=== PATIENT | female | born 1955 | race Caucasian/White ===

== ENCOUNTER 2021-03-02 12:15 | Emergency (ER) | payer MEDICARE, MEDICAID, SELFPAY ==
--- NOTE | ~2021-03-02 | XR_ITS ---
EXAMINATION: XR shoulder RT min 2V DATE: 03/02/2021 12:57 INDICATION: Right shoulder pain. TECHNIQUE: 4 views of right shoulder were obtained. COMPARISON: None. FINDINGS: Bone alignment is normal. No fracture. There is mild osteoarthritis of glenohumeral joint a nd severe osteoarthritis of acromioclavicular joint. There is calcific tendinitis of the rotator cuff . IMPRESSION: 1. Polyarticular osteoarthritis. 2. Calcific tendinitis of the rotator cuff. Reviewed, dictated and finalized at location A. IVING MANAGER
[2021-03-02 12:27] VITALS: BP 148/66; PULSE 87; RESP 18; TEMP 36.1; O2SAT 99
--- NOTE | 2021-03-02 12:44 | ED.UPPEXIN ---
HPI - Extremity Injury (Upper) General Chief Complaint: Extremity Problem,Nontraumatic Stated Complaint: Shoulder Pain Time Seen by Provider: 03/02/21 12:45 Source: patient and RN notes reviewed Mode of arrival: ambulatory Limitations: no limitations History of Present Illness HPI narrative: 65-year-old female presents to the [facility] with 2 weeks of right posterior shoulder pain. Denies any trauma. Has full range of motion. No numbness or tingling in extremity. Denies chest pain or shortness of breath. Denies any abdominal pain. Related Data Allergies Allergy/AdvReac Type Severity Reaction Status Date / Time acetaminophen Allergy Severe Nausea Verified 08/25/17 21:44 oxycodone Allergy Severe Nausea Verified 08/25/17 21:44 amoxicillin Allergy Mild Verified 02/04/14 15:53 POTASSIUM CLAVULANATE Allergy Mild Uncoded 02/04/14 15:53 Review of Systems Review of Systems: All systems reviewed & are unremarkable except as noted in HPI and below Constitutional: Constitutional: Reports no additional constitutional complaints, Denies chills and Denies fever(s) Eyes: Eyes: Reports no additional eye complaints ENT: Reports system reviewed and no additional complaints, except as documented Cardiovascular: Cardiovascular: Reports no additional cardiovascular complaints and Denies chest pain Respiratory: Respiratory: Reports no additional respiratory complaints, Denies cough and Denies dyspnea Gastrointestinal: Gastrointestinal: Reports no additional gastrointestinal complaints, Denies abdominal pain, Denies nausea and Denies vomiting Musculoskeletal: Musculoskeletal: Reports as per HPI, Reports arthralgias (Right posterior shoulder) and Denies joint swelling Integumentary/Breasts: Skin/Breast: Reports system reviewed and no additional complaints, except as docu, Denies erythema and Denies rash Neurologic: Reports system reviewed and no additional complaints, except as documented Psychiatric: Psychiatric: Reports no additional psychiatric complaints Allergic/Immunologic: Allergic/Immunologic: Reports no additional allergic/immunologic complaints [facility] Past Medical History Medical History (Updated 03/02/21 @ 19:52 by Mora Thornton) Patient denies medical problems Surgical History Surgical History (Updated 03/02/21 @ 19:52 by Mora Thornton) No significant past surgical history Family History Family History Father Family history of diabetes mellitus in first degree relative Mother Hypertension Social History Social History Smoking status: Never smoker Alcohol intake: current Comments At the time of my signature, I reviewed and agree with the nursing past medical, surgical, social, and family history. There is no relevant family history pertinent to the patient complaint. Exam Const: General: healthy appearing, no acute distress and alert Nutritional Appearance: well nourished Orientation/consciousness: patient oriented x3 Limitations: no limitations HENMT: Head: normal to inspection Ears: external ears normal, TM's normal bilaterally and EAC's normal Eyes: Pupils: Equal, round and reactive pupils present Neck: Neck: normal visual inspection, no lymphadenopathy and no meningeal signs Chest: Chest palpation & inspection: normal inspection of the chest Resp: Effort & Inspection: normal respiratory effort and no use of accessory muscles Auscultation: clear to auscultation bilaterally, no crackles, no rales, no rhonchi and no wheezes Cardio: Rate: regular rate Rhythm: regular rhythm GI: GI Palp: Yes Soft to palpation and No Tenderness to palpation present (GI) Back/Spine/Pelvis: Back: no CVA tenderness Skin: General skin exam: normal color Rashes: no rashes Wounds: no wounds Neuro: General: patient oriented x3, moves all extremities, no meningeal signs and no focal motor deficits Speech: normal sp
== END 2021-03-02 13:30 | disposition home or self-care (01) ==
PROVIDERS: Emergency Provider Nurse Practitioner; PCP Physician Assistant
DX: M13.811 Other specified arthritis, right shoulder (principal); M75.31 Calcific tendinitis of right shoulder
CPT/HCPCS: 73030; 99213; G0463

== ENCOUNTER 2021-04-05 01:11 | Day surgery (SDC) | payer MEDICARE, MEDICAID, SELFPAY ==
[2021-03-27 14:19] VITALS: BMI 32.1
[2021-04-05 07:24] VITALS: BP 159/93; PULSE 84; RESP 18; TEMP 36.3; O2SAT 99
--- NOTE | 2021-04-05 07:33 | WPDANESEPPF ---
Anes - Initial Pre Proc Eval Procedure: Operation Date: 04/05/21 09:30 Proposed Procedures p Colonoscopy - Ramin Ferrera MD Date/Time: 04/05/21 07:33 Surgeon: Ramin Ferrera MD Pre Op Diagnosis: change in bowel habits Patient Data Age: 65 Gender: F Height: 1.65 m Weight: 87.7 kg Last Vital Signs Temp 36.3 C L 04/05/21 07:24 Pulse 84 04/05/21 07:24 Resp 18 04/05/21 07:24 BP 159/93 H 04/05/21 07:24 Pulse Ox 99 04/05/21 07:24 Allergies Allergy/AdvReac Type Severity Reaction Status Date / Time amoxicillin AdvReac Mild Nausea and Verified 04/05/21 07:23 Vomiting clavulanic acid AdvReac Mild Nausea and Verified 04/05/21 07:23 [From Augmentin] Vomiting Home Medications Medication Instructions Recorded Confirmed Type bupropion HCl 100 mg PO DAILY 03/27/21 03/27/21 History cyanocobalamin (vitamin B-12) 1,000 mcg SUBCUT WEEKLY 03/27/21 03/27/21 History dulaglutide [Trulicity] 3 mg SUBCUT WEEKLY 03/27/21 03/27/21 History fenofibrate nanocrystallized 145 mg PO DAILY 03/27/21 03/27/21 History gabapentin 600 mg PO TID 03/27/21 03/27/21 History ibuprofen 800 mg PO BID 03/27/21 03/27/21 History insulin degludec [Tresiba 68 unit SUBCUT HS 03/27/21 03/27/21 History FlexTouch U-200] levothyroxine [Euthyrox] 100 mcg PO DAILY 03/27/21 03/27/21 History lisinopril 20 mg PO DAILY 03/27/21 03/27/21 History metformin 1,000 mg PO DAILY 03/27/21 03/27/21 History omeprazole 40 mg PO DAILY 03/27/21 03/27/21 History trazodone 150 mg PO HS 03/27/21 03/27/21 History Patient hx anesthesia problems: none Family hx anesthesia problems: none Results Review: All pre-operative results and documents have been reviewed as part of the pre-operative evaluation. 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 No significant past surgical history Family History Family History Father Family history of diabetes mellitus in first degree relative Mother Hypertension Social History Social History Smoking status: Never smoker Alcohol intake: never Substance use: never Substance use type: does not use Living arrangements: with family Spiritual care concerns: No Anes - Eval Final PreProcedure Day of Procedure 04/05/21 07:33 Patient weight: morbidly obese Heart: regular rate and rhythm Lungs: clear to auscultation Airway: Mallampati scale class II Neurological: alert and oriented Last oral intake: >/= 8 hours ASA classification: III Emergent: no Anesthetic plan: proceed Anesthesia type and monitoring: general GIVS and standard monitoring Results Review: All pre-operative results and documents have been reviewed as part of the pre-operative evaluation. Informed Consent: The patient's anesthetic plan and its attendant risks and benefits were discussed with the patient/family/POA. Questions were solicited and answers provided to the satisfaction of the patient/family/POA.
[2021-04-05] MEDS: LACTATED RINGERS 1,000 ML 150 ML IV CONT (07:50)
--- NOTE | 2021-04-05 08:11 | WPDGICN ---
Assessment and Plan Assessment and plan (1) Change in bowel habit: Code(s): R19.4 - Change in bowel habit Status: Acute Assessment and Plan: Patient has had a change in bowel habits with sudden urgency. Often uncontrolled stools. Plan for patient to try a high-fiber diet fiber supplements may be beneficial. A colonoscopy has been requested will be performed to exclude organic disease. GI Consult Note Consult date/time: 04/05/21 08:11 HPI: Mikala Sahu is a 65 year old female Presents for a colonoscopy. Patient reports recent poor control of stools. She sometimes will wake up in the morning with urgency and bowel movement that is uncontrolled. Patient denies any bleeding. She has no abdominal pain. Symptoms occur intermittently. Patient does have a prior history of colonoscopy that was unremarkable some time ago. Patient notices recent change in symptoms over the last 4-6 months. She presents today for colonoscopy. 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 No significant past surgical history Family History Family History Father Family history of diabetes mellitus in first degree relative Mother Hypertension Social History Social History Smoking status: Never smoker Alcohol intake: never Substance use: never Substance use type: does not use Living arrangements: with family Spiritual care concerns: No Meds Home Medications and Allergies Home Medications Medication Instructions Recorded Confirmed Type bupropion HCl 100 mg PO DAILY 03/27/21 03/27/21 History cyanocobalamin (vitamin B-12) 1,000 mcg SUBCUT WEEKLY 03/27/21 03/27/21 History dulaglutide [Trulicity] 3 mg SUBCUT WEEKLY 03/27/21 03/27/21 History fenofibrate nanocrystallized 145 mg PO DAILY 03/27/21 03/27/21 History gabapentin 600 mg PO TID 03/27/21 03/27/21 History ibuprofen 800 mg PO BID 03/27/21 03/27/21 History insulin degludec [Tresiba 68 unit SUBCUT HS 03/27/21 03/27/21 History FlexTouch U-200] levothyroxine [Euthyrox] 100 mcg PO DAILY 03/27/21 03/27/21 History lisinopril 20 mg PO DAILY 03/27/21 03/27/21 History metformin 1,000 mg PO DAILY 03/27/21 03/27/21 History omeprazole 40 mg PO DAILY 03/27/21 03/27/21 History trazodone 150 mg PO HS 03/27/21 03/27/21 History Allergies Allergy/AdvReac Type Severity Reaction Status Date / Time amoxicillin AdvReac Mild Nausea and Verified 04/05/21 07:23 Vomiting clavulanic acid AdvReac Mild Nausea and Verified 04/05/21 07:23 [From Augmentin] Vomiting Vital Signs Vital Signs - 24 hr 04/05/21 07:24 Temperature 97.3 F L Pulse Rate 84 Respiratory Rate 18 Blood Pressure 159/93 H Pulse Oximetry 99 Exam Narrative: Physical exam reveals patient be alert. Vital signs stable. HEENT exam is unremarkable. Patient is anicteric. Lungs are clear to auscultation and percussion. Heart is without murmur or extra sounds. Abdominal exam bowel sounds are present soft nontender with no organomegaly. Digital external rectal exam is normal.
--- NOTE | 2021-04-05 08:13 | SUR.PREOP ---
BS 121 PER RUBIN
[2021-04-05 08:47] VITALS: BP 108/66; PULSE 73; RESP 19; O2SAT 99
[2021-04-05 08:57] VITALS: BP 134/74; PULSE 75; RESP 22; O2SAT 100
[2021-04-05 09:07] VITALS: BP 133/78; PULSE 77; RESP 21; O2SAT 100
== END 2021-04-05 09:24 | disposition home or self-care (01) ==
PROVIDERS: PCP Physician Assistant; Visit Provider Internal Medicine Gastroenterology
PROC: 0DJD8ZZ Inspection of Lower Intestinal Tract, Via Natural or Artificial Opening Endoscopic (ICD-10-PCS; CPT 45378; principal; 2021-04-05 09:30)
DX: R19.4 Change in bowel habit (principal); D12.3 Benign neoplasm of transverse colon; D12.2 Benign neoplasm of ascending colon; K64.8 Other hemorrhoids; K57.30 Diverticulosis of large intestine without perforation or abscess without bleeding; E11.9 Type 2 diabetes mellitus without complications; E03.9 Hypothyroidism, unspecified; F32.9 Major depressive disorder, single episode, unspecified; E66.9 Obesity, unspecified; Z68.31 Body mass index [BMI] 31.0-31.9, adult; Z79.84 Long term (current) use of oral hypoglycemic drugs; Z79.899 Other long term (current) drug therapy; Z79.4 Long term (current) use of insulin
CPT/HCPCS: 45385; 88305; J2704; J7120

== ENCOUNTER → 2021-06-15 11:02 | Outpatient (CLI) | payer MEDICARE, MEDICAID, SELFPAY ==
--- NOTE | ~2021-06-15 | MM_ITS ---
EXAMINATION: MM screening [facility] BI w alex HISTORY: Screening TECHNIQUE: Craniocaudal and mediolateral oblique 3-D tomosynthesis images were obtained and synthetic 2-D images were generated. CAD analysis was submitted and interpreted. COMPARISON: 09/05/2012 BREAST PARENCHYMAL COMPOSITION: There are scattered areas of fibroglandular density. FINDINGS: There is no evidence of suspicious mass, calcification, or architectural distortion to sugg est malignancy in either breast. There has been no suspicious interval change. IMPRESSION: 1. No mammographic evidence of malignancy. 2. Recommend routine screening mammography in one year. BI-RADS Category 1: Negative Reviewed, dictated and finalized at location A.
--- NOTE | ~2021-06-15 | DEXA_ITS ---
Bone Density Report Name: ERASTO MARIA Age: 65 Sex: Female Ethnicity: White Date of : 1955 Indication: postmenopausal; screening for osteoporosis; Referring Provider: ARVIND, SUNI HDZ Study: Bone densitometry was performed. Exam Date: June 15, 2021 Accession number: [id number] Bone Density: Region BMD T-score Z-score Classification AP Spine (L3, L4) 1.148 0.4 2.3 Normal Femoral Neck (Left) 0.748 -0.9 0.6 Normal Total Hip (Left) 0.975 0.3 1.5 Normal Femoral Neck (Right) 0.680 -1.5 0.0 Osteopenia Total Hip (Right) 0.850 -0.8 0.5 Normal Total Hip Mean 0.913 -0.3 1.0 Normal World Health Organization criteria for BMD impression classify patients as: Normal (T-score at or above -1.0), Osteopenia (T-score between -1.0 and -2.5), or Osteoporosis (T-score at or below -2.5). 10-year Fracture Risk(1): Major Osteoporotic Fracture 8.4% Hip Fracture 0.9% Reported Risk Factors: [place] (), Neck BMD=0.680, BMI=32.1 (1) FRAX(R) Version 3.08. Fracture probability calculated for an untreated patient. Fracture probability may be lower if the patient has received treatment. Previous Exams: Region Exam Age BMD T-score BMD Change BMD Change Date g/cm2 vs Baseline vs Previous AP Spine(L3, L4) 06/15/2021 65 1.148 0.4 -0.004 -0.060 09/05/2012 57 1.208 1.0 0.056* 0.056* 11/13/2007 52 1.152 0.5 Total Hip(Left) 06/15/2021 65 0.975 0.3 -0.182 -0.139 09/05/2012 57 1.115 1.4 -0.043* -0.043* 11/13/2007 52 1.158 1.8 Total Hip(Right) 06/15/2021 65 0.850 -0.8 -0.265 -0.250 09/05/2012 57 1.101 1.3 -0.014 -0.014 11/13/2007 52 1.115 1.4 *Denotes significance at 95% confidence level, LSC for AP Spine = 0.022 g/cm2, LSC for Total Hip = 0.027 g/cm2 Clinical Information Provided by Patient: Has used the following medications: Vitamin D Patient maximum height was 65 Menopause Age: 51 No regular weight bearing exercise Drinks caffeinated beverages Onset of menses at age 12 Number of children 2 Impression: The patient has low bone mass, based on the Right Femoral Neck T-score. The patient has an estimated ten-year risk of hip fracture of 0.9% and an estimated ten-year risk of major fracture of 8.4%, based on the WHO FRAX algorithm. No significant bone loss was observed. Discussion: BONE DE
== END ==
PROVIDERS: PCP Physician Assistant; Visit Provider Physician Assistant
DX: Z12.31 Encounter for screening mammogram for malignant neoplasm of breast (principal); Z78.0 Asymptomatic menopausal state; M85.851 Other specified disorders of bone density and structure, right thigh
CPT/HCPCS: 77063; 77067; 77080

== ENCOUNTER → 2022-06-17 11:13 | Outpatient (CLI) | payer MEDICARE, MEDICAID, SELFPAY ==
--- NOTE | ~2022-06-17 | MM_ITS ---
EXAMINATION: MM screening [facility] BI w alex HISTORY: Screening mammogram TECHNIQUE: Craniocaudal and mediolateral oblique 3-D tomosynthesis images were obtained and synthetic 2-D images were generated. CAD analysis was submitted and interpreted. COMPARISON: 06/15/2021, 09/05/2012 BREAST PARENCHYMAL COMPOSITION: There are scattered areas of fibroglandular density. FINDINGS: RIGHT BREAST: No suspicious mass, calcification, or architectural distortion are identified to sugges t malignancy. There has been no suspicious interval change. LEFT BREAST: There is a possible mass in the middle third of the upper inner breast best appreciated 8.5 cm from the nipple on craniocaudal tomosynthesis image 37/52. IMPRESSION: 1. Possible left breast mass. 2. Additional mammographic views and possible breast ultrasound are recommended. BI-RADS Category 0: Incomplete: Needs additional imaging evaluation. Reviewed, dictated and finalized at location A. IMPRESSION: 1. Possible left breast mass. 2. Additional mammographic views and possible breast ultrasound are recommended . BI-RADS Category 0: Incomplete: Needs additional imaging evaluation.
== END ==
PROVIDERS: PCP Physician Assistant; Visit Provider Physician Assistant
DX: Z12.31 Encounter for screening mammogram for malignant neoplasm of breast (principal); R92.8 Other abnormal and inconclusive findings on diagnostic imaging of breast
CPT/HCPCS: 77063; 77067

== ENCOUNTER → 2022-08-08 08:33 | Outpatient (CLI) | payer MEDICARE, MEDICAID, SELFPAY ==
--- NOTE | ~2022-08-08 | MM_ITS ---
EXAMINATION: MM diagnostic nahid LT w alex HISTORY: Follow-up possible left breast mass TECHNIQUE: Additional 3-D tomosynthesis images of the left breast were performed and synthetic 2-D im ages were generated. CAD analysis was submitted and interpreted. COMPARISON: Comparison to multiple prior studies sequentially, with oldest reviewed study dated 08/2012. BREAST PARENCHYMAL COMPOSITION: Breast composed of scattered areas of fibroglandular density FINDINGS: There are no suspicious masses, calcifications or architectural distortion in the left [address] to suggest malignancy. IMPRESSION: 1. No mammographic evidence for malignancy in the left breast. 2. . Routine yearly screening mammogram and regular clinical breast examination are recommended. BI-RADS Category 1: Negative Reviewed, dictated and finalized at location A.
== END ==
PROVIDERS: PCP Physician Assistant; Visit Provider Physician Assistant
DX: R92.8 Other abnormal and inconclusive findings on diagnostic imaging of breast (principal)
CPT/HCPCS: 77061; 77065; G0279

== ENCOUNTER 2023-08-10 14:32 | Emergency (ER) | payer MEDICARE, MEDICAID, SELFPAY ==
--- NOTE | ~2023-08-10 | XR_ITS ---
Left Humerus Technique: AP and lateral views were obtained. Clinical History: Pain Findings: No fracture or dislocation is seen. Osseous alignment is anatomic. Visualized joint spaces are grossly preserved. Soft tissues are unremarkable. Impression: Unremarkable examination. No fracture or dislocation. Reviewed, dictated and finalized at location . Impression: Unremarkable examination. No fracture or dislocation.
[2023-08-10 14:44] VITALS: BP 141/73; PULSE 85; RESP 14; TEMP 37.1; O2SAT 98
--- NOTE | 2023-08-10 15:23 | ED.EXTPRO ---
HPI - Extremity Problem General Chief complaint: Extremity Problem,Nontraumatic Stated complaint: Bruising Lt Upper Arm Source: patient Mode of arrival: ambulatory Limitations: no limitations History of Present Illness HPI Narrative: Pt presents for evaluation of pain, swelling and bruising to the left upper arm. She states six days ago she was lifting a case of water and felt a quick jolt in her left upper arm. Today she noted swelling, pain and bruising in the affected area. She states at rest her pain is 2/10 in severity. With movements, including reaching overhead and extending the arm, she develops a sharp pain that she rates 7/10 in severity. The pain is quick and then resolves. She has not taken any medication for her symptoms. No loss of ROM. She is right hand dominant. Related Data Home Medications Medication Instructions Recorded Confirmed bupropion HCl 100 mg tablet 100 mg PO DAILY 03/27/21 08/10/23 cyanocobalamin (vitamin B-12) 1,000 mcg subcut WEEKLY 03/27/21 08/10/23 1,000 mcg/mL injection solution dulaglutide 3 mg/0.5 mL 3 mg subcut WEEKLY 03/27/21 08/10/23 subcutaneous pen injector (Trulicity) fenofibrate nanocrystallized 145 145 mg PO DAILY 03/27/21 08/10/23 mg tablet gabapentin 600 mg tablet 600 mg PO TID 03/27/21 08/10/23 ibuprofen 800 mg tablet 800 mg PO BID 03/27/21 08/10/23 insulin degludec 200 unit/mL (3 68 unit subcut HS 03/27/21 08/10/23 mL) subcutaneous pen (Tresiba FlexTouch U-200 insulin) levothyroxine 100 mcg tablet 100 mcg PO DAILY 03/27/21 08/10/23 (Euthyrox) lisinopril 20 mg tablet 20 mg PO DAILY 03/27/21 08/10/23 metformin 1,000 mg tablet 1,000 mg PO DAILY 03/27/21 08/10/23 omeprazole 40 mg capsule,delayed 40 mg PO DAILY 03/27/21 08/10/23 release trazodone 150 mg tablet 150 mg PO HS 03/27/21 08/10/23 rosuvastatin 20 mg tablet 20 mg PO DAILY 08/10/23 08/10/23 Allergies Allergy/AdvReac Type Severity Reaction Status Date / Time acetaminophen Allergy Other Verified 08/10/23 14:42 [From Darvocet-N] propoxyphene Allergy Other Verified 08/10/23 14:42 [From Darvocet-N] amoxicillin AdvReac Mild Nausea and Verified 08/10/23 14:42 Vomiting clavulanic acid AdvReac Mild Nausea and Verified 08/10/23 14:42 [From Augmentin] Vomiting Review of Systems Review of Systems: CONSTITUTIONAL: Denies fever, chills, or sweats. EYES: Denies visual changes, redness, or discharge. ENT: Denies rhinorrhea, congestion, sore throat, or otalgia. CARDIOVASCULAR: Denies chest pain, palpitations, or edema. RESPIRATORY: Denies cough or dyspnea. GASTROINTESTINAL: Denies abdominal pain, nausea, vomiting, or diarrhea. GENITOURINARY: Denies dysuria or hematuria. SKIN: Reports bruising to the left upper arm MUSCULOSKELETAL: Reports pain and swelling to left upper arm NEUROLOGIC: Denies headache, numbness, dizziness, or weakness. PSYCHIATRIC: Denies anxiety or depression. 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 HEAD: Normocephalic, atraumatic. EYES: PERRLA and EOMI. ENT: Nares clear, no rhinorrhea
== END 2023-08-10 16:15 | disposition home or self-care (01) ==
PROVIDERS: Emergency Provider Nurse Practitioner; PCP Physician Assistant
DX: S46.202A Unspecified injury of muscle, fascia and tendon of other parts of biceps, left arm, initial encounter (principal); X50.9XXA Other and unspecified overexertion or strenuous movements or postures, initial encounter; E11.9 Type 2 diabetes mellitus without complications; Z79.4 Long term (current) use of insulin; E03.9 Hypothyroidism, unspecified; E66.01 Morbid (severe) obesity due to excess calories; Z68.33 Body mass index [BMI] 33.0-33.9, adult; Z89.511 Acquired absence of right leg below knee; F32.A Depression, unspecified
CPT/HCPCS: 73060; 99213; A4565; G0463

== ENCOUNTER 2023-09-24 12:42 | Outpatient (CLI) | payer MEDICARE, MEDICAID, SELFPAY ==
--- NOTE | ~2023-09-24 | MM_ITS ---
EXAMINATION: MM screening nahid BI w alex HISTORY: Screening TECHNIQUE: Craniocaudal and mediolateral oblique 3-D tomosynthesis images were obtained and synthetic 2-D images were generated. CAD analysis was submitted and interpreted. COMPARISON: Comparison to multiple prior studies sequentially, with oldest reviewed study dated 01/02. BREAST PARENCHYMAL COMPOSITION: Not dense: There are scattered areas of fibroglandular density. FINDINGS: There is no evidence of suspicious mass, calcification, or architectural distortion to sugg est malignancy in either breast. There has been no suspicious interval change. IMPRESSION: 1. No mammographic evidence of malignancy. 2. Recommend routine screening mammography in one year. BI-RADS Category 1: Negative Reviewed, dictated and finalized at location B.
== END 2023-09-24 12:43 ==
PROVIDERS: PCP Internal Medicine Endocrinology, Diabetes & Metabolism; Visit Provider Physician Assistant
DX: Z12.31 Encounter for screening mammogram for malignant neoplasm of breast (principal)
CPT/HCPCS: 77063; 77067

== ENCOUNTER 2024-01-13 10:39 | Outpatient (CLI) | payer MEDICARE, MEDICAID, SELFPAY ==
--- NOTE | ~2024-01-13 | US_ITS ---
EXAMINATION: US renal BI DATE: 01/13/2024 10:59 INDICATION: Stage IIIB chronic kidney disease TECHNIQUE: Multiple ultrasound grayscale images of the kidneys were obtained. COMPARISON: None. FINDINGS: The right kidney measures 11.4 x 5.4 x 6.8 cm. The left kidney measures 9.9 x 5.3 x 5.3 cm. The kidne ys demonstrate normal echogenicity. There is a focal bulge at the periphery of the mid left kidney wh ich is isoechoic to remainder of the surrounding kidney most likely an anatomic variant dromedary hum p although could not exclude solid neoplasm. There is no hydronephrosis in either kidney. No stones identified. The bladder is normal. IMPRESSION: 1. Focal bulge along the periphery of the mid left kidney most likely a normal dromedary hump but wo uld consider further evaluation with pre- and postcontrast MRI or CT to exclude solid neoplasm. No hy dronephrosis. Reviewed, dictated and finalized at location B. ORY SUPERVISOR IMPRESSION: 1. Focal bulge along the periphery of the mid left kidney most likely a normal dromedary hump but would consider further evaluation with pre- and postcontras t MRI or CT to exclude solid neoplasm. No hydronephrosis.
== END 2024-01-13 10:40 | disposition home or self-care (01) ==
LOC: MICIMG 10:40
PROVIDERS: PCP Physician Assistant; Visit Provider Nurse Practitioner Family
DX: N18.32 Chronic kidney disease, stage 3b (principal)
CPT/HCPCS: 76775

== ENCOUNTER 2024-03-11 14:47 | Outpatient (CLI) | payer MEDICARE, MEDICAID, SELFPAY ==
--- NOTE | ~2024-03-11 | MR_ITS ---
EXAMINATION: MR renal wo/w con DATE: 03/11/2024 15:39 INDICATION: Kidney mass. TECHNIQUE: Magnetic resonance imaging (MRI) of the abdomen was performed without and with 18 mL Multi Elias intravenous contrast. COMPARISON: Kidney ultrasound 01/13/2024 FINDINGS: There is diffuse hepatic steatosis. The gallbladder is absent. The spleen, pancreas, and adrenal glan ds are normal. There is focal cortical thinning of right kidney. There are cysts in right kidney ani uring up to 6 mm. There is mild atrophy of left kidney. There is a dromedary hump of the left kidney correlating with the ultrasound finding. There are no dilated loops of bowel. There are no pathologic ally enlarged lymph nodes. There is no free intraperitoneal fluid. There is severe lumbar spondylosis . IMPRESSION: 1. Normal variant morphology of the left kidney correlating with the ultrasound finding. Reviewed, dictated and finalized at location A. OR ENGINEERING TECH
== END 2024-03-11 14:48 | disposition home or self-care (01) ==
LOC: MICIMG 14:49
PROVIDERS: PCP Physician Assistant; Visit Provider Nurse Practitioner Family
DX: N28.9 Disorder of kidney and ureter, unspecified (principal)
CPT/HCPCS: 74183; A9577

== ENCOUNTER 2024-07-07 12:34 | Outpatient (CLI) | payer MEDICARE, MEDICAID, SELFPAY ==
--- NOTE | ~2024-07-07 | CT_ITS ---
Non-contrast CT scan of the Abdomen Clinical indication: Adrenal adenoma Technique: 2.5 mm axial scans were obtained through the abdomen without intravenous or oral contrast . Dose reduction technique was used on this scan by utilizing automated exposure control and iterativ e reconstruction technique. The dose-length product (DLP) was 687.26 mGy-cm. Findings: Images through the lung bases reveal no abnormalities. The liver, spleen, pancreas, kidneys, and adrenals appear normal. Cholecystectomy clips are present. There is no aortic aneurysm. Visualized bowel loops are unremarkable. No ascites. Impression: No significant abnormality of the adrenal glands. Reviewed, dictated and finalized at location M. Impression: No significant abnormality of the adrenal glands.
== END 2024-07-07 12:35 | disposition home or self-care (01) ==
LOC: MICIMG 12:35
PROVIDERS: PCP Physician Assistant; Visit Provider Internal Medicine Endocrinology, Diabetes & Metabolism
DX: E27.9 Disorder of adrenal gland, unspecified (principal); E11.40 Type 2 diabetes mellitus with diabetic neuropathy, unspecified
CPT/HCPCS: 74150

== ENCOUNTER 2024-09-27 12:10 | Outpatient (CLI) | payer MEDICARE, SELFPAY ==
--- NOTE | ~2024-09-27 | MM_ITS ---
EXAMINATION: MM screening nahid BI w alex HISTORY: Screening TECHNIQUE: Craniocaudal and mediolateral oblique 3-D tomosynthesis images were obtained and synthetic 2-D images were generated. CAD analysis was submitted and interpreted. COMPARISON: Comparison to multiple prior studies sequentially, with oldest reviewed study dated 01/02. BREAST PARENCHYMAL COMPOSITION: Not dense: There are scattered areas of fibroglandular density. FINDINGS: There is no evidence of suspicious mass, calcification, or architectural distortion to sugg est malignancy in either breast. There has been no suspicious interval change. IMPRESSION: 1. No mammographic evidence of malignancy. 2. Recommend routine screening mammography in one year. BI-RADS Category 1: Negative Reviewed, dictated and finalized at location B.
== END 2024-09-27 12:11 | disposition home or self-care (01) ==
LOC: MICIMG 12:10
PROVIDERS: PCP Physician Assistant; Visit Provider Physician Assistant
DX: Z12.31 Encounter for screening mammogram for malignant neoplasm of breast (principal)
CPT/HCPCS: 77063; 77067

== ENCOUNTER 2024-09-29 00:11 | Day surgery (SDC) | payer MEDICARE, SELFPAY ==
[2024-09-13 14:45] VITALS: BMI 29.9
--- OUTSIDE RECORDS SUMMARY | 2024-09-29 00:13 | XMS_ITS ---
Author Organization [facility] Address [address] [place] [address] Care Team Providers Care Electrical Continuity Inspector Name Role Phone Yvonne James Primary Care Provider [phone] REASON FOR VISIT 2 month follow up Encounters Encounter Location Date Provider Diagnosis [facility] - Yvonne James [address] [place] [address] 04/19/2024 Yvonne James Plan Of Treatment No Information Progress Notes * CANDACE AmairaniaDOB:1955 ( 69 yo F)Acc No.[id number]:04/19/2024 Progress Notes Patient: Mikala PARK Provider: Tory James MD :1955 A ge:68 Y S ex:Female Date:04/19/2024 [facility] Subjective: * Chief Complaints: * 1 . 2 month follow up. * Medical History: Objective: * Vitals: Assessment: Plan: * Treatment: * Billing Information: * Visit Code: * Procedure Codes: * Electronic signature of Cosmo James MD on 09/29/2024 at 12:12 AM CDT Sign off status: Pending * Provider: Tory James MD Date: 04/19/2024 Generated for Lazarus chase/Saturnino/Burtitting on: 09/29/2024 12:12 AM CDT
--- OUTSIDE RECORDS SUMMARY | 2024-09-29 00:13 | XMS_ITS ---
Author Organization [facility] Address [address] [place] [phone] Care Team Providers Care Postdoctoral Scholar Name Role Phone Yvonne James Primary Care Provider [phone] REASON FOR VISIT programming pump Encounters Encounter Location Date Provider Diagnosis AMMO Dr. James [address] [place] [phone] 08/24/2024 Yvonne James Plan Of Treatment Next Appt Details Provider Name:Yvonne James, 01:20:00 PM, [address] [place] [address], [phone], Progress Notes * Amairani MARIAaDOB:1955 ( 69 yo F)Acc No.[id number]:08/24/2024 Progress Notes Patient: Mikala Olson Provider: Tory James MD :1955 A ge:69 Y S ex:Female Date:08/24/2024 Address[place] [place] [address] Subjective: * Chief Complaints: * P rogramming pump Billing Information: * Procedure Codes: * Electronic signature of Cosmo James MD on 09/29/2024 at 12:12 AM CDT Sign off status: Pending * Provider: Tory James MD Date: 08/24/2024 Generated for Lazarus chase/Saturnino/eTransmitting on: 09/29/2024 12:12 AM CDT
--- OUTSIDE RECORDS SUMMARY | 2024-09-29 00:13 | XMS_ITS | Clinical Summary ---
Author Organization [facility] Address [address] [place] [address] Care Team Providers Care Director Mba Name Role Phone Adriane Lakeisha CASAS Primary Care Provider [phone] Allergies Active Allergy Reactions Criticality Noted Date Comments Amoxicillin-Pot Clavulanate Hives 09/03/19 19 Oxycodone-Acetaminophen Vomiting 10/14/2018 Medications levothyroxine 100 MCG tablet Take 100 mcg by mouth every morning. Active omeprazole 40 MG capsule Take 40 mg by mouth daily. Active ibuprofen 800 MG tablet Take 800 mg by mouth every 6 (six) hours as needed for Pain. Active atorvastatin 40 MG tablet Take 40 mg by mouth nightly at bedtime. Active omega-3 acid 1 GM capsule Take 10 mg by mouth 2 (two) times daily. Active fenofibrate 145 MG tablet Take 145 mg by mouth daily. Active lisinopril 40 MG tablet Take 40 mg by mouth daily. Active gabapentin 600 MG tablet Take 600 mg by mouth 3 (three) times daily. Active metFORMIN ER, OSM, 1000 MG TABLET SR 24 HR 24 hr tablet Take 1,000 mg by mouth 2 (two) times daily with meals. Active buPROPion 100 MG tablet Take 100 mg by mouth 2 (two) times daily. Active furosemide 20 MG tablet Take 20 mg by mouth daily. Active hydrocodone-khloe taminophen 10-325 MG tablet Take 1 tablet by mouth every 6 (six) hours as needed for Pain. Active zaleplon 5 MG capsule Take 5 mg by mouth nightly at bedtime. Active Social History Tobacco Use Types Packs/Day Years Used Date Smoking Tobacco: Former Cigarettes Q uit: 09/02/1993 Smokeless Tobacco: Never Alcohol Use Standard Drinks/Week Comments No 0 (1 standard drink = 0.6 oz pur e alcohol) AUDIT-C Answer Date Recorded Frequency of Alcohol Consumption Never 09/02/2018 Average Number of Drinks Not on file 019 Frequency of Binge Drinking Not on file 05/2018 Comments No Sex and Gender Information Value Date Recorded Sex Assigned at Not on file Legal Sex Female 4:32 PM CDT Gender Identity Not on file Sexual Orientation Not on file Last Filed Vital Signs Vital Sign Reading Time Taken Comments Blood Pressure 114/62 10/14/2018 9:00 AM CDT Pulse 78 10/14/2018 9:00 AM CDT Temperature 36.4 C (97.6 F) 09/09/2018 7:27 AM CDT Respiratory Rate 16 10/14/2018 9:00 AM CDT Oxygen Saturation 98% 10/14/2018 9:00 AM CDT Inhaled Oxygen Concentration - - Weight 88 kg (194 lb) 10/12/2018 9:22 AM CDT Height 165.1 cm (5' 5) 10/12/2018 9:22 AM CDT Body Mass Index 32.28 10/12/2018 9:22 AM CDT Plan of Treatment Health Maintenance Due Date Last Done Comments Colorectal Cancer Screening Colonoscopy (10 Years) 1955 Hepatitis C 1974 DTaP, Tdap and Td Vaccines ( 1 - Tdap) 07/13/1975 Mammogram Screening 1996 Zoster Vaccines (1 of 2) 2006 Annual Medicare Wellness Visit 2021 Dexa Scan (General) 2021 Pneumococcal Vaccine: 50+ Years (3 of 3 - PCV20 or PCV21) 01/29/2022 01/29/2017, 12/08/2015 COVID-19 Vaccine ( - 2023-2 5 season) 2023 RSV Immunization or 60+ Years (1 - 1-dose 75+ series) 07/13/2031 Meningococcal B Vaccine Aged Out No l onger eligible based on patient's age to complete this topic Meningococcal Vaccine Aged Out No wendy celeste eligible based on patient's age to complete this topic RSV Immunizations Under 20 Months Aged Out No longer eligible b ased on patient's age to complete this topic Medical Devices Implanted Type Area Microchip Specialist Device Identifier Shelf Expiration Date Model / Serial / Lot Iol Bend [employer]ision Zcboo - [id number] Implanted:Qty: 1 on 09/09/2018 by Bjorn Lynn MD at [facility] Lens [employer] 09/19/2021 ZCB00 / / Iol Eran Precision Zcboo - [id number] Implanted:Qty: 1 on 10/14/2018 by Bjorn Lynn MD at [facility] Lens Right: Eye [employer] 07/25/2020 ZCB00 / [id number] / Insurance MEDICAID DEPT OF HUMAN [address] [place] [address] Care Teams Director Mba Relationship Specialty Start Date End Date Lakeisha Forrest PA PCP - General PHYSICIAN SUPERVISOR HARD CANDY 09/09/18
--- OUTSIDE RECORDS SUMMARY | 2024-09-29 00:13 | XMS_ITS | Clinical Summary ---
Author Organization [facility] Address [address] [place] [address] Care Team Providers Care Gas Line Installer Supervisor Name Role Phone Gene Hughes MD Primary Care Provider [phone] Source Comments [facility],non-owned Affiliates and Associated Physician Practices is amultiple site organization consisting of ambulatory clinics and hospital sitesin [place], [place], [place] and [place]. This disclosure is being madepursuant to the Care Everywhere program and may not contain all information available regarding this patient. Last updated 17.[facility] [employer] [employer] [facility] Allergies Active Allergy Reactions Criticality Noted Date Comments Amoxicillin-Pot Clavulanate Skin Reactions,Itching Medium 12/02/2015 Medications * Be aware that medications may not be up to date on this document. Alwaysverify current medications with the patient. insulin lispro (HUMALOG) 100 UNIT/ML vial 7 Active furosemide (LASIX) 20 MG tablet 7 Active HYDROcodone-ac etaminophen (NORCO) 7.5-325 MG tablet 33 tablet 0 7 Active nystatin (MYCOSTATIN) 160934 UNIT/GM ointment Apply 1 tube to affected area BID. 1 tube 0 7 Active gabapentin (NEURONTIN) 300 MG capsule Take 600 mg by mouth TID. 180 capsule 1 7 Active insulin aspart (NOVOLOG) vial Inject 8 Units subcutaneously 3 times daily before meals. 10 mL 0 7 Active insulin glargine (LANTUS) vial Inject 35 Units subcutaneously BID. 10 mL 0 7 Active levothyroxine (SYNTHROID) 100 MCG tablet Take 100 mcg by mouth DAILY. 30 tablet 11 6 Active Probiotic Product (ACIDOPHILUS/G OAT MILK) CAPS Take by mouth DAILY. Active HYDROcodone-ac etaminophen (NORCO) 7.5-325 MG tablet Take 1 tablet by mouth q4h PRN (Pain). Active omeprazole (PRILOSEC) 40 MG capsule Take 40 mg by mouth. Active lisinopril (PRINIVIL; ZESTRIL) 2.5 MG tablet Take 2.5 mg by mouth DAILY. Active buPROPion SR 12hr (WELLBUTRIN-SR ) 100 MG tablet Take 100 mg by mouth DAILY. Active metFORMIN (GLUCOPHAGE) 1000 MG tablet Take 1,000 mg by mouth 2 times daily with morning and evening meal. Active atorvastatin (LIPITOR) 20 MG tablet Take 20 mg by mouth DAILY. Active citalopram (CELEXA) 20 MG tablet Take 20 mg by mouth DAILY. 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 with unspecified severity 02/06/2016 Major depressive disorder, single episode 2015 Resolved Problems Problem Noted Date Diagnosed Date Resolved Date Osteomyelitis 02/06/2016 09/01/2017 Immunizations Immunization Administration Dates Next Due FLU VACCINE TRI IIV3 SPLIT PF IM (FLUVIRIN) 07/2015 PNEUMOCOCCAL PPSV23 12/08/2015 Pneumococcal Pcv13 Conj 01/29/2017 Family History Medical History Relation Name Comments COPD - Chronic Obstructive Pulmonary Disease Father Diabetes Father Elevated Lipids Father Diabetes Paternal Grandmother COPD - Chronic Obstructive Pulmonary Disease Sister Relation Name Status Comments Father Paternal Grandmother Sister Social History Tobacco Use Types Packs/Day Years Used Date Smoking Tobacco: Former Cigarettes Q uit: 07/06/1998 Smokeless Tobacco: Never Alcohol Use Standard Drinks/Week Comments No 0 (1 standard drink = 0.6 oz pur e alcohol) Comments Unknown Sex and Gender Information Value Date Recorded Sex Assigned at Not on file Legal Sex Female 5:23 AM E COMMERCE PROJECT MANAGER Gender Identity Not on file Sexual Orientation Not on file Last Filed Vital Signs Vital Sign Reading Time Taken Comments Blood Pressure 145/78 04/02/2017 12:09 PM E COMMERCE PROJECT MANAGER Pulse 75 04/02/2017 12:09 PM E COMMERCE PROJECT MANAGER Temperature 37.3 C (99.2 F) 04/02/2017 12:09 PM E COMMERCE PROJECT MANAGER Respiratory Rate 20 02/13/2017 10:06 AM E COMMERCE PROJECT MANAGER Oxygen Saturation 97% 02/13/2017 10:06 AM E COMMERCE PROJECT MANAGER Inhaled Oxygen Concentration - - Weight 92.1 kg (203 lb) 04/02/2017 12:09 PM E COMMERCE PROJECT MANAGER Height 167.6 cm (5' 6) 04/02/2017 12:09 PM E COMMERCE PROJECT MANAGER Body Mass Index 32.77 04/02/2017 12:09 PM E COMMERCE PROJECT MANAGER Plan of Treatment Health Maintenance Due Date Last Done Comments BONE DENSITY TESTING 1955 COLOGUARD (AGES 45-75) - COLON CA SCREENING 1955 COLON MONITORING 1955 COLONOSCOPY - COLON CA SCREENING 1956 CT COLONOGRAPHY - COLON CA SCREENING 1955 Colorectal Cancer Screening 1955 FIT - COLON CA SCREENING 1955 FLEX SIG - COLON CA SCREENING 1955 MAMMOGRAM 1955 HEPATITIS C SCREENING 07/08/1974 DTAP/TDAP/TD VACCINES (1 - Tdap) 07/13/1975 ZOSTER VACCINE (1 of 2) 2006 Respiratory Syncytial Virus (RSV) Vaccine Pt: or over 60 yrs (1 - Risk 60-74 years 1-dose series) 2016 DIABETES-FOOT EXAM WITH MONOFILAMENT 06/02/2017 DIABETES-HGB A1C 06/02/2017 01/07/2017, 12/04/2015 DIABETES-SERUM CREATININE 01/13/20182016, 01/12/2017, 01/08/2017, Additional history exists PNEUMOCOCCAL VACCINE 50+ (3 of 3 - PCV20 or PCV21) 01/29/2022 01/29/2017, 12/08/2015 COVID-19 VACCINE ( season) 2023 DEPRESSION SCREENING 03/03/2024 DIABETES - URINE PROTEIN SCREENING 03/03/2024 12/07/2015 INFLUENZA VACCINE (#1) 2024 12/06/2015 HEPATITIS B VACCINE Aged Out No longe r eligible based on patient's age to complete this topic HIB VACCINE Aged Out No longer eligi ble based on patient's age to complete this topic HPV VACCINE Aged Out No longer eligi ble based on patient's age to complete this topic MENINGOCOCCAL (Group B) VACCINE SHARED DECISION-MAKING Aged Out No longer eligible based on patient's age to complete this topic MENINGOCOCCAL GROUPS A/C/Y/W VACCINE Aged Out No longer eligible based on patient's age to complete this topic Procedures Procedure Name Priority Date/Time Associated Diagnosis Comments COMPREHENSIVE METABOLIC PANEL Timed 01/13/2017 6:21 AM E COMMERCE PROJECT MANAGER HEMOGLOBIN A1C Routine 01/07/2017 3:06 PM E COMMERCE PROJECT MANAGER MICROALB/CREAT RATIO URINE RANDOM PANEL Routine 12/07/2015 10:30 AM CDT from Last 3 Months or Most Recently Relevant to Health Maintenance Results * (ABNORMAL) COMPREHENSIVE METABOLIC PANEL (01/13/2017 6:21 AM E COMMERCE PROJECT MANAGER) BUN 11 7 - 26 mg/dL [facility] Creatinine 1.0 0.6 - 1.2 mg/dL [facility] Sodium 143 136 - 145 mmol/L [facility] Potassium 4.1 3.5 - 4.5 mmol/L [facility] Chloride 112(H) 98 - 107 mmol/L [facility] CO2 23 22 - 29 mmol/L [facility] Glucose 68(L) 70 - 115 mg/dL [facility] Calcium 8.8 8.4 - 10.2 mg/dL [facility] Protein Total 5.9(L) 6.0 - 8.3 g/dL [facility] Albumin 2.4(L) 3.4 - 5.0 g/dL [facility] Bilirubin Total 0.2 0.2 - 1.2 mg/dL [facility] Alkaline Phosphatase 104 40 - 150 Units/L [facility] ALT 21 0 - 55 Units/L [facility] AST 26 5 - 34 Units/L [facility] Anion Gap 12 8 - 18 [facility] BUN/Creatinine Ratio 11 7 - 23 [facility] Osmolality Calculated 294 270 - 300 mOsm/kg [facility] Albumin/Globulin Ratio 0.7(L) 1.1 - 2.3 [facility] eGFR 57(L) >60 mL/min/1.7 3 m2 [facility] Blood specimen (specimen) BLOOD SPECIMEN / Unknown 01/13/2017 6:21 AM E COMMERCE PROJECT MANAGER 01/13/2017 6:27 AM E COMMERCE PROJECT MANAGER us Ele Hu MD LAB - CHEMISTRY ORD ERABLES Final Result [facility] [address] [place] [address] * (ABNORMAL) HEMOGLOBIN A1C (01/07/2017 3:06 PM E COMMERCE PROJECT MANAGER) Hemoglobin A1c 13.9(H) 4.4 - 6.3 % [facility] Estimated Average Glucose 352 mg/dL [facility] Comment: HbA1c Interpretation: Treatment target values recommended by ADA and other clinical organizations should be used to evaluate metabolic control in patients. Treatment Target Values: Normal : < 5.7% Pre-diabetes: 5.7-6.4% Diabetes: Equal to or greater than 6.5% Reference: [place] [employer] Standards of Care in Diabetes -2014 In patients 70 years and older consider HbA1c target range of 7.0-7.5% Reference: Diabetes Mellitus in Older People: Position Statement on behalf of the International Association of Gerontology and Geriatrics (IAGG), the Diabetes Working Alliance Party for Older People (EDWPOP), and the International Task Force of Experts in Diabetes. Parish Alonso et al. J [place] [employer]. 2012 Test results diagnostic of diabetes should be repeated for confirmation. The Tosoh G8 assay for the measurement of HbA1c is a National Glycohemoglobin Standardization Program (NGSP)certified method. Results for patients with HbE disease should be interpreted with caution as this hemoglobinopathy has been shown to interfere with the Tosoh G8 assay. Blood specimen (specimen) BLOOD SPECIMEN / Unknown 01/07/2017 3:06 PM E COMMERCE PROJECT MANAGER 01/07/2017 3:18 PM E COMMERCE PROJECT MANAGER Ady Waite MD LAB - CHEMISTRY ORDERABLE S Final Result Performing Organization Address [facility] de Phone Number [address] [phone] * MICROALB/CREAT RATIO URINE RANDOM PANEL (12/07/2015 10:30 AM CDT) Albumin Random Urine <5.0 Not Established mcg/mL [facility] Creatinine Urine 40 Not Established mg/dL [facility] Urine Albumin/Creati nine Ratio <13 <30 mg/g [facility] Albumin/Creati nine Ratio Urine See Comment <30 mg/g [facility] Comment:Unable to calculate the Urine Albumin/Creatinine Ratio due to one or more analyte concentration(s) being outside the measuring limits of the instrument. Urine specimen (specimen) URINE / Unknown 12/07/2015 10:30 AM CDT 12/07/2015 10:33 AM CDT Bin Garcia LAB - URINE CHEMISTRY ORDERA BLES Final Result Performing Organization Address [facility] [address] de Phone Number [address] [phone] from Last 3 Months or Most Recently Relevant to Health Maintenance Insurance MEDICAID - OUT OF STATE [facility] MANAGED MEDICARE ADV Care Teams Gas Line Installer Supervisor Relationship Specialty Start Date End Date Gene Hughes MD [address] [place] [address] PCP - General 12/01/15
--- OUTSIDE RECORDS SUMMARY | 2024-09-29 00:13 | XMS_ITS ---
Author Organization [facility] Address [address] [place] [phone] Care Team Providers Care Stage Technician Name Role Phone Yvonne James Primary Care Provider [phone] REASON FOR VISIT needs new pump reprogrammed Medications Medication SIG (Take, Route, Frequency, Duration) Notes Start Date End Date Status buPROPion HCl 100 MG Tablet 1 tab(s) orally 2 times a day Active Levothyroxine Sodium 112 MCG Tablet TAKE 1 TABLET BY MOUTH ONCE DAILY ONE HOUR BEFORE EATING; Duration: 30 Active Fenofibrate 145 MG Tablet TAKE 1 TABLET BY MOUTH ONCE DAILY AT BEDTIME; Duration: 90 Active Ozempic (1 MG/DOSE) 4 MG/3ML Solution Pen-injector INJECT 1MG ONCE A WEEK; Duration: 84 Active Farxiga 5 MG Tablet 1 tab(s) orally once a day; Duration: 90 days 11/13/2023 Active Omeprazole 40 MG Capsule Delayed Release 1 cap(s) orally once a day Active Gabapentin 300 MG Capsule 1 capsule Orally three times daily; Duration: 90 days 02/12/2024 Active Ibuprofen 800 MG Tablet 1 tab(s) orally 3 times a day Active HumaLOG 100 UNIT/ML Solution as directed subcutaneously 11/13/2023 Active GVOKE HYPOPEN TWO PACK 1 MG/0.2 ML SOLUTION INJECT 1 MG SUBCUTANEOUSLY ONCE NEEDED FOR SUGARS UNDER 50 MG/DL; Duration: 1 DAYS *Please review for potential replacement for e-prescription and drug interaction check* *Reorder from [employer]ell[employer] Light for eRx and Interaction Alerts* 01/05/2024 Active Rosuvastatin Calcium 20 MG Tablet 1 tab(s) orally once a day Active Lisinopril 20 MG Tablet ; Duration: 90 Days Active Dexcom G7 Sensor - Miscellaneous change sensor every 10 days; Duration: 90 days 03/05/2024 Active Ozempic (0.25 or 0.5 MG/DOSE) 2 MG/3ML Solution Pen-injector INJECT 0.5MG SUBCUTANEOUSLY ONCE WEEKLY; Duration: 84 Days Active Encounters Encounter Location Date Provider Diagnosis AMMO Dr. James [address] [place] [phone] 08/17/2024 Yvonne James Plan Of Treatment Next Appt Details Provider Name:Yvonnebrianna James, 01:20:00 PM, [address] [place] [address], [phone], History and Physical Notes * HPI (History of Present Illness) Category Sub-Category Detail Notes Category Not es History of Present Illness 69 yo female comes in for omnipod / reset on her new omnipod 5 pump/transfer from [employer]. She has hypercortisolism. At last visit we discussed recorlev and had patient sign consent to start therapy. At last visit in July we had patient Modify basal settings as follows: 2.5 u/hr at bedtime 2.4 u/hr during daytime continue 1:5 carb ratio Progress Notes * Amairani SAHUElhamB:1955 ( 69 yo F)Acc No.[id number]:08/17/2024 Progress Notes Patient: Mikala Olson Provider: Tory James MD :1955 A ge:69 Y S ex:Female Date:08/17/2024 Address:[address] [place] [address] Subjective: * Chief Complaints: * N eeds new pump reprogrammed * HPI: H istory of Present Illness: 69 yo female comes in for omnipod / reset on her new omnipod 5 pump/transfer from [employer]. S he has hypercortisolism. At last visit we discussed recorlev and had patient sign consent to start therapy. At last visit in July we had patient Modify basal settings as follows: 2.5 u/hr at bedtime 2.4 u/hr during daytime continue 1:5 carb ratio. * Medications: T akingDexcom G7 Sensor - Miscellaneous change sensor every 10 days Rosuvastatin Calcium 20 MG Tablet 1 tab(s) orally once a day Lisinopril 20 MG Tablet Ozempic (0.25 or 0.5 MG/DOSE) 2 MG/3ML Solution Pen-injector INJECT 0.5MG SUBCUTANEOUSLY ONCE WEEKLY HumaLOG 100 UNIT/ML Solution as directed subcutaneously GVOKE HYPOPEN TWO PACK 1 MG/0.2 ML SOLUTION INJECT 1 MG SUBCUTANEOUSLY ONCE NEEDED FOR SUGARS UNDER 50 MG/DL , Notes to Pharmacist: *Please review for potential replacement for e-prescription and drug interaction check* *Reorder from [employer] for eRx and Interaction Alerts*Gabapentin 300 MG Capsule 1 capsule Orally three times daily Ibuprofen 800 MG Tablet 1 tab(s) orally 3 times a day Omeprazole 40 MG Capsule Delayed Release 1 cap(s) orally once a day buPROPion HCl 100 MG Tablet 1 tab(s) orally 2 times a day Ozempic (1 MG/DOSE) 4 MG/3ML Solution Pen-injector INJECT 1MG ONCE A WEEK Farxiga 5 MG Tablet 1 tab(s) orally once a day Levothyroxine Sodium 112 MCG Tablet TAKE 1 TABLET BY MOUTH ONCE DAILY ONE HOUR BEFORE EATING Fenofibrate 145 MG Tablet TAKE 1 TABLET BY MOUTH ONCE DAILY AT BEDTIME Taking Dexcom G7 Sensor - Miscellaneous change sensor every 10 days Taking Rosuvastatin Calcium 20 MG Tablet 1 tab(s) orally once a day Taking Lisinopril 20 MG Tablet Taking Ozempic (0.25 or 0.5 MG/DOSE) 2 MG/3ML Solution Pen-injector INJECT 0.5MG SUBCUTANEOUSLY ONCE WEEKLY Taking HumaLOG 100 UNIT/ML Solution as directed subcutaneously Taking GVOKE HYPOPEN TWO PACK 1 MG/0.2 ML SOLUTION INJECT 1 MG SUBCUTANEOUSLY ONCE NEEDED FOR SUGARS UNDER 50 MG/DL , Notes to Pharmacist: *Please review for potential replacement for e-prescription and drug interaction check* *Reorder from [employer] for eRx and Interaction Alerts*Taking Gabapentin 300 MG Capsule 1 capsule Orally three times daily Taking Ibuprofen 800 MG Tablet 1 tab(s) orally 3 times a day Taking Omeprazole 40 MG Capsule Delayed Release 1 cap(s) orally once a day Taking buPROPion HCl 100 MG Tablet 1 tab(s) orally 2 times a day Taking Ozempic (1 MG/DOSE) 4 MG/3ML Solution Pen-injector INJECT 1MG ONCE A WEEK Taking Farxiga 5 MG Tablet 1 tab(s) orally once a day Taking Levothyroxine Sodium 112 MCG Tablet TAKE 1 TABLET BY MOUTH ONCE DAILY ONE HOUR BEFORE EATING Taking Fenofibrate 145 MG Tablet TAKE 1 TABLET BY MOUTH ONCE DAILY AT BEDTIME Billing Information: * Procedure Codes: * Electronic signature of Cosmo James MD on 09/29/2024 at 12:12 AM CDT Sign off status: Pending * Provider: Tory James MD Date: 08/17/2024 Generated for Lazarus chase/Saturnino/Jorge A on: 09/29/2024 12:12 AM CDT
--- OUTSIDE RECORDS SUMMARY | 2024-09-29 00:13 | XMS_ITS | Patient Health Record ---
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 Name Role Phone Yvonne James Primary Care Provider Meri Puentes Unavailable [phone] Migration, Provider Unavailable Unavailable Allergies Allergen (clinical drug ingredient) Drug/Non Drug Allergy documented on EMR Reaction Allergy Type Onset Date Status amoxicillin / clavulanate Augmentin hives Drug Allergy Active DORVASET (uncoded) Unknown Allergy A ctive Results Component Value Reference Range Notes COMPREHENSIVE METABOLIC PANE L Reviewed date:10/13/2023 12:54:07 PM Interpretation: Performing Lab:[facility], [address], [place], [address] Coty Wang MD Notes/Report: FASTING:YES FASTING: YES PROTEIN, TOTAL AND PROTEIN E LECTROPHORESIS W/ REFL KOTA Reviewed date:10/22/2023 03:36:20 PM Interpretation: Performing Lab:[facility], [address], [place], [address] Coty Wang MD Notes/Report: FASTING:YES FASTING: YES PROTEIN, TOTAL 6.2 6.1-8.1 g/dL ALBUMIN 3.8 3.8-4.8 g/dL ALPHA 1 GLOBULIN 0.2 0.2-0.3 g/dL ALPHA 2 GLOBULIN 0.7 0.5-0.9 g/dL BETA 1 GLOBULIN 0.4 0.4-0.6 g/dL BETA 2 GLOBULIN 0.3 0.2-0.5 g/dL GAMMA GLOBULIN 0.7 0.8-1.7 g/dL INTERPRETATION Hypogammaglobulinemia may be seen in early or evolving lymphoproliferative disorders, acquired or congenital immune deficiencies, immunosuppressive therapy and light chain disease. Consider urine protein electrophoresis, urine immunofixation and/or free light chains if clinically indicated. T3, FREE Reviewed date:10/13/2023 12:54:07 PM Interpretation: Performing Lab:[facility], [address] [place], [address] Coty Wang MD Notes/Report: FASTING:YES FASTING: YES HEMOGLOBIN A1c Reviewed date:10/22/2023 03:37:36 PM Interpretation: Performing [facility], [address], [place], [address] Coty Wang Notes/Report: FASTING:YES FASTING: YES CBC (INCLUDES DIFF/PLT) Reviewed date:10/13/2023 08:40:13 PM Interpretation: Performing Lab:[facility], [address], [place], [address] Coty Wang MD Notes/Report: FASTING:YES FASTING: YES MICROALBUMIN, RANDOM URINE ( W/CREATININE) Reviewed date:10/13/2023 12:54:07 PM Interpretation: Performing Lab:[facility], [address] [place], [address] Coty Wang MD Notes/Report: FASTING:YES FASTING: YES IRON AND TOTAL IRON BINDING CAPACITY Reviewed date:10/13/2023 12:54:07 PM Interpretation: Performing Lab:[facility], [address] [place], [address] Coty Wang MD Notes/Report: FASTING:YES FASTING: YES LIPID PANEL Reviewed date:10/27/2023 08:57:49 AM Interpretation: Performing Lab:[facility], [address] [place], [address] Coty Wang MD Notes/Report: FASTING:YES FASTING: YES PROTEIN, TOTAL AND PROTEIN E LECTROPHORESIS, RANDOM URINE Reviewed date:10/13/2023 12:54:07 PM Interpretation: Performing Lab:[facility], [address] [place], [address] Coty Wang MD Notes/Report: FASTING:YES FASTING: YES CREATININE, RANDOM URINE 102 20-275 mg/dL PROTEIN/CREATININE RATIO 157 24-184 mg/g crea t PROTEIN/CREATININE RATIO 0.157 0.024-0 .184 mg/mg creat PROTEIN, TOTAL, RANDOM UR 16 5-24 mg/dL ALBUMIN 100 [id number] 0 [id number]-4-[id number] 0 BETA GLOBULINS 0 GAMMA GLOBULINS 0 INTERPRETATION Agarose electrophoresis of urine reveals albumin. No abnormal protein is observed. The supplier of the testing reagents for this assay has changed. Detection of small monoclonal proteins may vary by test system. Urine immunofixation is suggested if clinically indicated and not already ordered. T4, FREE Reviewed date:10/13/2023 12:54:07 PM Interpretation: Performing Lab:[facility], [address], [place], [address] Coty Wang MD Notes/Report: FASTING:YES FASTING: YES TSH Reviewed date:10/13/2023 12:54:07 PM Interpretation: Performing Lab:[facility], [address], [place], [address] Coty Wang MD Notes/Report: FASTING:YES FASTING: YES COMPREHENSIVE METABOLIC PANE L Reviewed date:02/12/2024 08:07:25 AM Interpretation: Performing Lab:[facility], [address], [place], [address] Coty Wang MD Notes/Report: FASTING:YES FASTING: YES T3, FREE Reviewed date:02/12/2024 08:07:25 AM Interpretation: Performing Lab:[facility], [address], [place], [address] Coty Wang MD Notes/Report: FASTING:YES FASTING: YES HEMOGLOBIN A1c Reviewed date:02/12/2024 08:07:25 AM Interpretation: Performing Lab:[facility], [address] , [place], [address] Coty Wang Notes/Report: FASTING:YES FASTING: YES CBC (INCLUDES DIFF/PLT) Reviewed date:02/12/2024 08:07:26 AM Interpretation: Performing Lab:[facility], [address], [place], [place], [address] Coty Wang MD Notes/Report: FASTING:YES FASTING: YES MICROALBUMIN, RANDOM URINE ( W/CREATININE) Reviewed date:02/12/2024 08:07:26 AM Interpretation: Performing Lab:[facility], [address], [place], [address] Coty Wang MD Notes/Report: FASTING:YES FASTING: YES LIPID PANEL Reviewed date:02/12/2024 08:07:26 AM Interpretation: Performing Lab:[facility], [address], [place], [address] Coty Wang MD Notes/Report: FASTING:YES FASTING: YES T4, FREE Reviewed date:02/12/2024 08:07:26 AM Interpretation: Performing Lab:[facility], [address], [place], [place], [address] Coty Wang MD Notes/Report: FASTING:YES FASTING: YES TSH Reviewed date:02/12/2024 08:07:26 AM Interpretation: Performing Lab:[facility], [address], [place], [address] Coty Wang MD Notes/Report: FASTING:YES FASTING: YES DEXAMETHASONE (Not yet revie wed by provider) Interpretation: Performing Lab:[facility], [facility],, [address] [place], [address] Cassi Belcher MD,PhD,JULITA Notes/Report: FASTING:YES FASTING: YES CORTISOL, TOTAL (Not yet rev iewed by provider) Interpretation: Performing Lab:[facility], [address], [place], [address] Coty Wang MD Notes/Report: FASTING:YES FASTING: YES Reason For Referral Reason Nephrology Consult Diagnosis 1 Chronic kidney disea se, unspecified (N18.9) Diagnosis 2 Abnormal results of kidney function studies (R94.4) Referral Organization [facility] - Yvonne James Referring Provider First Name Yvonne Referring Provider Last Name Jacob Referring Provider Speciality Internal M edicine Referral Priority Routine Medications Medication SIG (Take, Route, Frequency, Duration) Notes Start Date End Date Status Ibuprofen 800 MG 1 tab(s) orally 3 times a day Unknown Tresiba FlexTouch 200 UNIT/ML INJECT 80 UNITS SUBCUTANEOUSLY ONCE DAILY AT BEDTIME for 68 Days Unknown Gabapentin 600 MG 1 tab(s) orally 3 times a day Unknown HumaLOG 100 UNIT/ML as directed subcutaneously 11/13/2023 Unknown buPROPion HCl 100 MG 1 tab(s) orally 2 times a day Unknown Omeprazole 40 MG 1 cap(s) orally once a day Unknown Vascepa 1 GM 2 cap(s) orally 2 times a day for 90 days 11/13/2023 Unknown Lisinopril 20 MG for 90 Days U nknown Rosuvastatin Calcium 20 MG 1 tab(s) orally once a day Unknown Ozempic (1 MG/DOSE) 4 MG/3ML inject 1 mg subcutaneously once a week for 90 days 01/05/2024 Unknown Fenofibrate 145 MG 1 tab(s) orally once a day for 90 days 09/17/2023 Unknown dexAMETHasone 1 MG 1 tab(s) orally at 10 pm night before 8 am cortisol for 1 days 01/05/2024 Unknown Ozempic (1 MG/DOSE) 4 MG/3ML as directed subcutaneously once a week for 90 days 09/16/2023 Unknown Gabapentin 300 MG 1 capsule Orally three times daily for 90 days 02/12/2024 Unknown Dexcom G7 Sensor - change sensor every 10 days for 90 days 03/05/2024 Active GVOKE HYPOPEN TWO PACK 1 MG/0.2 ML INJECT 1 MG SUBCUTANEOUSLY ONCE NEEDED FOR SUGARS UNDER 50 MG/DL for 1 DAYS *Please review for potential replacement for e-prescription and drug interaction check* 01/05/2024 Unknown Levothyroxine Sodium 112 MCG 1 tab(s) orally once a day for 30 days 09/17/2023 Unknown NovoLOG *Please review and pick correct strength-formulat ion from [employer] options. If intended option is not shown, discontinue and re-order from Quick Search* Unknown Ozempic (0.25 or 0.5 MG/DOSE) 2 MG/3ML INJECT 0.5MG SUBCUTANEOUSLY ONCE WEEKLY for 84 Days Unknown Farxiga 5 MG 1 tab(s) orally once a day for 90 days 11/13/2023 Unknown Problems Problem Type SNOMED Code ICD Code Onset Dates Problem Status W/U Status Risk Notes Problem Hyperglycemia due to type 2 diabetes mellitus (285104524868437) Type 2 diabetes mellitus with hyperglycemia (E11.65) Active confirmed Problem Essential hypertension (31738074) Essential (primary) hypertension (I10) Active confirmed Problem Hypothyroidism (84727441) Hypothyroidism, unspecified (E03.9) Active confirmed Problem Pure hyperglyceridemia (704484562) Pure hyperglyceridemia (E78.1) Active confirmed Problem Obesity (340556945) Obesity, unspecified (E66.9) Active confirmed Problem Diabetic peripheral neuropathy associated with type 2 diabetes mellitus (9804211325886) Type 2 diabetes mellitus with diabetic neuropathy, unspecified (E11.40) Active confirmed Problem Mononeuropathy of lower limb (084630839) 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) Active confirmed Problem Chronic kidney disease (715799610) Chronic kidney disease, unspecified (N18.9) Active confirmed Problem Long-term current use of insulin (139266359) correction (current) use of insulin (Z79.4) Active confirmed Problem Amputated below knee (703007723) Acquired absence of right leg below knee (Z89.511) Active confirmed Vital Signs Heart Rate 86 /min 02/16/2024 SPO2: 97% Blood pressure diastolic 68 mm Hg 02/16/2024 SPO 2: 97% Height 65 in 02/16/2024 SPO2: 97% Blood pressure systolic 134 mm Hg 02/16/2024 SPO2 : 97% Weight 193.4 lbs 02/16/2024 SPO2: 97% BMI 32.18 kg/m2 02/16/2024 SPO2: 97% Encounters Encounter Location Date Provider Diagnosis [facility] [address] [place] [address] 11/20/2023 Meri Puentes Type 2 diabetes abdias itus with diabetic neuropathy, unspecified E11.40 ; Type 2 diabetes mellitus with hyperglycemia E11.65 ; Essential (primary) hypertension I10 ; Acquired absence of right leg below knee Z89.511 ; Pure hyperglyceridemia E78.1 and Chronic kidney disease, unspecified N18.9 [facility] [place] [address] [place] [address] 11/13/2023 Meri Puentes Pure hyperglyceridem ia E78.1 ; Abnormal results of kidney function studies R94.4 ; Anemia, unspecified D64.9 ; Type 2 diabetes mellitus with hyperglycemia E11.65 ; Hypo-osmolality and hyponatremia E87.1 ; Hyperglycemia, unspecified R73.9 ; Chronic kidney disease, unspecified N18.9 ; Hypothyroidism, unspecified E03.9 and Pain in left hand M79.642 [facility] [address] [address] [place] [address] 11/27/2023 Meri Puentes Type 2 diabetes abdias itus with diabetic neuropathy, unspecified E11.40 ; Pure hyperglyceridemia E78.1 ; Chronic kidney disease, unspecified N18.9 and correction (current) use of insulin Z79.4 [facility] [address] [place] [address] 12/04/2023 Meri Puentes Type 2 diabetes abdias itus with diabetic neuropathy, unspecified E11.40 ; Pure hyperglyceridemia E78.1 ; ferry terminal agent (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) use of insulin Z79.4 and Obesity, unspecified E66.9 [facility] Yvonne James [address] [place] [address] 01/05/2024 Yvonne James Type 2 diabetes abdias itus with diabetic neuropathy, unspecified E11.40 ; Hypothyroidism, unspecified E03.9 ; Chronic kidney disease, unspecified N18.9 and Obesity, unspecified E66.9 [facility] Yvonne James [address] [place] [address] 04/19/2024 Yvonne James [facility] Yvonne James [address] [place] [address] 02/16/2024 Yvonne James Type 2 diabetes abdias itus with diabetic neuropathy, unspecified E11.40 ; Chronic kidney disease, unspecified N18.9 ; Obesity, unspecified E66.9 and Dietary counseling and surveillance Z71.3 [facility] [address] [place] [address] 01/17/2024 Provider Migration Type 2 diabetes mellitus with diabetic neuropathy, unspecified E11.40 and Obesity, unspecified E66.9 [facility] [address] [place] [address] 10/09/2023 Yvonne [facility] - Yvonne James [address] [place] [address] 10/13/2023 Yvonne [facility] - vYonne James [address] [place] [address] 10/20/2023 Yvonne James [facility] [address] [place] [address] 10/27/2023 Yvonne [facility] - Yvonne James [address] [place] [address] 10/27/2023 Yvonne [facility] - Yvonne James [address] [place] [address] 12/24/2023 Yvonne James [facility] [address] [place] [address] 12/25/2023 Yvonne James Type 2 diabetes abdias itus with diabetic neuropathy, unspecified E11.40 [facility] [address] [place] [address] 12/26/2023 Yvonne [facility] - Yvonne James [address] [place] [address] 01/12/2024 Yvonne [facility] - Yvonne James [address] [place] [address] 02/09/2024 Yvonne James Unspecified mononeuropathy of left lower limb G57.92 [facility] - Yvonne James [address] [place] [address] 02/16/2024 Yvonne James [facility] [address] [place] [address] 03/05/2024 Yvonne James Type 2 diabetes abdias itus with diabetic neuropathy, unspecified E11.40 [facility] [employer] - Yvonne Jacob [address] [place] [address] 03/30/2024 Yvonne James Assessments Encounter Date Diagnosis (ICD Code) Assessment Notes Treatment Notes Treatment Clinical Notes Section Notes 12/04/2023 Type 2 diabetes mellitus with diabetic neuropathy, unspecified (ICD-10 - E11.40) 11/20/2023 Type 2 diabetes mellitus with hyperglycemia (ICD-10 - E11.65) -Pt educated that she will be stopping her manual insulin injections (both humalog and treseiba) d/t her insulin pump placed today. I will see her in 7-9 days for f/u. She is to call us or [employer] help # if she has any questions. -She was educated on what to do in the event of hypoglycemia - she has GVoke pens that was prescribed by MD James in [place]. 11/20/2023 Type 2 diabetes mellitus with diabetic neuropathy, unspecified (ICD-10 - E11.40) 11/13/2023 Pure hyperglyceridemia (ICD-10 - E78.1) -Discontinue fenofibrate d/t renal impairment. -Tryglycerides elevated. Pt aware that this is related to how her diet reflects. -Inititate vascepa 1g BID. 11/13/2023 Abnormal results of kidney function studies (ICD-10 - R94.4) 11/27/2023 Pure hyperglyceridemia (ICD-10 - E78.1) 11/27/2023 Type 2 diabetes mellitus with diabetic neuropathy, unspecified (ICD-10 - E11.40) 1. Type 2 Diabetes Mellitus and Insulin Pump - Reports of improved blood sugar control, with occasional spikes not exceeding 250 mg/dL. - Average blood sugar recorded at 167 mg/dL, ranging from 111-362 mg/dL. - Currently receiving 54.3 units of insulin daily, with 2.3 boluses per day. Plan: Adjusted insulin pump settings as detailed: increase to 1.9 units/hr from 12 p.m. to 12 a.m.; adjustments to an increase to 2.2 units/hr also made from 12 a.m. to 5 p.m., and return to 1.9 units/hr from 6 p.m. to midnight. Instruct patient to bolus for high blood sugar levels, regardless of meal intake. Schedule a follow-up in one week with Dr. James for reassessment and further adjustments if necessary. 2. Weight Gain - Patient has experienced an increase in weight, from 186 to 192 lbs within one week. Plan: Monitor weight fluctuations and discuss the possibility of insulin-related weight gain. Reevaluate at the subsequent visit. 3. Nephrology Follow-up - Blood work and an ultrasound are scheduled, with a follow-up appointment set for December 31. Plan: Continue with scheduled monitoring and follow-up with nephrology as planned. 4. Fenofibrate - Patient has expressed concerns regarding thinning hair. Plan: Maintain current fenofibrate regimen as recommended by the newspaper manager. Monitor for hair thinning and address potential side effects at the upcoming visit. 5. Insulin Pump Site Management - No reported issues with the pump site; patient has acquired an overpatch from [employer] Plan: Persist with the current site management strategy and keep an eye out for any complications. 6. Follow-up Appointments Plan: Arrange a follow-up appointment with Katlyn for next with myself or with Dr. James in two weeks, based on the patient's preference. Encourage the patient to reach out if any concerns emerge prior to the next scheduled appointment. 12/04/2023 Pure hyperglyceridemia (ICD-10 - E78.1) 01/05/2024 Type 2 diabetes mellitus with diabetic neuropathy, unspecified (ICD-10 - E11.40) 02/16/2024 Type 2 diabetes mellitus with diabetic neuropathy, unspecified (ICD-10 - E11.40) 01/17/2024 Type 2 diabetes mellitus with diabetic neuropathy, unspecified (ICD-10 - E11.40) 12/25/2023 Type 2 diabetes mellitus with diabetic neuropathy, unspecified (ICD-10 - E11.40) 02/09/2024 Unspecified mononeuropathy of left lower limb (ICD-10 - G57.92) 03/05/2024 Type 2 diabetes mellitus with diabetic neuropathy, unspecified (ICD-10 - E11.40) 11/20/2023 Essential (primary) hypertension (ICD-10 - I10) 11/13/2023 Anemia, unspecified (ICD-10 - D64.9) -Consider referral to hematology given no causation for anemia. Pt aware. Will discuss if repeat CBC remains with anemia. 11/27/2023 Chronic kidney disease, unspecified (ICD-10 - N18.9) 12/04/2023 correction (current) use of insulin (ICD-10 - Z79.4) 01/05/2024 Hypothyroidism, unspecified (ICD-10 - E03.9) 02/16/2024 Chronic kidney disease, unspecified (ICD-10 - N18.9) 11/20/2023 Acquired absence of right leg below knee (ICD-10 - Z89.511) 11/13/2023 Type 2 diabetes mellitus with hyperglycemia (ICD-10 - E11.65) -Start farxiga for renal protection. Pt states she has a bottle of something like this at her house that she was worried about hair loss. I advised her to call me and let me know if it is the same medication and the benefits of this to help control her hyperglycemia and poorly controlled diabetes. 11/27/2023 correction (current) use of insulin (ICD-10 - Z79.4) 12/04/2023 Obesity, unspecified (ICD-10 - E66.9) 01/05/2024 Chronic kidney disease, unspecified (ICD-10 - N18.9) 02/16/2024 Obesity, unspecified (ICD-10 - E66.9) 11/20/2023 Pure hyperglyceridemia (ICD-10 - E78.1) 11/13/2023 Hypo-osmolality and hyponatremia (ICD-10 - E87.1) 01/05/2024 Obesity, unspecified (ICD-10 - E66.9) 02/16/2024 Dietary counseling and surveillance (ICD-10 - Z71.3) 01/17/2024 Obesity, unspecified (ICD-10 - E66.9) 11/20/2023 Chronic kidney disease, unspecified (ICD-10 - N18.9) -Pt to f/u with [facility] [employer] today at 3pm after our appt. She will let us know what treatment develops with specialist. I asked her to ask [employer] input on her fenofibrate d/t renal impairment. She reports she is unable to tolerate Vesepa d/t diarrhea. 11/13/2023 Hyperglycemia, unspecified (ICD-10 - R73.9) -Will re-check labs in 6 weeks p insulin pump start. Pt aware. 11/13/2023 Chronic kidney disease, unspecified (ICD-10 - N18.9) 11/13/2023 Hypothyroidism, unspecified (ICD-10 - E03.9) 11/13/2023 Pain in left hand (ICD-10 - M79.642) 11/13/2023 Other 1. Kidney Function and Nephrology Referral - Assessment: Patient has significantly reduced eGFR, previously recorded at 11 and 18, with a recent improvement to 44. Despite this, kidney function remains a concern. - Plan: Ensure successful referral to nephrology for further evaluation and management. Office staff will resend necessary referral documentation and recent labs to [facility]. Follow-up on referral status to ensure patient appointment is scheduled. 2. Diabetes Management and Insulin Pump Training - Assessment: Patient's diabetes management is suboptimal with an A1c of 10.4. Current regimen includes Tresiba and Lispro, with plans to transition to insulin pump therapy for better glucose control. - Plan: Schedule insulin pump training session for next with Dr. James present. Patient instructed to bring insulin Lispro for filling the pods during training. Continue current insulin regimen until pump initiation. 3. Hypertriglyceridemia and Medication Adjustment - Assessment: Patient has high triglycerides, currently managed with fenofibrate. Given the renal concerns, fenofibrate may not be ideal. - Plan: Discontinue fenofibrate and initiate icosapent ethyl (Vascepa) to manage hypertriglyceridemia with less renal impact. Await pharmacist confirmation for this change. 4. Anemia Investigation - Assessment: Patient has anemia with a hemoglobin level of 11.1, not attributed to iron deficiency. The cause is unclear but may be related to chronic disease or kidney function. - Plan: Monitor patient's anemia status and consider further investigation if symptoms of fatigue worsen or do not improve with current interventions. Recheck labs in six weeks post-initiation of insulin pump therapy. 5. Potential Medication Addition for Kidney Protection - Assessment: Discussion about the potential addition of Farxiga for kidney protection, though patient has concerns about side effects. - Plan: Discuss the benefits and risks of Farxiga further with the patient and consider initiating at a follow-up visit if deemed appropriate. 6. Orthopedic Concerns - Assessment: Patient reports pain and locking in the left finger, suggestive of trigger finger. - Plan: Advise patient to consult with an orthopedist if symptoms persist or worsen, to evaluate the need for possible interventions such as joint injections. 7. Follow-up - Plan: Patient scheduled to return next week for insulin pump training. Ensure all preparations, including insulin availability and pump setup, are addressed prior to the visit. Re-evaluate diabetes management, kidney function, and other health concerns at subsequent visits, adjusting treatment plans as necessary. 11/27/2023 Other Patient case di scussed with Meri Puentes NP and I agree with plan and recommendations. 12/04/2023 Other 1. Type 1 Diabetes Mellitus - Blood glucose levels show improvement but remain high in the late evening and overnight. - No episodes of hypoglycemia reported according to [employer] - A1c level in October was 10.4%, with a goal to reduce it closer to 7%. Plan: Adjust glucose goal to 130 with correction for levels above 130. Modified insulin pump settings as noted in her HPI. 2. Diabetic Neuropathy - No reported worsening of neuropathy symptoms. Plan: Continue to monitor symptoms and manage blood glucose levels to prevent further complications. 3. Nephrology - History of kidney function issues with a nephrology appointment scheduled for December 31. Plan: Complete blood work in the first week of December. Continue to monitor kidney function and manage blood glucose levels to prevent further complications. 4. Nutrition and Carb Counting - Improvement needed in carb counting for better insulin dosing accuracy. Plan: Recommend downloading and using a carb manufacturing operations manager [employer] for assistance with dosing. Continue patient education on accurate carb counting and mealtime bolusing. 5. DST -Considering her comorbidities, she may benefit from a DST if her nocturnal hyperglycemia continues despite pump changes. 01/05/2024 Other Assessment and Plan: 1. Type 2 Diabetes Mellitus/insulin requiring due to CKD- Patient using Omnipod 6 and Dexcom G7 sensor, but devices are not communicating, leading to manual mode usage.- Plan: Order Omnipod 5 and G7 Intro Kit for the patient to ensure proper communication between devices. Instruct the patient to bring their insulin, Dexcom sensor, and the box with the serial number to the next appointment for proper setup. 2. Suboptimal glycemic control- Patient taking approximately 80 units of insulin per day.- Plan: Monitor blood glucose levels and adjust insulin regimen as needed once the automated system is set up. 3. Adrenal function evaluation- Dexamethasone test not yet ordered.- Plan: Order dexamethasone test to assess cortisol levels. Instruct the patient to take a 1 mg dexamethasone tablet at 10 p.m. the night before their 8 a.m. cortisol test. 4. Ozempic dosage adjustment- Patient's Ozempic dose increased to 1 mg, but only has 0.5 mg doses available.- Plan: Prescribe additional 1 mg Ozempic doses. Instruct the patient to take two 0.5 mg doses to make 1 mg until the new prescription is available. 5. Follow-up appointment- Plan: Schedule a follow-up appointment for the patient on the , or sooner if the Dexcom or Omnipod pods become available at [facility]. Provide a copy of the patient's recent labs for their kidney doctor. 6. Patient education- Plan: Educate the patient on the proper use of their new Omnipod 5 and G7 sensor system during the next appointment to ensure optimal glycemic control. Spent 25 minutes preparing to see the patient (ex review of tests/chart), obtaining and / or reviewing separately obtained history, performing a medically appropriate examination and/or evaluation, counseling and educating the patient/family/caregiv er, ordering medications, tests, or procedures, referring and communicating with other health personal caregiver, documenting clinical information in the electronic or other health record, independently interpreting results and communicating results to the patient/family/caregiv er and care coordinating patient plan. Patient alert and oriented x 4 and aware of discussion noted above and in agreeance to plan in management of uncontrolled type 2 dM with high insulin requirements, screening for hypercortisolism and fatigue/hypothyroidism . 02/16/2024 Other Assessment and Plan: 1. Type 1 Diabetes Mellitus- The patient is currently using an insulin pump and Dexcom G7 sensor for glucose monitoring and insulin delivery. The patient's glucose levels are not well-controlled, with only 33% in range when reviewing CGM/glooko review. The goal is to achieve at least 70% in range.- Plan: Switch to automated mode on the insulin pump to improve glucose control. Increase basal insulin from 12 AM to 12 PM to 2.2 units and during the day to 2.3 units. Increase correction factor to 35 to drop more per unit. Monitor glucose levels closely and adjust insulin doses as needed. The patient should continue to bolus for meals using the custom food list feature on the pump. 2. Hypoglycemia- The patient reported one episode of nocturnal hypoglycemia (69 mg/dL) at 2 AM.- Plan: Ensure the smart pump is set to not allow glucose levels to drop below 60 mg/dL. The patient should keep a glucagon pen, juice, and caramels on hand for emergency treatment of low blood sugar. She has Gvoke pen at home. 3. Cortisol evaluation- The patient has not yet completed the dexamethasone suppression test due to scheduling issues and side effects from the medication.- Plan: Encourage the patient to complete the dexamethasone suppression test to evaluate cortisol levels, as high cortisol levels may be contributing to the patient's insulin resistance. The patient should follow the instructions provided with the lab order and report any issues or concerns. 4. Insulin pump and sensor management- The patient has experienced some difficulties with the insulin pump and sensor communication and battery life.- Plan: Ensure proper setup and pairing of the insulin pump and Dexcom G7 sensor. Instruct the patient to charge the pump for at least 15-20 minutes daily to maintain battery life. The patient should change the sensor every 10 days and the pod every 3 days, with the sensor being changed first if both are due on the same day. Follow-up:- Schedule a follow-up appointment in a few months to assess the patient's glucose control, insulin adjustments, and the results of the dexamethasone suppression test. The patient should contact the clinic if any issues or concerns arise in the meantime. Spent 15 minutes preventative counseling patient on dietary recommendations and changes in setting of hyperglycemia and concern for hypercortisolism- need to restrict refined sugars and processed foods and incorporate up to 150 minutes of moderate level activity weekly. Need to get DST to screen for cushings syndrome. Spent 25 minutes preparing to see the patient (ex review of tests/chart), obtaining and / or reviewing separately obtained history, performing a medically appropriate examination and/or evaluation, counseling and educating the patient/family/caregiv er, ordering medications, tests, or procedures, referring and communicating with other health personal caregiver, documenting clinical information in the electronic or other health record, independently interpreting results and communicating results to the patient/family/caregiv er and care coordinating patient plan. Patient alert and oriented x 4 and aware of discussion noted above and in agreeance to plan in management of insulin treated type 2 dM with CKD, on automated mode with omnipod 5 pump and dexcom G7 sensor. Plan Of Treatment Pending Test Test Name Order Date - RENAL 09/16/2023 DEXAMETHASONE 04/14/2024 CORTISOL, TOTAL 04/14/2024 Insurance Providers Payer Name Payer Address Payer Phone Subscriber Number Group Number Insured Name Patient Relationship to Insured Coverage Start Date Coverage End Date [facility] [address] [place] [phone] [id number] Mikala Sahu Self - patient is the insured Medical (General) History Medical History History ICD Code Type 2 diabetes mellitus with diabetic n europathy, unspecified E11.40 Hypothyroidism, unspecified E03.9 Acquired absence of right leg below knee Z89.511 Essential (primary) hypertension I10 Hospitalization History Reason Date(Month/Year) [facility] 1975
--- OUTSIDE RECORDS SUMMARY | 2024-09-29 00:13 | XMS_ITS | Data Portability ---
Author Organization [place] - [facility] [employer], Main Office Address [address] [place] [address] Care Team Providers Care Ict Managers Name Role Phone SUNI SAMUELS Primary Care Provider SUNI SAMUELS Referring Provider [phone] Assessment Encounter Date Assessment Date Assessment LastModified by Organization Details LastModified Time 12/26/2022 12/26/2022 This note is dictated and transcribed by [employer]. [employer] Former variances may occur. Despite proofreading, typographical errors may occur. Not available 12/26/2022 14:40:58 06/30/2023 06/30/2023 This note is dictated and transcribed by [employer]. [place] Former variances may occur. Despite proofreading, typographical errors may occur. Occasional wrong-word or '[id number]' substitutions may have occurred due to the inherent limitations of voice recording. Read the chart carefully and recognize, using context, where substitutions have occurred. Not available 06/30/2023 15:21:42 05/28/2024 05/28/2024 68-year-old patient presents today with right shoulder pain that started a few weeks ago. She states in the past she was seen for her right shoulder in 2021. She got a cortisone injection and did not have pain again until recently, 10/10. She denies any new injury to the shoulder. She states she has pain with all movements and lifting. For pain she takes ibuprofen and massage. review of systems per patient questionnaire Imaging: X-rays reviewed show no acute bony abnormality, no fracture. 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 Physical exam: Tenderness to palpitation over posterior shoulder as well as AC joint. Range of motion 150/40/ lower lumbar. Negative Arlette's, 5/5 rotator cuff strength. Sensation intact throughout. She would like to do another cortisone injection today since the last 1 worked so well for her. That was given without issue. We discussed that she should work on shoulder exercises as well, we provided her with a handout today. We can see her back as needed for pain. She is in agreement with this plan. [email or web address] Not available 05/28/2024 11:21:10 Plan of Treatment Reminders Order Date Submit Date Provider Last Modified By Organization Details Last Modified Time Details Appointments None recorded. Lab None recorded. Referral None recorded. Procedures injection/a spiration joint/bursa (PROC) 2024 025 [email or web address] In-Office Order, Internal Use Only DO Not Attach Compendium DO Not Attach Compendium, Do Not Delete/merge, [id number] 10:37:59 Surgeries None recorded. Imaging XR, shoulder, 2 or more view 2024 025 [email or web address] [place], [address], [place], [address], 09:37:08 Medication Orders bupivacaine HCl 0.5 % (5 mg/mL) injection solution [address] [facility] [email or web address], [address], 09:35:56 Kenalog 10 mg/mL suspension for injection [address] [facility], [address] [email or web address], [address], 5 09:35:56 ammonium lactate 12 % lotion 2022 023 [email or web address] [facility], [address] [place], [address], 5 11:52:04 Tresiba FlexTouch U-200 insulin 200 unit/mL (3 mL) subcutaneou s pen [address] [facility] [address], [address] [place], [address], 5 11:57:05 Novolog FlexPen U-100 Insulin aspart 100 unit/mL (3 mL) subcutaneou s [address] [facility] [address] [place], [address], 5 11:56:38 Ozempic 0.25 mg or 0.5 mg (2 mg/1.5 mL) subcutaneou s pen injector [address] [facility] [address] [place], [address], 5 11:56:27 Gvoke HypoPen 2-Pack 1 mg/0.2 mL subcutaneou s auto-inject or [address] [place], [address], 5 11:56:42 levothyroxi ne 112 mcg tablet 2022 023 KELSI [facility] [address], [address] [place], [address], 3 14:48:03 Patient TargetsNo targets recorded. Patient InstructionsNo instructions recorded. Reason for Referral None Reported. Results Created Date Observation Date Name Description Value Unit Range Abnormal Flag Note LastModifiedBy Organization Detail LastModifiedTime 09/24/19 24 09/24/2023 MAMMO , diagn ostic , bilat eral No observ ation record ed. [email or web address] [address], [place], [address], 11/18/2023 10:30:37 05/29/19 25 XR, shoul alexis, 2 or more view No observ ation record ed. [email or web address] [facility] [place] [address], [place], [address], 05/31/2024 09:37:07 07/08/19 25 07/07/2024 imagi ng/di agnos tic resul t No observ ation record ed. [facility] [address], [place], [address], 07/07/2024 15:03:58 07/08/19 25 07/07/2024 imagi ng/di agnos tic resul t No observ ation record ed. [facility] [address], [place], [address], 07/07/2024 15:04:49 Result Notes None recorded. Problems Name Problem SNOMED Code Status Onset Date Resolution Date Notes Provider Name and Address Organization Details Recorded Time Dry skin 21863923 Active Not Available [facility] 3 01:07:56 Type 2 diabetes mellitus 76115867 Active Not Available [facility] 3 01:07:57 Hypothyroi dism 63863189 Active 2017 Not Available [facility] 3 01:07:57 Diabetes mellitus 49791138 Active 2017 Not Available [facility] 3 01:07:58 Hypertensi ve disorder 53551860 Active 2018 Not Available [facility] 3 01:07:57 Hyperlipid emia 21365327 Active 2018 Not Available [facility] 3 01:07:58 Amputated below knee 734334111 Active 2019 Not Available [facility] 3 01:07:56 Mild major depression 31491862 Active 2019 Not Available [facility] 3 01:07:59 Subungual hematoma 627070368 Active 2019 Not Available [facility] 3 01:07:56 Dry skin dermatitis 160588862 Active 2020 Not Available [facility] 3 01:07:56 Amputated right lower limb below knee 535706423 Active 2021 Not Available [facility] 3 01:07:58 Pain of right shoulder joint 9762714768376 9100 Active 2021 Not Available [facility] 3 01:07:56 Uncontroll ed type 2 diabetes mellitus 578938557 Active 2021 Not Available [facility] 3 01:07:57 Dyslipidem ia 993554727 Active 2021 Not Available [facility] 3 01:07:57 Well controlled type 2 diabetes mellitus 517386296 Active 2021 Not Available [facility] 3 01:07:57 Subclinica l hypothyroi dism 58080612 Active 2021 Not Available [facility] 3 01:07:58 Vitamin B12 deficiency (non anemic) 31942914 Active 2021 Not Available [facility] 3 01:07:58 Fecal incontinen ce with fecal urgency 2501199981992 02 Active 2021 Not Available [facility] 3 01:07:56 Eruption 318436929 Active 2021 Not Available [facility] 3 01:07:56 COVID-19 182158386 Active 2021 Not Available [facility] 3 01:07:59 Contact dermatitis 64507804 Active 2021 Not Available [facility] 3 01:07:57 Mixed hyperlipid emia 469049502 Active 2022 Yvonne James MD [address], [place], [address] , [employer] [facility] [employer] [facility] 3 17:20:04 Mammograph y abnormal 928305774 Active 2022 YESSENIA Bell [address], [place], [address] , [employer] [facility] [employer] [facility] 3 16:03:07 Diabetic peripheral neuropathy 277860493 Active 2022 Dustin Anderson DPM [address], [address], [place], [address] , [facility] 3 11:14:49 Foot callus 755938889 Active 2022 Dustin Anderson DPM [address], [address], [place], [address] , [facility] 3 11:14:55 History of amputation of right leg through tibia and fibula 0750725606891 01 Active 2022 Dustin Anderson DPM [address], [address], [place], [address] , [facility] 3 11:15:27 Dystrophia unguium 35203480 Active 2022 Dustin Anderson DPM [address], [address], [place], [address] , [facility] 14:41:52 Notes:COVID-19 pos 10/18/21 Problem Notes None recorded. Procedures Surgical History Date Name Laterality Status Provider Name and Address Organization Details Recorded Time 05/29/19 25 Ortho - Cortisone Injection completed Angelita Sanchez NP [address], [place], [address], [facility] 05/28/2024 11:21:27 06/30/19 24 Nail Debridement completed Dustin Anderson DPM [address], [place], [address], [facility] 06/30/2023 15:19:19 09/27/19 23 Callus Debridement, One completed Dustin Anderson DPM [address], [place], [address], [facility] 09/26/2022 11:13:40 09/24/19 23 Medicare Wellness CPT Code, subsequent completed Rosette Dove RN [facility] 09/23/2022 14:45:41 06/18/19 23 Date of Last Mammogram completed KATRIN Brewer CA - [facility] 09/20/2022 12:33:33 06/16/19 22 Most Recent Bone Density completed Not Available [facility] 05/01/2022 00:54:15 04/05/19 22 Date of Last Colonoscopy completed Not Available [facility] 05/01/2022 00:54:15 04/05/19 22 colonoscopy completed Not Available [facility] 05/01/2022 00:54:26 Unlisted px femur/knee completed Not Available [facility] 05/01/2022 00:54:26 Cholecystectomy completed Not Available [facility] 05/01/2022 00:54:26 amputation of toe completed Not Available [facility] 05/01/2022 00:54:26 Tonsillectomy completed Not Available [facility] 05/01/2022 00:54:26 Tubal Ligation completed Not Available [facility] 05/01/2022 00:54:26 Imaging Results None recorded. Procedure Notes None recorded. Medical Equipment None Reported. Allergies Allergen ID Allergen Name Allergen Category Reaction Reaction Severity Criticality Documentation Date Start Date Code Code System Note Provider Name and Address Organization Details Recorded Time 2402 acetamino phen / oxycodone medicatio n Not available Not available Not available 05/01/2022 62574 3 RxNorm Not Available [facility] 3 01:27:06 2403 Augmentin medicatio n Not available Not available Not available 05/01/2022 69220 2 RxNorm Not Available [facility] 3 01:27:06 Medications Name Sig Start Date Stop Date Status Note LastModified by Organization Details LastModified Time relion pen needles 31g x 8mm 31g x 8 mm misc 05/27 completed Not Available Not Available Not Available amoxicill in 500 mg capsule 08/20 completed Not Available Not Available Not Available fluconazo le 100 mg tablet Take 1 tablet every day by oral route. active Not Available Not Available No t Available atorvasta tin 40 mg tablet Take 1 tablet every day by oral route. 09/14 completed Not Available Not Available Not Available silver sulfadiaz ine 1 % topical cream 07/25 completed Not Available Not Available Not Available metformin 500 mg tablet Take 1 tablet twice a day by oral route before meals for 30 days. active Not Available Not Available No t Available gabapenti n 600 mg tablet TAKE 1 TABLET BY MOUTH THREE TIMES DAILY 05/27 completed Not Available Not Available Not Available doxycycli ne hyclate 100 mg capsule 08/20 completed Not Available Not Available Not Available atorvasta tin 20 mg tablet Take 1 tablet every day by oral route. active Not Available Not Available No t Available clindamyc in HCl 300 mg capsule Take 1 capsule every 6 hours by oral route for 7 days. active Not Available Not Available No t Available ammonium lactate 12 % lotion APPLY LOTION TO FOOT ONCE DAILY NEEDED. 05/27 completed Not Available Not Available Not Available triamcino lone acetonide 0.5 % topical cream APPLY A THIN LAYER TO THE Abdomen BY TOPICAL ROUTE 2 TIMES PER DAY 05/27 completed Not Available Not Available Not Available azithromy tori 250 mg tablet 10/10 completed Not Available Not Available Not Available ibuprofen 800 mg tablet TAKE 1 TABLET BY MOUTH TWICE DAILY WITH FOOD NEEDED 05/27 completed Not Available Not Available Not Available Glucagon Emergency Kit 1 mg solution for injection Take 1 mg as needed by injectio n route as needed for 1 day. active take if sugar under 50 mg/dL and not able to take glucose by mouth Not Available Not Available Not Available nystatin 100,000 unit/gram topical ointment 07/25 completed Not Available Not Available Not Available fluconazo le 150 mg tablet 08/20 completed Not Available Not Available Not Available clarithro mycin 500 mg tablet 08/20 completed Not Available Not Available Not Available hydrocodo ne 5 mg-acetam inophen 325 mg tablet TK 1 T PRN TID FOR 7 DAYS active Not Available Not Available No t Available sucralfat e 1 gram tablet 07/25 completed Not Available Not Available Not Available cefepime 2 gram solution for injection 06/06 completed Not Available Not Available Not Available lisinopri l 20 mg tablet TAKE 1 TABLET BY MOUTH ONCE DAILY IN THE MORNING 05/27 completed Not Available Not Available Not Available bupivacai ne HCl 0.5 % (5 mg/mL) injection solution Take 4 mL by injectio n route. 2024 active Not Available Not Available Not Avai lable ciproflox acin 400 mg/200 mL in 5 % dextrose intraveno us piggyback as directed 06/05 completed Not Available Not Available Not Available Lantus U-100 Insulin 100 unit/mL subcutane ous solution 06/06 completed Not Available Not Available Not Available Accu-Chek Softclix Lancets 04/03 completed Not Available Not Available Not Available metronida zole 500 mg tablet 06/06 completed Not Available Not Available Not Available valacyclo vir 500 mg tablet TAKE 1 TABLET BY MOUTH TWICE DAILY NEEDED FOR 7 DAYS active Not Available Not Available No t Available ciproflox acin 500 mg tablet Take 1 tablet every 12 hours by oral route for 7 days. 08/20 completed Not Available Not Available Not Available sulfameth oxazole 800 mg-trimet hoprim 160 mg tablet 08/20 completed Not Available Not Available Not Available hydrocodo ne 10 mg-acetam inophen 325 mg tablet TK 1 T PO Q 6 H PRN active Not Available Not Available No t Available omeprazol e 40 mg capsule,d elayed release TAKE 1 CAPSULE BY MOUTH ONCE DAILY active Not Available Not Available No t Available liothyron ine 5 mcg tablet Take 1 tablet every day by oral route. 05/27 completed Not Available Not Available Not Available doxycycli ne monohydra te 100 mg tablet 08/20 completed Not Available Not Available Not Available vancomyci n 1,000 mg intraveno us injection 06/06 completed Not Available Not Available Not Available triamcino lone acetonide 0.1 % topical cream APPLY A THIN LAYER TO THE FOOT TOPICALL Y DAILY NEEDED. 05/27 completed Not Available Not Available Not Available bupropion HCl SR 100 mg tablet,12 hr sustained -release 06/06 completed Not Available Not Available Not Available levothyro xine 100 mcg tablet Take 1 tablet by mouth once daily 05/27 completed Not Available Not Available Not Available Lamisil AT 1 % topical cream 07/25 completed Not Available Not Available Not Available bupropion HCl 100 mg tablet TAKE 1 TABLET BY MOUTH TWICE DAILY 05/27 completed Not Available Not Available Not Available citalopra m 20 mg tablet 06/06 completed Not Available Not Available Not Available Kenalog 10 mg/mL suspensio n for injection Take 1 mL by injectio n route. 2024 active [facility]: [phone] 06-20 Not Available Not Available Not Available dexametha sone 1 mg tablet TAKE 1 TABLET BY MOUTH AT 10PM NIGHT BEFORE 8AM CORTISOL active Not Available Not Available No t Available doxycycli ne monohydra te 100 mg capsule Take 1 capsule twice a day by oral route with meals for 7 days. active Not Available Not Available No t Available hydrocodo ne 7.5 mg-acetam inophen 325 mg tablet TK 1 T PO TID FOR 7 DAYS active Not Available Not Available No t Available pantopraz ole 40 mg tablet,de layed release 06/06 completed Not Available Not Available Not Available cyanocoba godwin (vit B-12) 1,000 mcg/mL injection solution INJECT 1 ML SUBCUTAN EOUSLY ONCE A WEEK IN THE MORNING 09/14 completed Not Available Not Available Not Available trazodone 150 mg tablet TAKE 1 TABLET BY MOUTH ONCE DAILY AT BEDTIME 09/14 completed Not Available Not Available Not Available metformin 1,000 mg tablet TAKE 1 TABLET BY MOUTH TWICE DAILY 05/28 completed Not Available Not Available Not Available neomycin- polymyxin -dexameth 3.5 mg/mL-10, 000 unit/mL-0 .1% eye drops 08/20 completed Not Available Not Available Not Available nystatin 100,000 unit/gram topical cream APPLY TO THE VULVAR AREA TOPICALL Y TWICE DAILY NEEDED ONLY. active Not Available Not Available No t Available lisinopri l 10 mg tablet TAKE 1 TABLET BY MOUTH ONCE DAILY active Not Available Not Available No t Available gabapenti n 300 mg capsule TAKE 1 CAPSULE BY MOUTH THREE TIMES DAILY active Not Available Not Available No t Available omeprazol e 20 mg capsule,d elayed release 06/06 completed Not Available Not Available Not Available gentamici n 0.1 % topical cream APPLY A SMALL AMOUNT TO THE AFFECTED AREA BY TOPICAL ROUTE daily 07/25 completed Not Available Not Available Not Available insulin syringe U-100 with needle 0.3 mL 31 gauge x 07/16 completed Not Available Not Available Not Available lisinopri l 5 mg tablet TAKE 1 TABLET BY MOUTH ONCE DAILY IN THE MORNING 07/25 completed Not Available Not Available Not Available furosemid e 20 mg tablet Take 1 tablet every day by oral route. 06/06 completed Not Available Not Available Not Available Novolog U-100 Insulin aspart 100 unit/mL subcutane ous solution USE UP TO 75 UNITS DAILY PER PUMP. active Not Available Not Available No t Available insulin syringe U-100 with needle 1 mL 29 gauge x 1/2 09/15 completed Not Available Not Available Not Available vancomyci n 10 gram intraveno us solution 06/06 completed Not Available Not Available Not Available zaleplon 5 mg capsule TAKE 1 CAPSULE BY MOUTH ONCE DAILY AT BEDTIME active Not Available Not Available No t Available insulin lispro (U-100) 100 unit/mL subcutane ous solution INJECT UP TO 60 UNITS VIA INSULIN PUMP ONCE DAILY active Not Available Not Available No t Available cefuroxim e axetil 500 mg tablet 06/06 completed Not Available Not Available Not Available levofloxa tori 500 mg tablet 08/20 completed Not Available Not Available Not Available lisinopri l 40 mg tablet TAKE ONE TABLET BY MOUTH ONCE DAILY IN THE MORNING 06/06 completed Not Available Not Available Not Available cefdinir 300 mg capsule Take 1 capsule every day by oral route. 12/08 completed Not Available Not Available Not Available fluoxetin e 20 mg capsule 06/06 completed Not Available Not Available Not Available fluticaso ne propionat e 50 mcg/actua tion nasal spray,sherrill pension 07/25 completed Not Available Not Available Not Available lisinopri l 2.5 mg tablet Take 1 tablet every day by oral route. 06/06 completed Not Available Not Available Not Available gentamici n 0.1 % topical ointment active Not Available Not Available Not Available levothyro xine 112 mcg tablet TAKE 1 TABLET BY MOUTH ONCE DAILY ONE HOUR BEFORE EATING. active Not Available Not Available No t Available insulin lispro (U-100) 100 unit/mL subcutane ous pen INJECT 15 UNITS SUBCUTAN EOUSLY THREE TIMES DAILY BEFORE MEAL(S) 05/27 completed Not Available Not Available Not Available pen needle, diabetic 31 gauge x 5/16 USE 1 FIVE TIMES DAILY 05/27 completed Not Available Not Available Not Available escitalop vera 10 mg tablet Take 1 tablet every day by oral route. 06/06 completed Not Available Not Available Not Available Novolog FlexPen U-100 Insulin aspart 100 unit/mL (3 mL) subcutane ous Inject 20 units 3 times a day by subcutan eous route before meals for 30 days. 05/27 completed Not Available Not Available Not Available rosuvasta tin 10 mg tablet Take 1 tablet every day by oral route. 11/05 completed Not Available Not Available Not Available rosuvasta tin 20 mg tablet TAKE 1 TABLET BY MOUTH ONCE DAILY 05/27 completed Not Available Not Available Not Available fenofibra te micronize d 145 mg tablet Take 1 tablet every day by oral route at bedtime. 07/25 completed Not Available Not Available Not Available Pen Needle 31 gauge x 1/4 03/20 completed Not Available Not Available Not Available omega-3 acid ethyl esters 1 gram capsule TAKE 2 CAPSULES BY MOUTH TWICE DAILY BEFORE MEAL(S) 06/06 completed Not Available Not Available Not Available Lunesta 2 mg tablet Take 1 tablet as needed by oral route at bedtime. 09/02 completed Not Available Not Available Not Available valacyclo vir prn 04/10 completed Not Available Not Available Not Available Tylenol PM Takes PRN 05/27 completed Not Available Not Available Not Available Hair,Skin and Nails Takes daily 05/27 completed Not Available Not Available Not Available Levemir U-100 Insulin 100 unit/mL subcutane ous solution 06/06 completed Not Available Not Available Not Available Insulin Syringe 0.5 mL 29 gauge x 1/2 09/15 completed Not Available Not Available Not Available fenofibra te nanocryst allized 145 mg tablet TAKE 1 TABLET BY MOUTH ONCE DAILY 05/27 completed Not Available Not Available Not Available Lantus Solostar U-100 Insulin 100 unit/mL (3 mL) subcutane ous pen Inject 40 units twice a day by subcutan eous route. 06/06 completed Not Available Not Available Not Available Humalog KwikPen Insulin 10 units TID 05/26 completed Not Available Not Available Not Available omeprazol e 20 mg tablet,de layed release 06/06 completed Not Available Not Available Not Available diclofena c 1 % topical gel APPLY TWO GRAMS TO SINGLE ELBOW, WRIST, OR HAND FOUR TIMES DAILY; HAND INCLUDES PALM/FIN GERS/ZACHERY K OF HAND 04/03 completed Not Available Not Available Not Available Besivance 0.6 % eye drops,sherrill pension 07/25 completed Not Available Not Available Not Available levothyro xine 100 mcg capsule Take 1 capsule every day by oral route. 04/10 completed Not Available Not Available Not Available insulin syringe U-100 with needle 1 mL 31 gauge x 15/64 USE WITH B12 INJECTIO NS ONCE WEEKLY DIRECTED 05/27 completed Not Available Not Available Not Available Contour Next Test Strips USE TO TEST BLOOD SUGAR SIX TIMES DAILY BEFORE MEALS AND DIRECTED active Not Available Not Available No t Available icosapent ethyl 1 gram capsule TAKE 2 CAPSULES BY MOUTH TWICE DAILY BEFORE MEAL(S) 05/27 completed Not Available Not Available Not Available Lotemax 0.5 % eye gel drops 07/25 completed Not Available Not Available Not Available Prolensa 0.07 % eye drops 07/25 completed Not Available Not Available Not Available Farxiga 10 mg tablet Take 1 tablet every day by oral route. 06/06 completed Not Available Not Available Not Available Farxiga 5 mg tablet TAKE 1 TABLET BY MOUTH ONCE DAILY active Not Available Not Available No t Available Jardiance 25 mg tablet Take 1 tablet every day by oral route. 05/16 completed Not Available Not Available Not Available Trulicity 1.5 mg/0.5 mL subcutane ous pen injector Inject 1.5 mg every week by subcutan eous route in the morning for 28 days. 05/27 completed Not Available Not Available Not Available Trulicity 0.75 mg/0.5 mL subcutane ous pen injector Inject 0.75 mg every week by subcutan eous route in the morning for 30 days. active Not Available Not Available No t Available OneTouch Verio Meter 03/20 completed Not Available Not Available Not Available Centrum [place] Women Takes daily 04/03 completed Not Available Not Available Not Available Toujeo SoloStar U-300 Insulin 300 unit/mL (1.5 mL) subcutane ous pen Inject 20 units every day by subcutan eous route in the evening. 04/14 completed Not Available Not Available Not Available Toujeo SoloStar U-300 Insulin 20 units in evening 06/06 completed Not Available Not Available Not Available Tresiba FlexTouch U-200 insulin 200 unit/mL (3 mL) subcutane ous pen INJECT 80 UNITS SUBCUTAN EOUSLY ONCE DAILY AT BEDTIME 05/27 completed Not Available Not Available Not Available Shingrix (PF) 50 mcg/0.5 mL intramusc ular suspensio n, kit PHARMACI ST ADMIN[facility] ERED IMMUNIZA TION ADMINIST ERED AT TIME OF DISPENSI NG 09/15 completed Not Available Not Available Not Available Ozempic 0.25 mg or 0.5 mg (2 mg/1.5 mL) subcutane ous pen injector Inject 0.5 mg every week by subcutan eous route at dinner for 90 days. 05/27 completed Not Available Not Available Not Available Lotemax SM 0.38 % eye gel drops 07/25 completed Not Available Not Available Not Available Fluzone Quad (PF) 60 mcg (15 mcg x 4)/0.5 mL IM syringe PHARMACI ST ADMINIST ERED IMMUNIZA TION ADMINIST ERED AT TIME OF DISPENSI NG active Not Available Not Available No t Available Gvoke HypoPen 1-Pack 1 mg/0.2 mL subcutane ous auto-inje ctor INJECT 1MG SUBCUTAN EOUSLY ONCE NEEDED FOR SUGARS UNDER 50MG/DL 05/27 completed Not Available Not Available Not Available Fluzone Quad (PF) 60 mcg (15 mcg x 4)/0.5 mL IM syringe ADM 0.5ML IM UTD active Not Available Not Available No t Available Trulicity 3 mg/0.5 mL subcutane ous pen injector INJECT 3MG (1 PEN) SUBCUTAN EOUSLY ONCE A WEEK IN THE MORNING 09/14 completed Not Available Not Available Not Available Pfizer COVID-19 Vaccine (EUA) 09/15 completed Not Available Not Available Not Available Ozempic 1 mg/dose (4 mg/3 mL) subcutane ous pen injector INJECT 1MG SUBCUTAN EOUSLY ONCE WEEKLY DIRECTED 05/27 completed Not Available Not Available Not Available Paxlovid 300 mg (150 mg x 2)-100 mg tablets in a dose pack 300 mg nirmatre lvir (two 150 mg tablets) with 100 mg ritonavi r (one 100 mg tablet) with all three tablets taken together orally twice daily for 5 days. DO NOT take fenofibr ate or rosuvast atin for 7 days. active Not Available Not Available No t Available Omnipod 5 G6 Pods (Gen 5) subcutane ous cartridge USE DIRECTED . CHANGE EVERY 72 HOURS active Not Available Not Available No t Available Dexcom G7 Sensor device CHANGE SENSOR EVERY 10 DAYS active Not Available Not Available No t Available Ozempic 0.25 mg or 0.5 mg (2 mg/3 mL) subcutane ous pen injector INJECT 0.5 MG SUBCUTAN OUSLY ONCE WEEKLY. active Not Available Not Available No t Available Omnipod 5 G6-G7 Intro Kit(Gen 5) subcutane ous cartridge and controlle r USE DIRECTED active Not Available Not Available No t Available Omnipod 5 G6-G7 Pods (Gen 5) subcutane ous cartridge USE DIRECTED . CHANGE EVERY 3 DAYS active Not Available Not Available No t Available Omnipod 5 (G6/Dasia 2 Plus) subcutane ous cartridge active Not Available Not Available No t Available Vitals Date Recorded Body height Heart rate Respiratory rate Oxygen saturation Oxygen saturation in Arterial blood by Pulse oximetry Systolic And Diastolic Provider Name and Address Organization Details Last Updated DateTime 4 167.64 cm 98 /min 14 /min 99 % 99 % 117/70 mm[Hg] Anca HOWARD - [facility] 4 14:19:10 Date Recorded Body height Body mass index (BMI) Body weight Provider Name and Address Organization Details Last Updated DateTime 05/28/2024 162.56 cm 32.6 kg/m2 03560.55 g Luh Real ATC L [facility] 05/28/2024 10:20:28 Date Recorded Body height Body mass index (BMI) Body weight Heart rate Respiratory rate Oxygen saturation Oxygen saturation in Arterial blood by Pulse oximetry Systolic And Diastolic Provider Name and Address Organization Details Last Updated DateTime 4 167.64 cm 32.3 kg/m2 85318.4 7 g 91 /min 14 /min 98 % 98 % 136/65 mm[Hg] Merline Munir [facility] 4 14:39:01 Date Recorded Body height Body mass index (BMI) Body weight Body temperature Respiratory rate Heart rate Systolic And Diastolic Provider Name and Address Organization Details Last Updated DateTime 3 167.64 cm 32.3 kg/m2 10016.4 7 g 98 [degF] 14 /min 92 /min 141/71 mm[Hg] Smiley Perdomo RN [facility] 3 14:30:55 Date Recorded Body height Body mass index (BMI) Body weight Heart rate Respiratory rate Oxygen saturation Oxygen saturation in Arterial blood by Pulse oximetry Systolic And Diastolic Provider Name and Address Organization Details Last Updated DateTime 3 167.64 cm 32.3 kg/m2 31072.4 7 g 93 /min 14 /min 98 % 98 % 117/72 mm[Hg] Merline Amaral [facility] 3 14:08:34 Social History Question Answer Notes LastModified by Organizat ion Details LastModified Time Tobacco Smoking Status Never Smoker Not Available [facility] 05/01/2022 00:49:05 Do You Have An Advance Directive? No [id number].[id number] Information not available 05/01/2022 Are You Blind Or Do You Have Difficulty Seeing? No MIGRATION.136435 6227 Information not available 05/01/2022 What Is Your Level Of Caffeine Consumption? Moderate MIGRATION.328686 1890 Information not available 05/01/2022 How Much Tobacco Do You Chew? None MIGRATION.957303 0292 Information not available 05/01/2022 In The 14 Days Before Symptom Onset, Have You Had Close Contact With A Laboratory-confirm ed COVID-19 While That Case Was Ill? No MIGRATION.246010 1276 Information not available 05/01/2022 In The 14 Days Before Symptom Onset, Have You Had Close Contact With A Person Who Is Under Investigation For COVID-19 While That Person Was Ill? No MIGRATION.223578 2364 Information not available 05/01/2022 Are You Deaf Or Do You Have Serious Difficulty Hearing? No MIGRATION.197273 7124 Information not available 05/01/2022 What Type Of Diet Are You Following? REGULAR MIGRATION.285184 2896 Information not available 05/01/2022 Which Illicit Or Recreational Drugs Have You Used? None MIGRATION.093321 8555 Information not available 05/01/2022 Have There Been Any Changes To Your Family Or Social Situation? No MIGRATION.739211 5336 Information not available 05/01/2022 When Did You Quit Smoking? 16+yearssince lastcigarette MIGRATION.015946 5432 Information not available 05/01/2022 Do You Use Insect Repellent Routinely? No MIGRATION.987251 7266 Information not available 05/01/2022 Advance Directive- Providers Has Reviewed Directive And Consents To Follow Them (insert Provider Name With Any Objectives In Notes Field) No MIGRATION.886329 9839 Information not available 05/01/2022 Do You Have A Medical Power Of Power Electronics Research Engineer? No MIGRATION.151362 8098 Information not available 05/01/2022 What Was The Date Of Your Most Recent Tobacco Screening? 04/03/2021 MIGRATION.391173 8798 Information not available 05/01/2022 How Many Children Do You Have? 2 MIGRATION.610601 6403 Information not available 05/01/2022 What Is Your Current Pack Years? 30ormorepacky ears MIGRATION.967795 8315 Information not available 05/01/2022 Do You Have Any Pets? Yes MIGRATION.173641 0242 Information not available 05/01/2022 What Is Your Relationship Status? MIGRATION.671110 4782 Information not available 05/01/2022 Do You Use Your Seat Belt Or Car Seat Routinely? Yes MIGRATION.621308 5569 Information not available 05/01/2022 Do You Have Smoke And Carbon Monoxide Detectors In Your Home? Yes MIGRATION.611527 5770 Information not available 05/01/2022 Are You Passively Exposed To Smoke? No MIGRATION.579592 1960 Information not available 05/01/2022 Are There Any Smokers In Your House? No MIGRATION.754780 9662 Information not available 05/01/2022 How Much Tobacco Do You Smoke? 3+ PPD MIGRATION.692679 7461 Information not available 05/01/2022 Do You Use Sunscreen Routinely? No MIGRATION.226881 5290 Information not available 05/01/2022 Have You Recently Traveled Abroad? No MIGRATION.586683 4350 Information not available 05/01/2022 Do You Have Difficulty Walking Or Climbing Stairs? No MIGRATION.486772 6571 Information not available 05/01/2022 Do You Have Any Dietary Restrictions? No MIGRATION.150464 6235 Information not available 05/01/2022 Sex: Unknown Functional Status Question Answer Note LastModified by [employer] ion Details LastModified Time Do you use any illicit or recreational drugs? No MIGRATION.698854 3365 Information not available 05/01/2022 Do you or have you ever used any other forms of tobacco or nicotine? No MIGRATION.057288 6553 Information not available 05/01/2022 What is your level of alcohol consumption? None MIGRATION.365201 9693 Information not available 05/01/2022 Do you or have you ever used smokeless tobacco? Never used smokeless tobacco MIGRATION.063105 7015 Information not available 05/01/2022 Do you have transportation difficulties? No MIGRATION.350760 4751 Information not available 05/01/2022 Are you able to walk? [place] [address] Information not available 09/23/2022 Do you have difficulty doing errands alone? No MIGRATION.330051 8436 Information not available 05/01/2022 Are you able to care for yourself independently? Yes MIGRATION.003969 5267 Information not available 05/01/2022 Do you have difficulty dressing, bathing, grooming, or toileting? No MIGRATION.576993 5076 Information not available 05/01/2022 Do you or have you ever used e-cigarettes or vape? Never used electronic cigarettes MIGRATION.797379 2450 Information not available 05/01/2022 What is your exercise level? None MIGRATION.808702 5424 Information not available 05/01/2022 Mental Status Question Answer Note LastModified by [employer] ion Details LastModified Time Do you have difficulty concentrating, remembering or making decisions? No MIGRATION.[id number] 6 Information not available 05/01/2022 Family History Relationship Description Onset Age of this Age Resolved Age Notes LastModified by Organization Details LastModified Time Father Diabetes mellitus [id number] Not available 05/01/2022 00:54:30 Medical History Condition Response DIABETES, TYPE Y DEPRESSION (INCLUDING POST ) Y HYPERTENSION Y HIGH CHOLESTEROL / HYPERLIPIDEMIA Y HYPOTHYROIDISM Y Gynecological History Statement/Question Response Date of Last Mammogram 06/15/2021 Date of Last Colonoscopy 04/05/2021 Date of Last Mammogram 06/17/2022 Most Recent Bone Density 06/15/2021 Sexually Active? Y Obstetrics History GPAL:G 2 P 0 0 0 2 Type Value Living 2 Total 2 Immunizations Vaccine Type Date Status Note Provider Nam e and Address Organization Details Recorded Time RSV, recombinant, protein subunit RSVpreF, adjuvant reconstituted, 0.5 mL, PF 3 completed Rosette Dove RN null, [facility] 12/31/2022 16:04:40 Influenza, adjuvanted, quadrivalent, PF 3 completed Rosette Dove RN null, [facility] 12/31/2022 16:06:11 COVID-19, mRNA, LNP-S, PF, demian-sucrose, 30 mcg/0.3 mL 3 completed Elif Hearn MA null, [facility] 01/01/2023 09:25:41 Pneumococcal conjugate PCV 13 2 completed Not Available [facility] 05/01/2022 01:26:27 COVID-19, mRNA, LNP-S, PF, 30 mcg/0.3 mL dose 2 completed Not Available [facility] 05/01/2022 01:26:27 zoster, unspecified formulation 0 completed Not Available [facility] 05/01/2022 01:26:27 Influenza, split virus, quadrivalent, preservative 9 completed Not Available [facility] 05/01/2022 01:26:28 influenza, unspecified formulation 8 completed Not Available [facility] 05/01/2022 01:26:28 COVID-19, mRNA, LNP-S, PF, 30 mcg/0.3 mL dose 2 completed Not Available [facility] 05/01/2022 01:26:28 COVID-19 vaccine, vector-nr, rS-ChAdOx1, PF, 0.5 mL 1 completed Not Available [facility] 05/01/2022 01:26:28 Influenza, split virus, quadrivalent, preservative 1 completed Not Available [facility] 05/01/2022 01:26:28 SARS-COV-2 (COVID-19) vaccine, UNSPECIFIED 1 completed Not Available [facility] 05/01/2022 01:26:28 Influenza, split virus, quadrivalent, preservative 0 completed Not Available [facility] 05/01/2022 01:26:29 Past Encounters Encounter ID Performer Location Encounter Start Date Encounter Closed Date Diagnosis/Indication Diagnosis SNOMED-CT Code Diagnosis ICD10 Code Diagnosis Note [id number] [facility] [place] [address] [place] [address] 05/29/2020 00:00:00 05/31/2020 09:55:19 [id number] Yvonne James MD [facility] [place] [address] [place] [address] 06/06/2020 00:00:00 06/06/2020 11:26:36 [id number] Yvonne James MD [facility] [place] [address] [place] [address] 07/25/2020 00:00:00 07/25/2020 15:33:08 [id number] [facility] [place] [address] [place] [address] 09/14/2020 00:00:00 09/15/2020 09:37:13 [id number] YESSENIA Bell [facility] [place] [address] [place] [address] 09/15/2020 00:00:00 09/29/2020 18:12:00 [id number] Yvonne James MD [facility] [place] [address] [place] [address] 10/24/2020 00:00:00 10/24/2020 16:29:12 [id number] [facility] [place] [address] [place] [address] 12/18/2020 00:00:00 12/19/2020 12:57:59 [id number] Yvonne James MD [facility] [place] [address] [place] [address] 01/23/2021 00:00:00 01/23/2021 13:47:49 [id number] YESSENIA Bell [facility] [place] [address] [place] [address] 03/16/2021 00:00:00 04/02/2021 10:27:21 [id number] [facility] [place] [address] [place] [address] 03/22/2021 00:00:00 03/26/2021 09:30:10 [id number] Shree Lock MD [facility] [place] [address] [place] [address] 04/03/2021 00:00:00 04/03/2021 16:32:51 [id number] Shree Lock MD [facility] [place] [address] [place] [address] 06/05/2021 00:00:00 06/05/2021 16:46:03 [id number] [facility] [place] [address] [place] [address] 06/21/2021 00:00:00 06/23/2021 12:37:13 [id number] [facility] [place] [address] [place] [address] 08/17/2021 00:00:00 08/17/2021 14:47:16 [id number] Keith Rosado MD [facility] [place] [address] [place] [address] 09/14/2021 00:00:00 09/30/2021 09:22:25 [id number] [facility] [place] [address] [place] [address] 09/20/2021 00:00:00 09/21/2021 11:54:42 [id number] [facility] [place] [address] [place] [address] 12/20/2021 00:00:00 12/20/2021 14:10:27 [id number] YESSENIA Bell [facility] [place] [address] [place] [address] 03/22/2022 00:00:00 04/02/2022 18:05:28 [id number] Yvonne James MD [facility] [place] [address] [place] [address] 05/21/2022 16:26:32 05/21/2022 17:30:55 Uncontrolled type 2 diabetes mellitus [id number] E11.65 a1c of 8.5% up from 7%- She feels the trulicity hasn't held its strength as she has had more weight gain and worsening diabetic control. Will transition to ozempic as her next dose is on Friday- she is aware to start at 0.25 mg once weekly x 4 weeks then increase to 0.5 mg once weekly thereafter . She has no hx of pancreatit is or medullary thyroid cancer and is willing to trial on a GLP1 agonist therapy. She was advised to contact clinic if she experience s any nausea, vomiting or significan t thyroid pain / swelling or abdominal pain so we can discuss and discontinu e and potentiall y look to other therapy. Continue on metformin for insulin sensitizat ion. Continue on tresiba 68 units at bedtime with self titration instructio ns along with novolog correction of 2U:50>150 mg/dL on premeal sugars. Mixed hyperlipidemia 267 023957 E78.2 TG over 300 mg/dL- she is on statin and fenofibrat e and still out of range- will trial on vascepa and she is aware she can drop her dose down to one capsule prior to meals if not well tolerated. Hypothyroidism 77509701 E03.9 TSH and FT4 in range, continue LT4 100 mcg daily. She was reminded to take her LT4 on empty stomach with glass of water and wait one hour to eat or have her coffee in morning and up to 4 hours if ever taking any heartburn or reflux medication s to help optimize absorption . Discussed paleo like diet with restrictio n of GMOs to help with energy and to optimize absorption of vitamins and minerals and reduce inflammati on. Spent up to 25 minutes preparing to see the patient (eg, review of tests), obtaining and/or reviewing separately obtained history, performing a medically appropriat e examinatio n and evaluation , counseling and educating the patient, ordering medication s, tests, along with documentin g clinical informatio n in the electronic health record, independen kevony interpreti ng results and communicat ing results to the patient. RTC in 4 months. Patient was provided a handwritte n lab order which contains our fax number. If she chooses to go outside of the [facility] system to obtain labwork she was advised to provide our fax number and my informatio n to the lab she will be obtaining labwork from in order to have her labs properly forwarded over for me to review so there is no loss of follow up due to use of outside network. She was also advised to contact our clinic informing us that she has completed her labwork so we are aware we will need to reach out to the appropriat e laboratory to request her results be forwarded to us so I might have the ability to review and make further medical decision making in her case. She voiced understand ing. [id number] YESSENIA Bell [facility] [place] [address] [place] [address] 09/23/2022 14:24:39 09/23/2022 15:20:17 Adult health examination 554719940 Z00.00 Screening for disorder 186587787 Z13.9 Uncontroll ed type 2 diabetes mellitus 276176532 E11.65 Subclinica l hypothyroidism 14214768 E02 Mixed hyperlipidemia 267 938348 E78.2 Dyslipidemia 716248365 E 78.5 Diabetic p eripheral neuropathy 648248187 E11.40 Amputated right lower limb below knee 720746615 Z89.511 [id number] Dustin Anderson DPM [facility] Pod[facility] [place] [address] [place] [address] 09/26/2022 10:30:00 09/26/2022 11:27:37 Diabetic peripheral neuropathy 892159044 E11.40 Patient educated on neuropathy , diabetes, diabetic diet, and daily foot exams. Patient is to check feet daily for new wounds, blisters, redness to prevent infection and ulceration s to the feet. Patient will return to clinic in 3 months for diabetic foot workup. Foot callus 852668701 L8 4 Left 1st metatarsop halangeal jointDebri ded without incidentRe commend continuing diabetic inserts and shoe gear History of amputation of right leg through tibia and fibula 3470075505 29956 Z89.511 [id number] Yvonne James MD [facility] [place] [address] [place] [address] 10/21/2022 14:14:38 10/21/2022 15:02:41 Uncontrolled type 2 diabetes mellitus 036340485 E11.65 a1c of 9.2% up from 8.5% up from 7%- She was reminded to uptitrate her ozempic to 0.5 mg once weekly as she is on the lowest dose currently- she is tolerating well. Continue on metformin for insulin sensitizat ion. Continue on tresiba but increase to 74 units at bedtime with self titration instructio ns along with novolog correction of 2U:50>150 mg/dL on premeal sugars. Hypothyroidism 76750816 E03.9 TSH and FT4 in low normal range, will uptitrate LT4 to 112 mcg daily. She was reminded to take her LT4 on empty stomach with glass of water and wait one hour to eat or have her coffee in morning and up to 4 hours if ever taking any heartburn or reflux medication s to help optimize absorption . Discussed paleo like diet with restrictio n of GMOs to help with energy and to optimize absorption of vitamins and minerals and reduce inflammati on. Spent up to 25 minutes preparing to see the patient (eg, review of tests), obtaining and/or reviewing separately obtained history, performing a medically appropriat e examinatio n and evaluation , counseling and educating the patient, ordering medication s, tests, along with documentin g clinical informatio n in the electronic health record, independen tly interpreti ng results and communicat ing results to the patient. Patient can be followed by PCP - she/he is aware of my resignatio n and last day of December 13. If needed his/her PCP can refer patient to another endocrinol ogist in the area. All questions /concerns answered and refills necessary at visit today. [id number] Dustin Anderson DPM [facility] Pod[facility] [place] [address] [facility] [address] [place] [address] 12/26/2022 13:59:31 12/26/2022 15:57:16 Diabetic peripheral neuropathy 766266829 E11.40 Patient educated on neuropathy , diabetes, diabetic diet, and daily foot exams. Patient is to check feet daily for new wounds, blisters, redness to prevent infection and ulceration s to the feet. Patient will return to clinic in 3 months for diabetic foot workup. History of amputation of right leg through tibia and fibula 5422807405 30317 Z89.511 Dystrophia unguium 94288 009 L60.3 debrided left lower extremity as needed without incident Foot callus 116112701 L8 4 Left footDebrid ed without incidentRe commend continuing diabetic inserts and shoe gear [id number] Dustin Anderson DPM [facility] Pod[facility] [place] [address] [facility] [address] [place] [address] 03/27/2023 14:12:06 04/02/2023 09:11:11 Type 2 diabetes mellitus 56447170 E11.9 Continue diabetic control per PCP Follow-up in 3 months for foot care Amputated right lower limb below knee 453367571 Z89.511 Right lower leg [id number] Dustin Anderson DPM [facility] Pod[facility] [place] [address] [facility] [address] [place] [address] 06/30/2023 14:34:10 07/01/2023 10:56:09 Diabetes mellitus 46515403 E11.40 Z86.31 Continue diabetic control per PCP recommenda tions Diabetic p eripheral neuropathy 100170111 E11.40 Patient educated on neuropathy , diabetes, diabetic diet, and daily foot exams. Patient is to check feet daily for new wounds, blisters, redness to prevent infection and ulceration s to the feet. Patient will return to clinic in 3 months for diabetic foot workup. Amputated right lower limb below knee 097688656 Z89.511 Right lower leg Dystrophia unguium 22786 009 L60.3 debrided left lower extremity as needed without incident [id number] Huseyin Galeana MD [facility] [place] [address] [facility] [address] [place] [address] 05/28/2024 09:42:10 05/28/2024 10:39:37 Pain of right shoulder joint [id number] 2859590 M25.511 Health Concerns Section Related Observation LastModified by Organization Detai ls LastModified Time None Recorded Concern Status LastModified by Organization Details LastModified Time None Recorded Advance Directives Directive N: Payers Insurance Date Sequence Insurance Name Policy Number Policy Brown Covered Member ID Brown Member ID Guarantor Name 07/15/2024 1 [facility] (MEDICARE REPLACEMENT/AD VANTAGE - PPO) [id number] Mikala Sahu [id number] Mikala Sahu 07/15/2024 3 [place] WHEN MEDICARE OR MEDICARE REPLACEMENT PRIMARY) Mikala Sahu [id number] Mikala Sahu 07/15/2024 2 [place] Mikala Sahu [id number] Mikala Sahu OBGyn Episode No OBEpisode recorded.
--- OUTSIDE RECORDS SUMMARY | 2024-09-29 00:14 | XMS_ITS | Clinical Summary ---
Author Organization [facility] Corinne mccoy Address [address] [place] [id number] Phone Care Team Providers Care [employer] Traffic Checker Name Role Phone Lakeisah Forrest Primary Care Provider [phone] Allergies Active Allergy Reactions Criticality Noted Date Comments Amoxicillin-Pot Clavulanate Hives 11/19/19 24 Medications Semaglutide,0.2 5 or 0.5MG/DOS, (Ozempic, 0.25 or 0.5 MG/DOSE,) 2 MG/3ML solution pen-injector Inject 0.5 mg under the skin per week Active lisinopril (PRINIVIL) 10 MG tablet Take 10 mg by mouth 1 (one) time each day Active fenofibrate (TRICOR) 145 MG tablet Take 145 mg by mouth 1 (one) time each day Active levothyroxine sodium (TIROSINT) 112 MCG capsule Take 112 mcg by mouth 1 (one) time each day Active Dapagliflozin Propanediol (Farxiga) 5 MG tablet Take 1 tablet by mouth 1 (one) time each day Active rosuvastatin (CRESTOR) 20 MG tablet Take 20 mg by mouth 1 (one) time each day Active buPROPion (WELLBUTRIN) 100 MG tablet Take 100 mg by mouth in the morning and 100 mg in the evening. Active omeprazole (PriLOSEC) [address] capsule Take 40 mg by mouth 1 (one) time each day Active ibuprofen (ADVIL) 800 MG tablet Take 800 mg by mouth in the morning and 800 mg in the evening. Active gabapentin (NEURONTIN) 600 MG tablet Take 600 mg by mouth 1 (one) time each day Active insulin aspart (NovoLOG) 100 UNIT/ML patient supplied pump Inject under the skin continuously Active FIBER PO Take by mouth 2 (two) times a day Active Active Problems Problem Noted Date Diagnosed Date Stage 3b chronic kidney disease 04/27/2024 Essential (primary) hypertension 12/31/2023 Hyperglycemia due to type 2 diabetes mellitus Anemia in chronic kidney disease 11/19/2023 Resolved Problems Problem Noted Date Diagnosed Date Resolved Date Kidney lesion 01/15/2024 04/27/2024 Chronic kidney disease 11/19/202312/30 Hypothyroidism 11/19/2023 12/31/2023 Abnormal result of kidney function study 11/19/2023 04/27/2024 Hyposmolality and/or hyponatremia 11/19/2023 12/31/2023 Social History Tobacco Use Types Packs/Day Years Used Date Smoking Tobacco: Never Assessed Comments Unknown Sex and Gender Information Value Date Recorded Sex Assigned at Not on file Legal Sex Female 3:00 PM MDT Gender Identity Not on file Sexual Orientation Not on file Last Filed Vital Signs Vital Sign Reading Time Taken Comments Blood Pressure 143/81 04/29/2024 12:45 PM [employer] Pulse 82 04/29/2024 12:45 PM [employer] Temperature - - Respiratory Rate - - Oxygen Saturation - - Inhaled Oxygen Concentration - - Weight 84.8 kg (187 lb) 04/29/2024 12:45 PM [employer] Height 162.6 cm (5' 4) 04/29/2024 12:45 PM [employer] Body Mass Index 32.1 04/29/2024 12:45 PM [employer] Plan of Treatment Upcoming Encounters Date Type Department Care Team ([facility] Contact Info) Description 11/11/2024 1:40 PM CDT Office Visit [facility] [address] [facility] [address] [place] [address] Dolly Fortune, HORACE [address] [address] Health Maintenance Due Date Last Done Comments Diabetic Foot Exam 1966 Ophthalmology Exam 1966 Pneumococcal PPSV23/PCV13 65 + Years / High and Highest Risk (2 of 4 - PPSV23, PCV20, or PCV21) 08/20/2021 06/25/2021, 01/29/2017 Influenza Vaccine (#1) 2024 12/12/2017, 2015 Insurance [facility] Member Subscriber Plan / Payer (Ef fective 2023-Present) Name:Mikala Sahu Relation to Subscriber:Self Name:Mikala Sahu Subscriber ID:Not on file Payer ID:[id number] (NAIC) Group ID:Not on file Type:Not on file Address: [address] [facility] Member Subscriber Plan / Payer ( fective 2023-Present) Name:Mikala Sahu Relation to Subscriber:Self Name:Mikala Sahu Subscriber ID:Not on file Payer ID:[id number] (NAIC) Type:Not on file Address: [address] Care Teams Water[employer] Traffic Checker Relationship Specialty Start Date End Date Lakeisha Forrest PA [address] [place] [address] PCP - General Family Medicine 12/25/23
--- OUTSIDE RECORDS SUMMARY | 2024-09-29 00:14 | XMS_ITS | Data Portability ---
Author Organization [facility] Address [address] [place] [address] Care Team Providers Care Sap Hana Architect Name Role Phone LAKEISHA FORREST Primary Care Provider Unavailab le Assessment Encounter Date Assessment Date Assessment LastModified by Organization Details LastModified Time 07/03/2023 07/03/2023 Mammogram due colonoscopy is UTD dr. rooney, not too long ago. will await records transfer from [facility] with dr. aguilar, close to being due. she has appt scheduled. Not available 07/03/2023 14:26:28 12/30/2023 12/30/2023 Mammogram UTD september [address] rooney, not too long ago. will await records transfer from [facility] with dr. aguilar, MDDenzel Not available 12/30/2023 15:22:10 06/29/2024 06/29/2024 Mammogram UTD september [address]. rooney, not too long ago. will await records transfer from [facility] with dr. aguilar, MDDenzel Not available 06/29/2024 15:16:47 Plan of Treatment Reminders Order Date Submit Date Provider Last Modified By Organization Details Last Modified Time Details Appointments ANY 15 2024 02:00P M YESSENIA Bell Not available Not available Not available Lab lipid panel, serum 2023 024 [email or web address] [facility], [facility] [address], [address], [place], [address], 08/14/2023 15:45:08 HbA1c (hemoglob in A1c), blood 2023 024 [email or web address] [facility], [address], [address], [place], [address], 08/14/2023 15:45:08 CBC w/ auto diff 2023 024 [email or web address] [facility], [address], [address], [place], [address], 08/14/2023 15:45:08 hepatic function panel, serum 2023 024 [email or web address] [facility], [address], [address], [place], [address], 08/14/2023 15:45:08 BMP, serum or plasma 2023 024 [email or web address], [address], [address], [place], [address], 08/14/2023 15:45:09 TSH + free T4, serum 2023 024 [facility], [address], [address], [place], [address], 07/28/2023 09:41:11 Referral endocrino logy referral 2023 024 [place], [address] [address], [place], [address], 09/26/2023 19:34:01 Procedures colonosco py procedure (PROC) - previous dr. rooney patient. apr 2021, had polyps. repeat was due 2023. [address] [facility], [address], [address], [place], [address], 06/29/2024 15:24:17 Surgeries None recorded. Imaging MAMMO, screening , digital, bilateral 2023 024 [facility], [address], [address], [place], [address], 09/24/2023 15:42:35 Medication Orders bupropion HCl SR 150 mg tablet,12 hr sustained -release 2024 025 [facility] [address] [place], [address], 06/29/2024 15:24:19 Patient TargetsNo targets recorded. Patient Instructions Encounter Date Encounter Id Patient Instructions Last Modified By Organization Details Last Modified Time 12/30/2023 [id number] A healthy lifestyle: care instructions [facility] Not available 12/30/2023 15:14:06 06/29/2024 [id number] A healthy lifestyle: care instructions [email or web address] Not available 06/29/2024 15:24:12 Reason for Referral Endocrinology Referral for U ncontrolled type 2 diabetes mellitus Referring Physician: Lakeisha Forrest, Internal Medicine, Encounter Date: 07/03/2023 Results Created Date Observation Date Name Description Value Unit Range Abnormal Flag Note LastModifiedBy Organization Detail LastModifiedTime 08/12/1908/10/2023 XR, humer us No observ ation record ed. [email or web address] [facility] [address] [facility], [place], [address], 08/14/2023 22:57:01 09/24/19 24 09/24/2023 MAMMO , scree magalie, digit al, bilat eral No observ ation record ed. [email or web address] [facility] [address], [place], [address], 12/30/2023 15:05:26 01/13/20 24 01/13/2024 US, renal No observ ation record ed. [email or web address] [facility] [address], [place], [address], 01/19/2024 14:30:19 03/12/19 25 03/11/2024 MRI, abdom en, w/wo contr ast No observ ation record ed. [facility] [email or web address] [facility] [address], [place], [address], 03/14/2024 18:08:12 07/08/19 25 07/07/2024 CT, abdom en + pelvi s, w/o contr ast No observ ation record ed. [address] [facility] [address], [place], [address], 07/27/2024 11:51:34 09/28/19 25 09/27/2024 MAMMO , scree magalie, digit al, bilat eral No observ ation record ed. [facility] [place] [address] Imaging [address], [place], [address], 09/27/2024 15:28:59 Result Notes None recorded. Problems Name Problem SNOMED Code Status Onset Date Resolution Date Notes Provider Name and Address Organization Details Recorded Time Amputated below knee 161198093 Active 2023 YESSENIA Bell Attn: Armando anne,[address] [place], [address], [facility] 4 00:39:05 Gastroesoph ageal reflux disease without esophagitis 779468032 Active 2023 YESSENIA Bell Attn: Armando anne,[address] [place], [address], [facility] 4 00:39:06 Benign essential hypertensio n 1769726 Active 2023 YESSENIA Bell Attn: Armando anne,[address] [place], [address], [facility] 4 00:39:08 Mixed anxiety and depressive disorder 728737105 Active 2023 YESSENIA Bell Attn: Armando anne,[address] [place], [address], [place] [facility] 4 00:39:10 Hypothyroid ism 27815792 Active 2023 YESSENIA eBll Attn: Accountin g,[address] [facility], [place], [address], [place] [facility] 4 00:39:11 Mixed hyperlipide tacho 326681926 Active 2023 YESSENIA Bell Attn: Accountin g,[address] [facility], [place], [address], [place] [facility] 4 00:39:13 Uncontrolle d type 2 diabetes mellitus 323620765 Active 2023 YESSENIA Bell Attn: Accountin g,[address] [place], [address], [place] [facility] 4 00:39:15 Body mass index 30+ - obesity 165108339 Active 2023 Sigifredo Gamble [place] null, [place] [facility] 4 14:59:46 Renal disorder due to type 2 diabetes mellitus 404399835 Active 2023 YESSENIA Bell Attn: Accountin g,[address] [facility], [place], [address], [place] [facility] 4 15:09:00 Neuropathy due to diabetes mellitus 382137506 Active 2023 YESSENIA Bell Attn: Accountin g,[address] [facility], [place], [address], [place] [facility] 4 15:09:01 Obesity 458695943 Active 2023 YESSENIA Bell Attn: Accountin g,[address] [facility], [place], [address], [place] [facility] 4 15:09:08 Long-term drug therapy Active 2023 YESSENIA Bell Attn: Accountin g,[address] [place], [address], [facility] 4 15:09:09 Insulin pump present 021810523 Active 2023 YESSENIA Bell Attn: Armando anne,[address] [facility], [place], [address], [facility] 4 15:12:58 Obese class I 7707510432590 07 Active 2024 YESSENIA Bell Attn: Armando anne,[address] [facility], [place], [address], [facility] 5 23:27:59 History of polyp of colon 837467659 Active 2024 YESSENIA Bell Attn: Armando anne,[address] [place], [address], [facility] 5 23:28:02 Positive screening for depression on PHQ-9 (Patient Health Questionnai re 9) 6690151291635 00 Active 2024 YESSENIA Bell Attn: Armando anne,[address] [facility], [place], [address], [facility] 5 23:28:13 Problem Notes None recorded. Procedures Surgical History Date Name Laterality Status Provider Name and Address Organization Details Recorded Time Amputation completed Amairani Walter MA [facility] 07/03/2023 14:02:23 Tonsillectomy completed Amairani Walter MA [facility] 07/03/2023 14:02:29 Imaging Results None recorded. Procedure Notes None recorded. Medical Equipment None Reported. Allergies Allergen ID Allergen Name Allergen Category Reaction Reaction Severity Criticality Documentation Date Start Date Code Code System Note Provider Name and Address Organization Details Recorded Time 524614 Augmentin medicatio n rash mild Not available 07/03/2023 40860 2 RxNorm Amairani Walter MA null, [facility] 4 14:00:30 Medications Name Sig Start Date Stop Date Status Note LastModified by Organization Details LastModified Time bupropion HCl SR 150 mg tablet,12 hr sustained -release TAKE 1 TABLET BY MOUTH TWICE DAILY active Not Available Not Available No t Available gabapenti n 600 mg tablet Take 1 tablet 3 times a day by oral route for 30 days. 06/29 completed Not Available Not Available Not Available ammonium lactate 12 % lotion Apply by topical route for 30 days. 12/29 completed Not Available Not Available Not Available ibuprofen 800 mg tablet TAKE 1 TABLET BY MOUTH TWICE DAILY WITH FOOD NEEDED 2024 active Not Available Not Available Not Avai lable lisinopri l 20 mg tablet TAKE 1 TABLET BY MOUTH ONCE DAILY IN THE MORNING 12/29 completed Not Available Not Available Not Available omeprazol e 40 mg capsule,d elayed release Take 1 capsule by mouth once daily 2024 active Not Available Not Available Not Avai lable bupropion HCl 100 mg tablet Take 1 tablet by mouth twice daily 06/29 completed discuss Not Available Not Available Not Available dexametha sone 1 mg tablet TAKE 1 TABLET BY MOUTH AT 10PM NIGHT BEFORE 8AM CORTISOL 06/29 completed Not Available Not Available Not Available metformin 1,000 mg tablet TAKE 1 TABLET BY MOUTH TWICE DAILY 12/29 completed Not Available Not Available Not Available lisinopri l 10 mg tablet TAKE 1 TABLET BY MOUTH ONCE DAILY active Not Available Not Available No t Available gabapenti n 300 mg capsule TAKE 1 CAPSULE BY MOUTH THREE TIMES DAILY active Not Available Not Available No t Available Novolog U-100 Insulin aspart 100 unit/mL subcutane ous solution USE UP TO 75 UNITS DAILY PER PUMP. active Not Available Not Available No t Available levothyro xine 112 mcg tablet TAKE 1 TABLET BY MOUTH ONCE DAILY ONE HOUR BEFORE EATING active Not Available Not Available No t Available insulin lispro (U-100) 100 unit/mL subcutane ous pen INJECT 15 UNITS SUBCUTAN EOUSLY THREE TIMES DAILY BEFORE MEAL(S) 12/29 completed Not Available Not Available Not Available rosuvasta tin 20 mg tablet TAKE 1 TABLET BY MOUTH ONCE DAILY active Not Available Not Available No t Available fenofibra te nanocryst allized 145 mg tablet TAKE 1 TABLET BY MOUTH ONCE DAILY AT BEDTIME active Not Available Not Available No t Available Vascepa 1 gram capsule Take by oral route for 90 days. 12/29 completed Not Available Not Available Not Available Farxiga 5 mg tablet Take 1 tablet every day by oral route for 90 days. active Not Available Not Available No t Available Tresiba FlexTouch U-200 insulin 200 unit/mL (3 mL) subcutane ous pen INJECT 80 UNITS SUBCUTAN EOUSLY ONCE DAILY AT BEDTIME 12/29 completed Not Available Not Available Not Available Gvoke HypoPen 1-Pack 1 mg/0.2 mL subcutane ous auto-inje ctor INJECT 1MG SUBCUTAN EOUSLY ONCE NEEDED FOR SUGARS UNDER 50MG/DL active Not Available Not Available No t Available Ozempic 1 mg/dose (4 mg/3 mL) subcutane ous pen injector INJECT 1MG ONCE A WEEK active Not Available Not Available No t Available Dexcom G7 Sensor device CHANGE SENSOR EVERY 10 DAYS active Not Available Not Available No t Available Ozempic 0.25 mg or 0.5 mg (2 mg/3 mL) subcutane ous pen injector INJECT 0.5 MG SUBCUTAN OUSLY ONCE WEEKLY. 12/29 completed Not Available Not Available Not Available Omnipod 5 G6-G7 Intro Kit(Gen 5) subcutane ous cartridge and controlle r USE DIRECTED active Not Available Not Available No t Available Omnipod 5 G6-G7 Pods (Gen 5) subcutane ous cartridge USE DIRECTED . CHANGE EVERY 3 DAYS active Not Available Not Available No t Available Vitals Date Recorded Systolic And Diastolic Provider Name and Address Organization Details Last Updated DateTime 06/29/2024 138/74 mm[Hg] YESSENIA Bell Attn: Accounting,[address] [place], [address], [facility] 06/29/2024 15:24:02 Date Recorded Body height Body mass index (BMI) Body weight Oxygen saturation Oxygen saturation in Arterial blood by Pulse oximetry Heart rate Respiratory rate Systolic And Diastolic Provider Name and Address Organization Details Last Updated DateTime 162.56 cm 31.6 kg/m2 71192 g 97 % 97 % 87 /min 20 /min 128/62 mm[Hg] Sigifredo Gamble MA [facility] 14:57:35 Date Recorded Respiratory rate Systolic And Diastolic Provider Name and Address Organization Details Last Updated DateTime 07/03/2023 16 /min 120/70 mm[Hg] YESSENIA Bell Attn: Accounting, [place], [address], [facility] 07/03/2023 14:26:40 Date Recorded Body weight Body mass index (BMI) Body height Heart rate Oxygen saturation Oxygen saturation in Arterial blood by Pulse oximetry Systolic And Diastolic Provider Name and Address Organization Details Last Updated DateTime 4 72108.2 6 g 33.7 kg/m2 162.56 cm 74 /min 99 % 99 % 128/72 mm[Hg] Amairani Walter MA [facility] 14:05:46 Date Recorded Systolic And Diastolic Provider Name and Address Organization Details Last Updated DateTime 12/30/2023 130/80 mm[Hg] YESSENIA Bell Attn: Accounting,[address] [place], [address], [facility] 12/30/2023 15:21:08 Date Recorded Body height Body mass index (BMI) Body weight Respiratory rate Oxygen saturation Oxygen saturation in Arterial blood by Pulse oximetry Heart rate Systolic And Diastolic Provider Name and Address Organization Details Last Updated DateTime 4 162.56 cm 32.8 kg/m2 49148.1 4 g 16 /min 98 % 98 % 80 /min 126/82 mm[Hg] Sigifredo Gamble MA [facility] 4 15:01:40 Social History Question Answer Notes LastModified by Organizat ion Details LastModified Time Tobacco Smoking Status Former Smoker Amairani Walter MA null, [facility] 07/03/2023 14:01:34 Do You Have An Advance Directive? No Information n ot available 07/03/2023 Are You Blind Or Do You Have Difficulty Seeing? No Information n ot available 07/03/2023 What Is Your Level Of Caffeine Consumption? Moderate Information not available 07/03/2023 In The 14 Days Before Symptom Onset, Have You Had Close Contact With A Laboratory-confirm ed COVID-19 While That Case Was Ill? No Information n ot available 07/02/2023 In The 14 Days Before Symptom Onset, Have You Had Close Contact With A Person Who Is Under Investigation For COVID-19 While That Person Was Ill? No Information not available 07/02/2023 Have You Been To An Area Known To Be High Risk For COVID-19? No Information not available 07/02/2023 Are You Deaf Or Do You Have Serious Difficulty Hearing? No Information not available 07/03/2023 What Type Of Diet Are You Following? REGULAR Information n ot available 12/30/2023 Are There Any Guns Present In Your Home? No Information not available 07/03/2023 What Was The Date Of Your Most Recent Tobacco Screening? 06/29/2024 Information not available 06/29/2024 What Is Your Current Pack Years? 10packyears Information not available 07/03/2023 What Is Your Relationship Status? Information not available 07/03/2023 Do You Use Your Seat Belt Or Car Seat Routinely? Yes Information not available 12/30/2023 Do You Have Smoke And Carbon Monoxide Detectors In Your Home? Yes Information not available 07/02/2023 How Much Tobacco Do You Smoke? 3+ PPD Information not available 07/03/2023 Do You Use Sunscreen Routinely? Yes Information not available 07/03/2023 Has Tobacco Cessation Counseling Been Provided? Yes Information not available 07/02/2023 On What Date Was Tobacco Cessation Counseling Provided? 06/29/2024 Information not available 06/29/2024 How Many Years Have You Smoked Tobacco? 15 Information not available 07/03/2023 Sex: Female Functional Status Question Answer Note LastModified by Organizat ion Details LastModified Time Do you use any illicit or recreational drugs? No Information not available 07/03/2023 Do you or have you ever used any other forms of tobacco or nicotine? No Information not available 07/03/2023 What is your level of alcohol consumption? None Information not available 07/03/2023 Are you currently employed? No Information not available 07/03/2023 Are you able to care for yourself independently? Yes Information not available 07/02/2023 What is your exercise level? None Information not available 12/30/2023 Mental Status Question Answer Note LastModified by Organization D etails LastModified Time Do you feel stressed (tense, restless, nervous, or anxious, or unable to sleep at night)? [id number] Information not available 07/03/2023 Family History Relationship Description Onset Age of this Age Resolved Age Notes LastModified by Organization Details LastModified Time Mother Asthma [email or web address] Not available 04/2023 14:00:50 Father Diabetes mellitus mebyma Not available 2023 14:00:55 Medical History Condition Response Coronary Artery Disease N Other N High Blood Pressure N Atrial Fibrillation N Kidney or Bladder Problems N Thyroid Problems N GI Problems N Depression Y COPD N Blood Clots N Skin Problems N Anemia N Heart Attack (NH) N Anxiety Disorder N Diabetes Y Muscle, Joint, or Bone Problems N Seizures/Epilepsy N Acid Reflux (GERD) N Cancer N Stroke N Asthma N Allergies N High Cholesterol N Hepatitis N Liver Disease N Headaches N Osteoporosis N Heart Failure N Gynecological History Statement/Question Response Menses Monthly N Current Control Method Other Obstetrics History GPAL:G 0 P 0 0 0 0 Immunizations Vaccine Type Date Status Note Provider Nam e and Address Organization Details Recorded Time COVID-19, mRNA, LNP-S, PF, 30 mcg/0.3 mL dose 4 completed ALEM [place], [place] [facility] 06/29/2024 16:19:50 Influenza, high-dose, trivalent, PF 4 completed Sigifredo Gamble [place], [place] [facility] 12/01/2023 10:08:11 MMR 5 completed ALEM [place] [facility] 06/25/2024 15:52:52 Influenza, recombinant, quadrivalent, PF 1 completed Sigifredo Gam[place] [facility] 06/29/2024 16:19:50 zoster recombinant 0 completed ALEM [place] [facility] 06/29/2024 16:19:50 zoster recombinant 0 completed Sigifredo Gam[place] [facility] 06/29/2024 16:19:50 Influenza, high-dose, quadrivalent, PF 2 completed Sigifredo Gam[place] [facility] 06/29/2024 16:19:50 Influenza, high-dose, quadrivalent, PF 3 completed Sigifredo Gam[place] [facility] 06/29/2024 16:19:50 COVID-19, mRNA, LNP-S, PF, 30 mcg/0.3 mL dose 1 completed Sigifredo Gam[place] [facility] 06/29/2024 16:19:50 COVID-19, mRNA, LNP-S, PF, 30 mcg/0.3 mL dose 1 completed Sigifredo Gam[place] [facility] 06/29/2024 16:19:50 COVID-19, mRNA, LNP-S, PF, 30 mcg/0.3 mL dose 1 completed Sigifredo Gam[place] [facility] 06/29/2024 16:19:50 Pneumococcal conjugate PCV20, polysaccharide [id number] conjugate, adjuvant, PF 2 completed Sigifredo Gam[place] [facility] 06/29/2024 16:19:50 COVID-19, mRNA, LNP-S, PF, 30 mcg/0.3 mL dose, demian-sucrose 2 completed Sigifredo Gam[place] [facility] 06/29/2024 16:19:50 COVID-19, mRNA, LNP-S, bivalent, PF, 30 mcg/0.3 mL dose 2 completed Sigifredo Gam[place] [facility] 06/29/2024 16:19:50 RSV, recombinant, protein subunit RSVpreF, adjuvant reconstituted, 0.5 mL, PF 3 completed Sigifredo Gam[place] [facility] 06/29/2024 16:19:50 COVID-19, mRNA, LNP-S, PF, demian-sucrose, 30 mcg/0.3 mL 4 completed ALEM [place] [facility] 06/29/2024 16:19:50 COVID-19, mRNA, LNP-S, PF, demian-sucrose, 30 mcg/0.3 mL 3 completed ALEM [place] [facility] 06/29/2024 16:19:50 influenza, unspecified formulation 3 completed Sigifredo Gam[place] [facility] 06/29/2024 16:19:50 influenza, unspecified formulation 3 completed ALEM [place] [facility] 06/29/2024 16:19:50 Pneumococcal conjugate PCV 13 7 completed [place]LE[place] [facility] 06/29/2024 16:19:51 Influenza, split virus, trivalent, preservative 4 completed [place]LE[place] [facility] 06/29/2024 16:19:51 Influenza, split virus, trivalent, preservative 3 completed [place] [facility] 06/29/2024 16:19:51 Influenza, split virus, quadrivalent, PF 9 completed [place]LE[place] [facility] 06/29/2024 16:19:51 Influenza, split virus, quadrivalent, PF 0 completed [place] [facility] 06/29/2024 16:19:51 Tdap 5 completed ALEM [place] [facility] 06/29/2024 16:21:28 Past Encounters Encounter ID Performer Location Encounter Start Date Encounter Closed Date Diagnosis/Indication Diagnosis SNOMED-CT Code Diagnosis ICD10 Code Diagnosis Note [id number] Keith Rosado MD [facility] [address] [place] [address] 07/03/2023 13:43:06 07/03/2023 15:39:51 Uncontrolled type 2 diabetes mellitus 679016560 E11.65 pt is on metformin, ozempic and tresiba therapy. due for a1c lab and refer to Endocrine. Mixed hyperlipidemia 267 492646 E78.2 due for fasting lipids. stable on statin therapy. Hypothyroidism 21788933 E03.9 stable on thyroid supplement , due for thyroid labs. Mixed anxi ety and depressive disorder 699426027 F41.8 stable on bupropion 100mg bid. Benign ess ential hypertension 4671299 I10 stable on lisinopril 20mg daily. Gastroesop hageal reflux disease without esophagitis 397977465 K21.9 stable on omeprazole 40mg daily. Long-term drug therapy 486895074 Z79.899 routine cbc, bmp and LFT panel due. Screening mammography 24 315230 Z12.31 Mammogram is due Amputated below knee 299 241418 Z89.519 right sided BKA [id number] Keith Rosado MD [facility] [address] [place] [address] 12/30/2023 14:37:49 12/30/2023 15:27:54 Body mass index 30+ - obesity 531140181 Z68.32 BMI is 32.8 Obesity 663180187 E66.9 discussed healthy diet, exercise, controllin g carbohydra riki and added sugars in the diet Uncontroll ed type 2 diabetes mellitus 475403225 E11.65 pt is on metformin, ozempic and tresiba therapy. Pt sees Endo on Jan 04 Mixed hyperlipidemia 267 875407 E78.2 triglyceri charlie were still high in july but sugars were also high. on crestor 20mg daily. Hypothyroidism 45178933 E03.9 stable on thyroid supplement Mixed anxi ety and depressive disorder 432707945 F41.8 stable on bupropion 100mg bid. Benign ess ential hypertension 8761683 I10 stable on lisinopril 20mg daily. Gastroesop hageal reflux disease without esophagitis 923875859 K21.9 stable on omeprazole 40mg daily. Amputated below knee 299 915293 Z89.519 right sided BKA Long-term drug therapy 876021186 Z79.899 Labs are up-to-date from Dr. James Renal diso rder due to type 2 diabetes mellitus 790947146 E11.[address] routinely and just had labs end of this week. Neuropathy due to diabetes mellitus 543951574 E11.40 on gabapentin for neuropathy . Stable Insulin pump present 450 040812 Z96.[address] she got the pump about 6 weeks ago. [id number] Keith Rosado MD [facility] - Zeus Gonzales [address] [place] [address] 06/29/2024 14:16:01 06/29/2024 15:28:50 Body mass index 30+ - obesity 972932194 Z68.32 BMI is 32.8 Obese class I 0626586376 61626 E66.811 discussed healthy diet, exercise, controllin g carbohydra riki and added sugars in the diet Uncontroll ed type 2 diabetes mellitus 724756358 E11.65 pt is on metformin, ozempic and tresiba therapy. seeing endocrinol ogy now. 7.4% a1c Renal diso rder due to type 2 diabetes mellitus 618765103 E11.[address] routinely and just had labs end of this week. sees provider named kate. Neuropathy due to diabetes mellitus 209742962 E11.40 on gabapentin for neuropathy . Stable Insulin pump present 450 346010 Z96.[address] she got the pump about 6 weeks ago. Mixed hyperlipidemia 267 948642 E78.2 on crestor 20mg daily. Benign ess ential hypertension 9606890 I10 stable on lisinopril 20mg daily. Hypothyroidism 93846415 E03.9 stable on thyroid supplement Mixed anxi ety and depressive disorder 163598613 F41.8 boost to bupropion 150mg bid for added depression management . Gastroesop hageal reflux disease without esophagitis [id number] K21.9 stable on omeprazole 40mg daily. Amputated below knee [id number] Z89.519 right sided BKA Long-term drug therapy [id number] Z79.899 Labs are up-to-date from Dr. James History of polyp of colon [id number] Z86.0100 Patient is due for follow-up colonoscop y screening with a history of colon polyps Positive s creening for depression on PHQ-9 (Patient Health Questionnaire 9) [id number] 13009 Z13.31 Patient scored positive screening on exam today. Her Wellbutrin has been boosted 150 mg twice daily Health Concerns Section Related Observation LastModified by Organization Detai ls LastModified Time None Recorded Concern Status LastModified by Organization Details LastModified Time None Recorded Advance Directives Directive N: Payers Insurance Date Sequence Insurance Name Policy Number Policy Brown Covered Member ID Brown Member ID Guarantor Name 06/29/2024 2 [place] Mikala Sahu [id number] Mikala Sahu 09/09/2024 1 [facility] (MEDICARE REPLACEMENT/AD VANTAGE - PPO) [id number] Mikala Sahu [id number] iMkala Sahu 07/14/2024 2 [place] WHEN MED[place]ARE OR [place]ICARE REPLACEMENT PRIMARY) Mikala Sahu [id number] Mikala Sahu 07/14/2024 2 [place] [employer] [employer] Mikala Sahu [id number] Mikala Sahu OBGyn Episode No OBEpisode recorded.
--- OUTSIDE RECORDS SUMMARY | 2024-09-29 00:14 | XMS_ITS | Patient Health Record ---
Author Organization [facility] Address [id number] [place] [id number] Care Team Providers Care Sap Integration Architect Name Role Phone Yvonne James Primary Care Provider Migration, Provider Unavailable Unavailable Meri Puentes Unavailable [phone] Allergies Allergen (clinical drug ingredient) Drug/Non Drug Allergy documented on EMR Reaction Allergy Type Onset Date Status DORVASET (uncoded) Unknown Allergy A ctive amoxicillin / clavulanate Augmentin hives Drug Allergy Active Results Component Value Reference Range Flag Notes COMPREHENSIVE METABOLIC PANE L Reviewed date:10/13/2023 12:54:07 PM Interpretation: Performing Lab:ND, [facility], [address] [place], [address] Coty Wang MD Notes/Report: FASTING:YES FASTING: YES Fasting reference interval For someone without known diabetes, a glucose value >125 mg/dL indicates that they may have diabetes and this should be confirmed with a follow-up test. GLUCOSE 301 65-99 mg/dL H UREA NITROGEN (BUN) 23 7-25 mg/dL N CREATININE 1.33 0.50-1.05 mg/dL H EGFR 44 > OR = 60 mL/min/1.73m2 L BUN/CREATININE RATIO 17 6-22 (calc) N SODIUM 133 135-146 mmol/L L POTASSIUM 4.6 3.5-5.3 mmol/L N CHLORIDE 100 98-110 mmol/L N CARBON DIOXIDE 24 20-32 mmol/L N CALCIUM 9.1 8.6-10.4 mg/dL N PROTEIN, TOTAL 6.2 6.1-8.1 g/dL N ALBUMIN 3.9 3.6-5.1 g/dL N GLOBULIN 2.3 1.9-3.7 g/dL (calc) N ALBUMIN/GLOBULIN RATIO 1.7 1.0-2.5 (calc) N BILIRUBIN, TOTAL 0.4 0.2-1.2 mg/dL N ALKALINE PHOSPHATASE 66 37-153 U/L N AST 10 10-35 U/L N ALT 10 6-29 U/L N PROTEIN, TOTAL AND PROTEIN E LECTROPHORESIS W/ REFL KOTA Reviewed date:10/22/2023 03:36:20 PM Interpretation: Performing Lab:ANNEMARIE [facility], [address] [place], [address] Coty Wang MD Notes/Report: FASTING:YES FASTING: YES Hypogammaglobulinemia may be seen in early or evolving lymphoproliferative disorders, acquired or congenital immune deficiencies, immunosuppressive therapy and light chain disease. Consider urine protein electrophoresis, urine immunofixation and/or free light chains if clinically indicated. PROTEIN, TOTAL 6.2 6.1-8.1 g/dL N ALBUMIN 3.8 3.8-4.8 g/dL N ALPHA 1 GLOBULIN 0.2 0.2-0.3 g/dL N ALPHA 2 GLOBULIN 0.7 0.5-0.9 g/dL N BETA 1 GLOBULIN 0.4 0.4-0.6 g/dL N BETA 2 GLOBULIN 0.3 0.2-0.5 g/dL N GAMMA GLOBULIN 0.7 0.8-1.7 g/dL L T3, FREE Reviewed date:10/13/2023 12:54:07 PM Interpretation: Performing Lab:ANNEMARIE [facility], [address] [place], [address] Coty Wang MD Notes/Report: FASTING:YES FASTING: YES T3, FREE 2.9 2.3-4.2 pg/mL N HEMOGLOBIN A1c Reviewed date:10/22/2023 03:37:36 PM Interpretation: Performing Lab:[facility]RIS [facility], [address], [place], [address] Coty Wang Notes/Report: FASTING:YES FASTING: YES For someone without known diabetes, a hemoglobin A1c value of 6.5% or greater indicates that they may have diabetes and this should be confirmed with a follow-up test. For someone with known diabetes, a value <7% indicates that their diabetes is well controlled and a value greater than or equal to 7% indicates suboptimal control. A1c targets should be individualized based on duration of diabetes, age, comorbid conditions, and other considerations. Currently, no consensus exists regarding use of hemoglobin A1c for diagnosis of diabetes for children. This test was performed on the Taina yahir c503 platform. Effective 05/19/23, a change in test platforms from the [employer] to the Taina yahir c503 may have shifted HbA1c results compared to historical results. Based on laboratory validation testing conducted at [facility], the Taina platform relative to the Hurst platform had an average increase in HbA1c value of < or = 0.3%. This difference is within accepted variability established by the National Glycohemoglobin Standardization Program. Note that not all individuals will have had a shift in their results and direct comparisons between historical and current results for testing conducted on different platforms is not recommended. HEMOGLOBIN A1c 10.4 <5.7 % of total Hgb H CBC (INCLUDES DIFF/PLT) Reviewed date:10/13/2023 08:40:13 PM Interpretation: Performing Lab:ANNEMARIE, [facility], [address], [place], [address] Coty Wang MD Notes/Report: FASTING:YES FASTING: YES WHITE BLOOD CELL COUNT 5.5 3.8-10.8 Thousand/uL N RED BLOOD CELL COUNT 3.70 3.80-5.10 Million/uL L HEMOGLOBIN 11.1 11.7-15.5 g/dL L HEMATOCRIT 34.8 35.0-45.0 % L MCV 94.1 80.0-100.0 fL N MCH 30.0 27.0-33.0 pg N MCHC 31.9 32.0-36.0 g/dL L RDW 12.2 11.0-15.0 % N PLATELET COUNT 238 140-400 Thousand/uL N MPV 11.1 7.5-12.5 fL N ABSOLUTE NEUTROPHILS 3064 1538-5090 cells/uL N ABSOLUTE LYMPHOCYTES 6486 513-4158 cells/uL N ABSOLUTE MONOCYTES 539 200-950 cells/uL N ABSOLUTE EOSINOPHILS 99 15-500 cells/uL N ABSOLUTE BASOPHILS 50 0-200 cells/uL N NEUTROPHILS 55.7 N LYMPHOCYTES 31.8 N MONOCYTES 9.8 N EOSINOPHILS 1.8 N BASOPHILS 0.9 N MICROALBUMIN, RANDOM URINE ( W/CREATININE) Reviewed date:10/13/2023 12:54:07 PM Interpretation: Performing Lab:Sudheer SHARPE, [address] [place], [address] Coty Wang MD Notes/Report: FASTING:YES FASTING: YES Reference Range: Reference Range Not established The ADA defines abnormalities in albumin excretion as follows: Albuminuria Category Result (mg/g creatinine) Normal to Mildly increased <30 Moderately increased 30-299 Severely increased > OR = 300 The ADA recommends that at least two of three specimens collected within a 3-6 month period be abnormal before considering a patient to be within a diagnostic category. CREATININE, RANDOM URINE 102 20-275 mg/dL N ALBUMIN, URINE 2.4 See Note: mg/dL N ALBUMIN/CREATININE RATIO, RANDOM URINE 24 <30 mg/g creat N IRON AND TOTAL IRON BINDING CAPACITY Reviewed date:10/13/2023 12:54:07 PM Interpretation: Performing Lab:Sudheer SHARPE, [address] [place], [phone] Coty Wang MD Notes/Report: FASTING:YES FASTING: YES IRON, TOTAL 76 45-160 mcg/dL N IRON BINDING CAPACITY 326 250-450 mc g/dL (calc) N % SATURATION 23 16-45 % (calc) N LIPID PANEL Reviewed date:10/27/2023 08:57:49 AM Interpretation: Performing Lab:Sudheer SHARPE, [address] [place], [address] Coty Wang MD Notes/Report: FASTING:YES FASTING: YES If a non-fasting specimen was collected, consider repeat triglyceride testing on a fasting specimen if clinically indicated. Buenrostro et al. J. of Clin. Lipidol. 2015;9:129-169. There is increased risk of pancreatitis when the triglyceride concentration is very high (> or = 500 mg/dL, especially if > or = 1000 mg/dL). Porter et al. J. of Clin. Lipidol. 2015;9:129-169. LDL cholesterol not calculated. Triglyceride levels greater than 400 mg/dL invalidate calculated LDL results. Reference range: <100 Desirable range <100 mg/dL for primary prevention; <70 mg/dL for patients with CHD or diabetic patients with > or = 2 CHD risk factors. LDL-C is now calculated using the David calculation, which is a validated novel method providing better accuracy than the Friedewald equation in the estimation of LDL-C. Perry ÁLVAREZ et al. ANGELO. 2013;310(19): 9168-8700 (http://education.AppwoRx/faq/RHV851) For patients with diabetes plus 1 major ASCVD risk factor, treating to a non-HDL-C goal of <100 mg/dL (LDL-C of <70 mg/dL) is considered a therapeutic option. CHOLESTEROL, TOTAL 132 <200 mg/dL N HDL CHOLESTEROL 28 > OR = 50 mg/dL L TRIGLYCERIDES 533 <150 mg/dL H CHOL/HDLC RATIO 4.7 <5.0 (calc) N NON HDL CHOLESTEROL 104 <130 mg/dL (calc) N PROTEIN, TOTAL AND PROTEIN E LECTROPHORESIS, RANDOM URINE Reviewed date:10/13/2023 12:54:07 PM Interpretation: Performing Lab:ANNEMARIE [facility], [address] [place], [address] Coty Wang MD Notes/Report: FASTING:YES FASTING: YES Agarose electrophoresis of urine reveals albumin. No abnormal protein is observed. The supplier of the testing reagents for this assay has changed. Detection of small monoclonal proteins may vary by test system. Urine immunofixation is suggested if clinically indicated and not already ordered. CREATININE, RANDOM URINE 102 20-275 mg/dL N PROTEIN/CREATININE RATIO 157 24-184 mg/g creat N PROTEIN/CREATININE RATIO 0.157 0.024-0 .184 mg/mg creat N PROTEIN, TOTAL, RANDOM UR 16 5-24 mg/dL N ALBUMIN 100 [id number] 0 [id number] 0 BETA GLOBULINS 0 GAMMA GLOBULINS 0 T4, FREE Reviewed date:10/13/2023 12:54:07 PM Interpretation: Performing Lab:NANEMARIE [facility], [address] [place], [address] Coty Wang MD Notes/Report: FASTING:YES FASTING: YES T4, FREE 1.4 0.8-1.8 ng/dL N TSH Reviewed date:10/13/2023 12:54:07 PM Interpretation: Performing Lab:ANNEMARIE [facility], [address] [place], [address] Coty Wang MD Notes/Report: FASTING:YES FASTING: YES TSH 1.14 0.40-4.50 mIU/L N COMPREHENSIVE METABOLIC PANE L Reviewed date:02/12/2024 08:07:25 AM Interpretation: Performing Lab:ANNEMARIE [facility], [address], [place], [address] Coty Wang MD Notes/Report: FASTING:YES FASTING: YES Fasting reference interval For someone without known diabetes, a glucose value >125 mg/dL indicates that they may have diabetes and this should be confirmed with a follow-up test. GLUCOSE 167 65-99 mg/dL H UREA NITROGEN (BUN) 22 7-25 mg/dL N CREATININE 1.11 0.50-1.05 mg/dL H EGFR 54 > OR = 60 mL/min/1.73m2 L BUN/CREATININE RATIO 20 6-22 (calc) N SODIUM 140 135-146 mmol/L N POTASSIUM 4.2 3.5-5.3 mmol/L N CHLORIDE 107 98-110 mmol/L N CARBON DIOXIDE 24 20-32 mmol/L N CALCIUM 9.5 8.6-10.4 mg/dL N PROTEIN, TOTAL 6.6 6.1-8.1 g/dL N ALBUMIN 4.1 3.6-5.1 g/dL N GLOBULIN 2.5 1.9-3.7 g/dL (calc) N ALBUMIN/GLOBULIN RATIO 1.6 1.0-2.5 (calc) N BILIRUBIN, TOTAL 0.4 0.2-1.2 mg/dL N ALKALINE PHOSPHATASE 54 37-153 U/L N AST 12 10-35 U/L N ALT 11 6-29 U/L N T3, FREE Reviewed date:02/12/2024 08:07:25 AM Interpretation: Performing Lab:ANNEMARIE [facility], [address], [place], [address] Coty Wang MD Notes/Report: FASTING:YES FASTING: YES T3, FREE 3.2 2.3-4.2 pg/mL N HEMOGLOBIN A1c Reviewed date:02/12/2024 08:07:25 AM Interpretation: Performing Lab:[facility]IS [facility], [address] [place], [address] Coty Wang Notes/Report: FASTING:YES FASTING: YES For someone without known diabetes, a hemoglobin A1c value of 6.5% or greater indicates that they may have diabetes and this should be confirmed with a follow-up test. For someone with known diabetes, a value <7% indicates that their diabetes is well controlled and a value greater than or equal to 7% indicates suboptimal control. A1c targets should be individualized based on duration of diabetes, age, comorbid conditions, and other considerations. Currently, no consensus exists regarding use of hemoglobin A1c for diagnosis of diabetes for children. HEMOGLOBIN A1c 7.4 <5.7 % of total Hgb H CBC (INCLUDES DIFF/PLT) Reviewed date:02/12/2024 08:07:26 AM Interpretation: Performing Lab:ANNEMARIE [facility], [address] [place], [address] Coty Wang MD Notes/Report: FASTING:YES FASTING: YES For adults, a slight decrease in the calculated MCHC value (in the range of 30 to 32 g/dL) is most likely not clinically significant; however, it should be interpreted with caution in correlation with other red cell parameters and the patient's clinical condition. WHITE BLOOD CELL COUNT 7.0 3.8-10.8 Thousand/uL N RED BLOOD CELL COUNT 3.68 3.80-5.10 Million/uL L HEMOGLOBIN 11.3 11.7-15.5 g/dL L HEMATOCRIT 34.7 35.0-45.0 % L MCV 94.3 80.0-100.0 fL N MCH 30.7 27.0-33.0 pg N MCHC 32.6 32.0-36.0 g/dL N RDW 12.8 11.0-15.0 % N PLATELET COUNT 279 140-400 Thousand/uL N MPV 10.6 7.5-12.5 fL N ABSOLUTE NEUTROPHILS 5005 5420-2899 cells/uL N ABSOLUTE LYMPHOCYTES 6765 671-8297 cells/uL N ABSOLUTE MONOCYTES 469 200-950 cells/uL N ABSOLUTE EOSINOPHILS 28 15-500 cells/uL N ABSOLUTE BASOPHILS 63 0-200 cells/uL N NEUTROPHILS 71.5 N LYMPHOCYTES 20.5 N MONOCYTES 6.7 N EOSINOPHILS 0.4 N BASOPHILS 0.9 N MICROALBUMIN, RANDOM URINE ( W/CREATININE) Reviewed date:02/12/2024 08:07:26 AM Interpretation: Performing Lab:ANNEMARIE, [facility], [address] [facility] [place], [address] Coty Wang MD Notes/Report: FASTING:YES FASTING: YES Reference Range: Reference Range Not established The ADA defines abnormalities in albumin excretion as follows: Albuminuria Category Result (mg/g creatinine) Normal to Mildly increased <30 Moderately increased 30-299 Severely increased > OR = 300 The ADA recommends that at least two of three specimens collected within a 3-6 month period be abnormal before considering a patient to be within a diagnostic category. CREATININE, RANDOM URINE 77 20-275 mg/dL N ALBUMIN, URINE 4.8 See Note: mg/dL N ALBUMIN/CREATININE RATIO, RANDOM URINE 62 <30 mg/g creat H LIPID PANEL Reviewed date:02/12/2024 08:07:26 AM Interpretation: Performing Lab:ANNEMARIE [facility], [address] [place], [address] Coty Wang MD Notes/Report: FASTING:YES FASTING: YES If a non-fasting specimen was collected, consider repeat triglyceride testing on a fasting specimen if clinically indicated. Porter et al. J. of Clin. Lipidol. 2015;9:129-169. Reference range: <100 Desirable range <100 mg/dL for primary prevention; <70 mg/dL for patients with CHD or diabetic patients with > or = 2 CHD risk factors. LDL-C is now calculated using the Perry-Becky calculation, which is a validated novel method providing better accuracy than the Friedewald equation in the estimation of LDL-C. Perry SS et al. ANGELO. 2013;310(19): 3888-2994 (http://education.AppwoRx/faq/HFR270) For patients with diabetes plus 1 major ASCVD risk factor, treating to a non-HDL-C goal of <100 mg/dL (LDL-C of <70 mg/dL) is considered a therapeutic option. CHOLESTEROL, TOTAL 143 <200 mg/dL N HDL CHOLESTEROL 39 > OR = 50 mg/dL L TRIGLYCERIDES 256 <150 mg/dL H LDL-CHOLESTEROL 70 N CHOL/HDLC RATIO 3.7 <5.0 (calc) N NON HDL CHOLESTEROL 104 <130 mg/dL (calc) N T4, FREE Reviewed date:02/12/2024 08:07:26 AM Interpretation: Performing Lab:[facility], [address], [place], [address] Coty Wang MD Notes/Report: FASTING:YES FASTING: YES T4, FREE 1.3 0.8-1.8 ng/dL N TSH Reviewed date:02/12/2024 08:07:26 AM Interpretation: Performing Lab:[facility], [address], [place], [address] Coty Wang MD Notes/Report: FASTING:YES FASTING: YES TSH 0.37 0.40-4.50 mIU/L L CORTISOL, TOTAL (367) Reviewed date:04/17/2024 08:33:16 PM Interpretation: Performing Lab:Sudheer SHARPE-[address], [place] Coty Wang MD Notes/Report: FASTING:YES FASTING: YES CORTISOL, TOTAL 1.5 L Reference Range: For 8 a.m.(7-9 a.m.) Specimen: 4.0-22.0 Reference Range: For 4 p.m.(3-5 p.m.) Specimen: 3.0-17.0 * Please interpret above results accordingly * DEXAMETHASONE ([id number]) Reviewed date:05/01/2024 12:36:34 PM Interpretation: Performing Lab:CHAS [facility]elia [facility],[address] [address] [facility] Peoriamara OcampoCtvnhxoznuUI[address] Cassi Belcher MD,PhD,JULITA Notes/Report: FASTING:YES FASTING: YES DEXAMETHASONE 295 It has not been cleared or approved by FDA. This assay has for clinical purposes. 1 mg dexamethasone overnight: 180-550 ng/dL (8:00-10:00 AM) This test was developed and its analytical performance Baseline: Less than 20 ng/dL characteristics have been determined by [facility]. Reference Ranges for Dexamethasone: been validated pursuant to the CLIA regulations and is used ACTH, PLASMA (211) Reviewed date:06/30/2024 09:30:15 AM Interpretation: Performing Lab:Sudheer JIMENEZ/Velia HernándezEdgar [id number], [id number] Giovanni Ruiz M.D.,PhD Notes/Report: COLLECTION KIT GIVEN TO PATIENT. PATIENT ADVISED TO RETURN. URINE VOLUME: 2000 ACTH, PLASMA 14 6-50 pg/mL between 7am-10am. Reference range applies only to specimens collected DHEA SULFATE (402) Reviewed date:06/26/2024 05:13:46 PM Interpretation: Performing Lab:Sudheer SHARPE-[address], [place] Coty Wang MD Notes/Report: COLLECTION KIT GIVEN TO PATIENT. PATIENT ADVISED TO RETURN. URINE VOLUME: 2000 DHEA SULFATE 19 9-118 mcg/dL N .HEMOGLOBIN A1c (496) Reviewed date:06/26/2024 05:13:46 PM Interpretation: Performing Lab:Sudheer [facility]ZC[facility]ettSqkuz[address], [facility]of[facility]Z[address] Coty Wang Notes/Report: COLLECTION KIT GIVEN TO PATIENT. PATIENT ADVISED TO RETURN. URINE VOLUME: 2000 HEMOGLOBIN A1c 7.5 <5.7 % of total Hgb H For someone with known diabetes, a value <7% indicates other considerations. hemoglobin A1c for diagnosis of diabetes for children. greater than or equal to 7% indicates suboptimal duration of diabetes, age, comorbid conditions, and Currently, no consensus exists regarding use of diabetes and this should be confirmed with a follow-up value of 6.5% or greater indicates that they may have For someone without known diabetes, a hemoglobin A1c test. control. A1c targets should be individualized based on that their diabetes is well controlled and a value .CBC (INCLUDES DIFF/PLT) (63 99) Reviewed date:06/26/2024 05:13:46 PM Interpretation: Performing Lab:Sudheer SHARPE-[address], [place] Coty Wang MD Notes/Report: COLLECTION KIT GIVEN TO PATIENT. PATIENT ADVISED TO RETURN. URINE VOLUME: 2000 WHITE BLOOD CELL COUNT 4.8 3.8-10.8 Thousand/uL N RED BLOOD CELL COUNT 3.63 3.80-5.10 Million/uL L HEMOGLOBIN 11.0 11.7-15.5 g/dL L HEMATOCRIT 34.8 35.0-45.0 % L MCV 95.9 80.0-100.0 fL N MCH 30.3 27.0-33.0 pg N MCHC 31.6 32.0-36.0 g/dL L For adults, a slight decrease in the calculated MCHC value (in the range of 30 to 32 g/dL) is most likely condition. red cell parameters and the patient's clinical interpreted with caution in correlation with other not clinically significant; however, it should be RDW 13.0 11.0-15.0 % N PLATELET COUNT 236 140-400 Thousand/uL N MPV 9.8 7.5-12.5 fL N ABSOLUTE NEUTROPHILS 2597 7648-5880 cells/uL N ABSOLUTE LYMPHOCYTES 4099 829-2836 cells/uL N ABSOLUTE MONOCYTES 437 200-950 cells/uL N ABSOLUTE EOSINOPHILS 120 15-500 cells/uL N ABSOLUTE BASOPHILS 48 0-200 cells/uL N NEUTROPHILS 54.1 N LYMPHOCYTES 33.3 N MONOCYTES 9.1 N EOSINOPHILS 2.5 N BASOPHILS 1.0 N .COMPREHENSIVE METABOLIC DUNLAP (87141) [facility] Reviewed date:06/26/2024 05:13:46 PM Interpretation: Performing Lab:ANNEMARIE [facility]-[id number] [facility], [place] Coty Wang MD Notes/Report: COLLECTION KIT GIVEN TO PATIENT. PATIENT ADVISED TO RETURN. URINE VOLUME: 2000 GLUCOSE 159 65-99 mg/dL H follow-up test. diabetes and this should be confirmed with a value >125 mg/dL indicates that they may have Fasting reference interval For someone without known diabetes, a glucose UREA NITROGEN (BUN) 24 7-25 mg/dL N CREATININE 1.30 0.50-1.05 mg/dL H EGFR 45 > OR = 60 mL/min/1.73m2 L BUN/CREATININE RATIO 18 6-22 (calc) N SODIUM 140 135-146 mmol/L N POTASSIUM 4.3 3.5-5.3 mmol/L N CHLORIDE 110 98-110 mmol/L N CARBON DIOXIDE 24 20-32 mmol/L N CALCIUM 9.1 8.6-10.4 mg/dL N PROTEIN, TOTAL 6.4 6.1-8.1 g/dL N ALBUMIN 4.2 3.6-5.1 g/dL N GLOBULIN 2.2 1.9-3.7 g/dL (calc) N ALBUMIN/GLOBULIN RATIO 1.9 1.0-2.5 (calc) N BILIRUBIN, TOTAL 0.4 0.2-1.2 mg/dL N ALKALINE PHOSPHATASE 42 37-153 U/L N AST 16 10-35 U/L N ALT 13 6-29 U/L N CORTISOL, LC/MS, SALIVA, 2 S AMPLES ([id number]) Reviewed date:07/10/2024 06:50:38 PM Interpretation: Performing Lab:[facility]/Velia [facility],[address] [facility] HospitalCA[address] Cassi Belcher MD,PhD,JULITA Notes/Report: URINE VOLUME: 750/24 DRAW DATE 1 06/27/2024 DRAW TIME 1 12:00 PM CORTISOL, SALIVA SAMPLE 1 0.13 This test was developed and its analytical performance 4-6 PM: < OR = 0.15 mcg/dL It has not been cleared or approved by the FDA. This assay 10 PM-1 AM: < OR = 0.09 mcg/dL 8-10 AM: 0.04-0.56 mcg/dL used for clinical purposes. characteristics have been determined by [facility]. noon-2 PM: < OR = 0.21 mcg/dL has been validated pursuant to the CLIA regulations and is DRAW DATE 2 06/28/2024 DRAW TIME 2 12:00 PM CORTISOL, SALIVA SAMPLE 2 0.28 noon-2 PM: < OR = 0.21 mcg/dL 10 PM-1 AM: < OR = 0.09 mcg/dL has been validated pursuant to the CLIA regulations and is It has not been cleared or approved by the FDA. This assay used for clinical purposes. This test was developed and its analytical performance 8-10 AM: 0.04-0.56 mcg/dL 4-6 PM: < OR = 0.15 mcg/dL characteristics have been determined by [facility]. CORTISOL, FREE, 24 HOUR URIN E ([id number]) Reviewed date:07/03/2024 06:55:34 PM Interpretation: Performing Lab:EZ, [facility]/Velia [facility],[address] [address] [place] NdlrwamvcpDP[address] Cassi Belcher MD,PhD,JULITA Notes/Report: URINE VOLUME: 750/24 TOTAL VOLUME 750 CORTISOL, FREE, URINE 19.7 4.0-50.0 mcg/24 h CORTISOL, FREE, URINE 33.3 ADULTS: 3.1-42.3 Reference Range: CREATININE, URINE 0.59 0.50-2.15 g/24 h characteristics have been determined by [facility]. has been validated pursuant to the CLIA regulations and is It has not been cleared or approved by the FDA. This assay This test was developed and its analytical performance used for clinical purposes. Reason For Referral Reason Nephrology Consult Diagnosis 1 Chronic kidney disea se, unspecified (N18.9) Diagnosis 2 Abnormal results of kidney function studies (R94.4) Referral Organization [facility] Dr. James Referring Provider First Name Yvonne Referring Provider Last Name Jacob Referring Provider Speciality Endocrinol ogleonor Referral Priority Routine Medications Medication SIG (Take, Route, Frequency, Duration) Notes Start Date End Date Status Ozempic (0.25 or 0.5 MG/DOSE) 2 MG/3ML Solution Pen-injector INJECT 0.5MG SUBCUTANEOUSLY ONCE WEEKLY; Duration: 84 Days Active Omeprazole 40 MG Capsule Delayed Release 1 cap(s) orally once a day Active buPROPion HCl 100 MG Tablet 1 tab(s) orally 2 times a day Active Gabapentin 300 MG Capsule 1 capsule Orally three times daily; Duration: 90 days 02/12/2024 Active Ibuprofen 800 MG Tablet 1 tab(s) orally 3 times a day Active Rosuvastatin Calcium 20 MG Tablet 1 tab(s) orally once a day Active Lisinopril 20 MG Tablet ; Duration: 90 Days Active Fenofibrate 145 MG Tablet TAKE 1 TABLET BY MOUTH ONCE DAILY AT BEDTIME; Duration: 90 Active Ozempic (1 MG/DOSE) 4 MG/3ML Solution Pen-injector INJECT 1MG ONCE A WEEK; Duration: 84 Active Dexcom G7 Sensor - Miscellaneous change sensor every 10 days; Duration: 90 days 03/05/2024 Active Farxiga 5 MG Tablet 1 tab(s) orally once a day; Duration: 90 days 11/13/2023 Active Levothyroxine Sodium 112 MCG Tablet TAKE 1 TABLET BY MOUTH ONCE DAILY ONE HOUR BEFORE EATING; Duration: 30 Active HumaLOG 100 UNIT/ML Solution as directed subcutaneously 11/13/2023 Active GVOKE HYPOPEN TWO PACK 1 MG/0.2 ML SOLUTION INJECT 1 MG SUBCUTANEOUSLY ONCE NEEDED FOR SUGARS UNDER 50 MG/DL; Duration: 1 DAYS *Please review for potential replacement for e-prescription and drug interaction check* *Reorder from [employer] for eRx and Interaction Alerts* 01/05/2024 Active Social History Section Notes: Non-Contributory Non-Contributory Non-Contributory Problems Problem Type SNOMED Code ICD Code Onset Dates Problem Status W/U Status Risk Notes Problem Hypothyroidism (35377827) Hypothyroidism, unspecified (E03.9) Active confirmed Problem Diabetic peripheral neuropathy associated with type 2 diabetes mellitus (5189041792218) Type 2 diabetes mellitus with diabetic neuropathy, unspecified (E11.40) Active confirmed Problem Hyperglycemia due to type 2 diabetes mellitus ([id number]) Type 2 diabetes mellitus with hyperglycemia (E11.65) Active confirmed Problem Disorder of adrenal gland (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) Disorder of adrenal gland, 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) Active confirmed Problem Obesity (453286668) Obesity, unspecified (E66.9) Active confirmed Problem Pure hyperglyceridemia (272140193) Pure hyperglyceridemia (E78.1) Active confirmed Problem Mononeuropathy of lower limb (333935930) 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) Active confirmed Problem Essential hypertension (25195399) Essential (primary) hypertension (I10) Active confirmed Problem Chronic kidney disease (433048904) Chronic kidney disease, unspecified (N18.9) Active confirmed Problem Long-term current use of insulin (532487259) 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) Active confirmed Problem Amputated below knee (588744764) Acquired absence of right leg below knee (Z89.511) Active confirmed Problem Long-term current use of insulin (244522659) Insulin long-term use (Z79.4) Active confirmed Vital Signs Heart Rate 86 /min 08/03/2024 Oximetry 92 % 08/03/2024 Height-cm 165.1 cm 08/03/2024 Blood pressure diastolic 69 mm Hg 08/03/2024 Weight-kg 83.92 kg 08/03/2024 Height 65 in 08/03/2024 Blood pressure systolic 138 mm Hg 08/03/2024 Weight 185.0 lbs 08/03/2024 BMI 30.78 kg/m2 08/03/2024 Encounters Encounter Location Date Provider Diagnosis [address] [id number] 01/17/2024 Provider Migration Type 2 diabetes mellitus with diabetic neuropathy, unspecified E11.40 and Obesity, unspecified E66.[address] [address] 11/13/2023 Meri Puentes Pure hyperglyceridem ia E78.1 ; Abnormal results of kidney function studies R94.4 ; Anemia, unspecified D64.9 ; Type 2 diabetes mellitus with hyperglycemia E11.65 ; Hypo-osmolality and hyponatremia E87.1 ; Hyperglycemia, unspecified R73.9 ; Chronic kidney disease, unspecified N18.9 ; Hypothyroidism, unspecified E03.9 and Pain in left hand M79.[address] [address] 11/20/2023 Meri Puentes Type 2 diabetes abdias itus with diabetic neuropathy, unspecified E11.40 ; Type 2 diabetes mellitus with hyperglycemia E11.65 ; Essential (primary) hypertension I10 ; Acquired absence of right leg below knee Z89.511 ; Pure hyperglyceridemia E78.1 and Chronic kidney disease, unspecified N18.[address] [address] 11/27/2023 Meri Puentes Type 2 diabetes abdias itus with diabetic neuropathy, unspecified E11.40 ; Pure hyperglyceridemia E78.1 ; Chronic kidney disease, unspecified N18.9 and [facility] (current) use of insulin Z79.[address] [address] 12/04/2023 Meri Puentes Type 2 diabetes abdias itus with diabetic neuropathy, unspecified E11.40 ; Pure hyperglyceridemia E78.1 ; industrial controller (current) use of insulin Z79.4 and Obesity, unspecified E66.9 [facility] Dr. James [address] [place] [phone] 01/05/2024 Yvonne James Type 2 diabetes abdias itus with diabetic neuropathy, unspecified E11.40 ; Hypothyroidism, unspecified E03.9 ; Chronic kidney disease, unspecified N18.9 and Obesity, unspecified E66.[address] James [address] [place] [phone] 02/16/2024 Yvonne James Type 2 diabetes abdias itus with diabetic neuropathy, unspecified E11.40 ; Chronic kidney disease, unspecified N18.9 ; Obesity, unspecified E66.9 and Dietary counseling and surveillance Z71.[address] James [address] [place] [phone] 04/26/2024 Yvonne James Type 2 diabetes abdias itus with diabetic neuropathy, unspecified E11.40 ; [facility]FP (current) use of insulin Z79.4 ; Hypothyroidism, unspecified E03.9 ; Pure hyperglyceridemia E78.1 and Dietary counseling and surveillance Z71.[address] 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 and Insulin long-term use Z79.[address] [address] 10/09/2023 Yvonne James [address] [place] [phone] 10/13/2023 Yvonne James [address] [place] [phone] 10/20/2023 Yvonne HEBERT [facility] [address] [place] [phone] 10/27/2023 Yvonne James [address] [place] [phone] 10/27/2023 vYonne James [address] [place] [phone] 12/24/2023 Yvonne James AMMO [facility] [address] [place] [phone] 12/25/2023 Yvonne James Type 2 diabetes abdias itus with diabetic neuropathy, unspecified E11.40 AMMO [facility] [address] [place] [phone] 12/26/2023 Yvonne James [address] [place] [phone] 01/12/2024 Yvonne James [address] [place] [phone] 02/09/2024 Yvonne James Unspecified mononeuropathy of left lower limb G57.[address] James [address] [place] [phone] 02/16/2024 Yvonne James AMMO [facility] [address] [place] [phone] 03/05/2024 Yvonne James Type 2 diabetes abdias itus with diabetic neuropathy, unspecified E11.[address] James [address] [place] [phone] 03/30/2024 Yvonne James AMMO [facility] [address] [place] [phone] 07/21/2024 Yvonne James Type 2 diabetes abdias itus with hyperglycemia E11.65 AMMO [facility] [address] [place] [phone] 08/02/2024 Yvonne James AMMO [facility] [address] [place] [phone] 09/02/2024 Yvonne James Assessments Encounter Date Diagnosis (ICD Code) Assessment Notes Treatment Notes Treatment Clinical Notes Section Notes 12/04/2023 Type 2 diabetes mellitus with diabetic neuropathy, unspecified (ICD-10 - E11.40) 12/04/2023 Pure hyperglyceridemia (ICD-10 - E78.1) 08/03/2024 Hypothyroidism, unspecified (ICD-10 - E03.9) repeat thyroid panel prior to return visit h 08/03/2024 Type 2 diabetes mellitus with diabetic neuropathy, unspecified (ICD-10 - E11.40) Modify basal settings as follows: 2.5 u/hr at bedtime 2.4 u/hr during daytime continue 1:5 carb ratio Cortisol positive on DST testing, imaging negative, will start on recorlev / cortisol moses due to CKD and concern to start Mineralocorticoid moses which could further increase risk for CKD. She has dexcom sensor, in range 66% of time with no hypoglycemia ranging from 90 mg/dL up to 250 mg/dL with average of 210 mg/dL h 07/21/2024 Type 2 diabetes mellitus with hyperglycemia (ICD-10 - E11.65) 06/28/2024 Type 2 diabetes mellitus with diabetic neuropathy, unspecified (ICD-10 - E11.40) 06/28/2024 Type 2 diabetes mellitus with hyperglycemia (ICD-10 - E11.65) 04/26/2024 Type 2 diabetes mellitus with diabetic neuropathy, unspecified (ICD-10 - E11.40) 03/05/2024 Type 2 diabetes mellitus with diabetic neuropathy, unspecified (ICD-10 - E11.40) 02/16/2024 Type 2 diabetes mellitus with diabetic neuropathy, unspecified (ICD-10 - E11.40) 02/09/2024 Unspecified mononeuropathy of left lower limb (ICD-10 - G57.92) 01/17/2024 Type 2 diabetes mellitus with diabetic neuropathy, unspecified (ICD-10 - E11.40) 12/25/2023 Type 2 diabetes mellitus with diabetic neuropathy, unspecified (ICD-10 - E11.40) 11/27/2023 Type 2 diabetes mellitus with diabetic [...] current fenofibrate regimen as recommended by the dermatopathologist. Monitor for hair thinning and address potential side effects at the upcoming visit. 5. Insulin Pump Site Management - No reported issues with the pump site; patient has acquired an overpatch from [employer]. Plan: Persist with the current site management strategy and keep an eye out for any complications. 6. Follow-up Appointments Plan: Arrange a follow-up appointment with Katlyn for next with myself or with Dr. James in two weeks, based on the patient's preference. Encourage the patient to reach out if any concerns emerge prior to the next scheduled appointment. 11/27/2023 Pure hyperglyceridemia (ICD-10 - E78.1) 01/05/2024 Type 2 diabetes mellitus with diabetic neuropathy, unspecified (ICD-10 - E11.40) 11/20/2023 Type 2 diabetes mellitus with diabetic neuropathy, unspecified (ICD-10 - E11.40) 11/20/2023 Type 2 diabetes mellitus with hyperglycemia (ICD-10 - E11.65) -Pt educated that she will be stopping her manual insulin injections (both humalog and treseiba) d/t her insulin pump placed today. I will see her in 7-9 days for f/u. She is to call us or [email or web address] help # if she has any questions. -She was educated on what to do in the event of hypoglycemia - she has GVoke pens that was prescribed by MD James in [place]. 11/13/2023 Pure hyperglyceridemia (ICD-10 - E78.1) -Discontinue fenofibrate d/t renal impairment. -Tryglycerides elevated. Pt aware that this is related to how her diet reflects. -Inititate vascepa 1g BID. 11/13/2023 Abnormal results of kidney function studies (ICD-10 - R94.4) 11/13/2023 Anemia, unspecified (ICD-10 - D64.9) -Consider referral to hematology given no causation for anemia. Pt aware. Will discuss if repeat CBC remains with anemia. 11/20/2023 Essential (primary) hypertension (ICD-10 - I10) 11/27/2023 Chronic kidney disease, unspecified (ICD-10 - N18.9) 04/26/2024 MCFP (current) use of insulin (ICD-10 - Z79.4) 01/05/2024 Hypothyroidism, unspecified (ICD-10 - E03.9) 02/16/2024 Chronic kidney disease, unspecified (ICD-10 - N18.9) 06/28/2024 industrial controller (current) use of insulin (ICD-10 - Z79.4) 08/03/2024 Dietary counseling and surveillance (ICD-10 - Z71.3) Spent 15 minutes preventative counseling patient on dietary recommendations and changes in setting of hyperglycemia- need to restrict refined sugars and processed foods and incorporate up to 150 minutes of moderate level activity weekly. 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 Will plan to see patient back 1 month after starting therapy. h 04/26/2024 Hypothyroidism, unspecified (ICD-10 - E03.9) 11/27/2023 industrial controller (current) use of insulin (ICD-10 - Z79.4) 01/05/2024 Chronic kidney disease, unspecified (ICD-10 - [...] control her hyperglycemia and poorly controlled diabetes. 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 11/20/2023 Chronic kidney disease, unspecified (ICD-10 - N18.9) -Pt to f/u with [employer] today at 3pm after our appt. She will let us know what treatment develops with specialist. I asked her to ask [employer] input on her fenofibrate d/t renal impairment. She reports she is unable to tolerate Vesepa d/t diarrhea. 11/13/2023 Hyperglycemia, unspecified (ICD-10 - R73.9) -Will re-check labs in 6 weeks p insulin pump start. Pt aware. 11/13/2023 Chronic kidney disease, unspecified (ICD-10 - N18.9) 11/13/2023 Hypothyroidism, unspecified (ICD-10 - E03.9) 06/28/2024 Dietary counseling and surveillance (ICD-10 - Z71.3) Spent 15 minutes preventative counseling patient on dietary recommendations and changes in setting of hyperglycemia- need to restrict refined sugars and processed foods and incorporate up to 150 minutes of moderate level activity weekly. 11/13/2023 Pain in left hand (ICD-10 - [...] necessary referral documentation and recent labs to [facility]. Follow-up on referral [...] No episodes of hypoglycemia reported according to [employer] - A1c level in October was 10.4%, [...] Plan: Recommend downloading and using a carb manager private nimco for assistance with dosing. Continue patient [...] Dexcom or Omnipod pods become available at [facility]. Provide a copy of the patient's recent [...] examination and/or evaluation, counseling and educating the patient/family/caregiver, ordering medications, tests, or procedures, referring and communicating with other health lawn care technician, documenting clinical information in the electronic or other health record, independently interpreting results and communicating results to the patient/family/caregiver and care coordinating patient plan. Patient alert and oriented x 4 and aware of discussion noted above and in agreeance to plan in management of uncontrolled type 2 dM with high insulin requirements, screening for hypercortisolism and fatigue/hypothyroidism. 02/16/2024 Other Assessment and Plan: 1. Type [...] examination and/or evaluation, counseling and educating the patient/family/caregiver, ordering medications, tests, or procedures, referring and communicating with other health lawn care technician, documenting clinical information in the electronic or other health record, independently interpreting results and communicating results to the patient/family/caregiver and care coordinating patient plan. Patient alert and oriented x 4 and aware of discussion noted above and in agreeance to plan in management of insulin treated type 2 dM with CKD, on automated mode with omnipod 5 pump and dexcom G7 sensor. 04/26/2024 Other Assessment and Plan: Type 2 Diabetes MellitusPatient's A1c has improved to 7.4, indicating the best control in a long time, yet CGM shows 51% time in range, suggesting ongoing hyperglycemia.Reported one hypoglycemic episode (BG <70 mg/dL) in the last 6 months.Current blood glucose level is 139 mg/dL, with suspected insulin resistance possibly due to elevated cortisol levels. Adjust insulin pump settings as follows: 12 am to 12 pm: Increase from 2.2 to 2.3 units/hour 12 pm to 6 pm: Increase from 2.3 to 2.4 units/hour 6 pm to 12 am: Maintain at 2.3 units/hour Consider medication to reduce insulin resistance if cortisol levels are confirmed high. Repeat A1c and CMP in 2 months. Schedule a follow-up appointment in 2 months. Suspected HypercortisolismPrevious cortisol test was borderline at 2.4, considered positive in some studies.Patient reports sleep disturbances (up until 1 or 3 am) and increased anxiety recently, suggesting hypercortisolism as a potential cause of insulin resistance. Order urine and saliva cortisol tests. Order fasting blood test. If cortisol levels confirmed high, consider imaging studies. Discuss potential medications or surgical options (nodule removal) if hypercortisolism is confirmed. AnemiaRecent blood work indicates mild anemia, with no further details provided. Monitor hemoglobin levels with upcoming blood tests. Leg SorePatient mentions a sore on their leg, with no further details provided. Recommend follow-up with primary care physician. Note upcoming appointment with leg specialist in May or June. Follow-up:Encourage patient to contact the clinic if any new or worsening symptoms occur. Spent 25 minutes preparing to see the patient (ex review of tests/chart), obtaining and / or reviewing separately obtained history, performing a medically appropriate examination and/or evaluation, counseling and educating the patient/family/caregiver, ordering medications, tests, or procedures, referring and communicating with other health lawn care technician, documenting clinical information in the electronic or other health record, independently interpreting results and communicating results to the patient/family/caregiver and care coordinating patient plan. Patient alert and oriented x 4 and aware of discussion noted above and in agreeance to plan in management of uncontrolled type 2 DM/a1c 7.4%, weight gain, hypothyroidism, mixed dyslipidemia and concern for hypercortisolism causing insulin resistance. 06/28/2024 Other Assessment and Plan: 1. Type 2 Diabetes Mellitus- Continue insulin pump therapy with Humalog-increase to 2.5 u/hr overnight and 2.4 u/hr during day and continue 1:5 carb ratio and correction of 1:35 In range 66% of time with no hypoglycemia per CGM/glooko review- Continue Ozempic 1 mg subcutaneously weekly- Continue Farxiga 5 mg orally daily- Maintain CGM monitoring- Follow up in 6 weeks to review lab results and discuss further treatment 2. Hyperlipidemia- Continue rosuvastatin (dose not specified)- Continue fenofibrate (dose not specified) 3. Hypertension- Continue lisinopril (dose not specified) 4. Chronic Kidney Disease- Continue follow-up with dermatopathologist Dr. Arriaza 5. Hypothyroidism- Continue levothyroxine 112 mcg orally daily 6. Depression- Reassess effectiveness of bupropion therapy- Consider alternative treatment options at next follow-up 7. Neuropathic Pain- Reassess effectiveness of gabapentin therapy- Consider alternative treatment options at next follow-up 8. Suspected Adrenal Gland Issue- Schedule adrenal gland imaging at [facility]- Review spit and urine test results in approximately 7 days- Consider low-dose renal-friendly medication to block cortisol based on test results- Discuss findings and treatment options at 6-week follow-up appointment Spent 25 minutes preparing to see the patient (ex review of tests/chart), obtaining and / or reviewing separately obtained history, performing a medically appropriate examination and/or evaluation, counseling and educating the patient/family/caregiver, ordering medications, tests, or procedures, referring and communicating with other health lawn care technician, documenting clinical information in the electronic or other health record, independently interpreting results and communicating results to the patient/family/caregiver and care coordinating patient plan. Patient alert and oriented x 4 and aware of discussion noted above and in agreeance to plan in management of uncontrolled type 2 dM/insulin resistance on insulin secondary to CKD, hypercortisolism concerns/ need to obtain adrenal imaging. 08/03/2024 Other Spent 25 minute s preparing to see the patient (ex review of tests/chart), obtaining and / or reviewing separately obtained history, performing a medically appropriate examination and/or evaluation, counseling and educating the patient/family/caregiver, ordering medications, tests, or procedures, referring and communicating with other health lawn care technician, documenting clinical information in the electronic or other health record, independently interpreting results and communicating results to the patient/family/caregiver and care coordinating patient plan. Patient alert and oriented x 4 and aware of discussion noted above and in agreeance to plan in management of uncontrolled type 2 DM with CKD, hypothyroidism, dyslipidemia and hypercortisolism. h Plan Of Treatment Pending Test Test Name Order Date *CT ABDOMEN W/O CONTRAST [id number] -US RENAL 09/16/2023 Next Appt Details Provider Name:Yvonne James, 01:20:00 PM, [address] [place] [address], [phone], Insurance Providers Payer Name Payer Address Payer Phone Subscriber Number Group Number Insured Name Patient Relationship to Insured Coverage Start Date Coverage End Date [facility] [address] [place] [phone] [id number] Mikala Sahu Self - patient is the insured Medical (General) History Medical History History ICD Code Type 2 diabetes mellitus with diabetic n europathy, unspecified E11.40 Hypothyroidism, unspecified E03.9 Acquired absence of right leg below knee Z89.511 Essential (primary) hypertension I10 Hospitalization History Reason Date(Month/Year) [facility] 1974
[2024-09-29 12:53] VITALS: BP 134/70; PULSE 96; RESP 18; TEMP 36.3; O2SAT 97; BMI 27.0
--- NOTE | 2024-09-29 13:06 | P.PNAN_ITS ---
Anes - Initial Pre Proc Eval Procedure: Operation Date: 09/29/24 13:30 Proposed Procedures p Colonoscopy - Stephan Steele MD Date/Time: 09/29/24 13:06 Surgeon: Stephan Steele MD Pre Op Diagnosis: Personal history of colon polyps, unspecified Patient Data Age: 69 Gender: F Height: 1.65 m Weight: 73.7 kg Last Vital Signs Temp 97.4 F L 09/29/24 12:53 Pulse 96 09/29/24 12:53 Resp 18 09/29/24 12:53 BP 134/70 09/29/24 12:53 Pulse Ox 97 09/29/24 12:53 O2 Del Method Room Air 09/29/24 12:53 Allergies Allergy/AdvReac Type Severity Reaction Status Date / Time acetaminophen (From Allergy Other Verified 09/29/24 12:46 Darvocet-N) propoxyphene (From Allergy Other Verified 09/29/24 12:46 Darvocet-N) amoxicillin AdvReac Mild Nausea and Verified 09/29/24 12:46 Vomiting clavulanic acid (From AdvReac Mild Nausea and Verified 09/29/24 12:46 Augmentin) Vomiting Home Medications ?Medication ?Instructions ?Recorded ?Confirmed ?Type bupropion HCl 100 mg tablet 100 mg PO DAILY 03/27/21 09/29/24 History cyanocobalamin (vitamin B-12) 1,000 mcg subcut WEEKLY 03/27/21 09/13/24 History 1,000 mcg/mL injection solution dulaglutide 3 mg/0.5 mL 3 mg subcut WEEKLY 03/27/21 09/13/24 History subcutaneous pen injector (Trulicity) fenofibrate nanocrystallized 145 145 mg PO DAILY 03/27/21 09/29/24 History mg tablet gabapentin 600 mg tablet 600 mg PO TID 03/27/21 09/13/24 History ibuprofen 800 mg tablet 800 mg PO BID 03/27/21 09/29/24 History insulin degludec 200 unit/mL (3 68 unit subcut HS 03/27/21 09/29/24 History mL) subcutaneous pen (Tresiba FlexTouch U-200 insulin) levothyroxine 100 mcg tablet 100 mcg PO DAILY 03/27/21 09/29/24 History (Euthyrox) lisinopril 20 mg tablet 20 mg PO DAILY 03/27/21 09/29/24 History omeprazole 40 mg capsule,delayed 40 mg PO DAILY 03/27/21 09/29/24 History release rosuvastatin 20 mg tablet 20 mg PO DAILY 08/10/23 09/29/24 History Patient hx anesthesia problems: none Family hx anesthesia problems: none Results Review: All pre-operative results and documents have been reviewed as part of the pre- operative evaluation. 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 No significant past surgical history Family History Family History Father Family history of diabetes mellitus in first degree relative Mother Hypertension Social History Social History Smoking status: Former smoker Tobacco type: cigarettes Alcohol intake: never Substance use: current Substance use type: marijuana Other substance usage details: prn Living arrangements: with roommate(s) Spiritual care concerns: No Anes - Eval Final PreProcedure Day of Procedure 09/29/24 13:06 Patient weight: normal Heart: regular rate and rhythm Lungs: clear to auscultation Airway: Mallampati scale class III Neurological: alert and oriented Last oral intake: >/= 8 hours ASA classification: III Emergent: no Anesthetic plan: proceed Anesthesia type and monitoring: general GIVS and standard monitoring Results Review: All pre-operative results and documents have been reviewed as part of the pre- operative evaluation. Informed Consent: The patient's anesthetic plan and its attendant risks and benefits were discussed with the patient/family/POA. Questions were solicited and answers provided to the satisfaction of the patient/family/POA.
[2024-09-29] MEDS: LACTATED RINGERS 1,000 ML 150 ML IV CONT (13:11)
--- NOTE | 2024-09-29 13:47 | P.HP_ITS ---
History of Present Illness History of Present Illness Consent: Risks, benefits, and alternatives have been discussed and questions answered. Patient agrees to proceed with procedure. 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 No significant past surgical history Family History Family History Father Family history of diabetes mellitus in first degree relative Mother Hypertension Social History Social History Smoking status: Former smoker Tobacco type: cigarettes Alcohol intake: never Substance use: current Substance use type: marijuana Other substance usage details: prn Living arrangements: with roommate(s) Spiritual care concerns: No Meds Home Medications and Allergies Home Medications ?Medication ?Instructions ?Recorded ?Confirmed ?Type bupropion HCl 100 mg tablet 100 mg PO DAILY 03/27/21 09/29/24 History cyanocobalamin (vitamin B-12) 1,000 mcg subcut WEEKLY 03/27/21 09/13/24 History 1,000 mcg/mL injection solution dulaglutide 3 mg/0.5 mL 3 mg subcut WEEKLY 03/27/21 09/13/24 History subcutaneous pen injector ([facility]) fenofibrate nanocrystallized 145 145 mg PO DAILY 03/27/21 09/29/24 History mg tablet gabapentin 600 mg tablet 600 mg PO TID 03/27/21 09/13/24 History ibuprofen 800 mg tablet 800 mg PO BID 03/27/21 09/29/24 History insulin degludec 200 unit/mL (3 68 unit subcut HS 03/27/21 09/29/24 History mL) subcutaneous pen (Tresiba FlexTouch U-200 insulin) levothyroxine 100 mcg tablet 100 mcg PO DAILY 03/27/21 09/29/24 History (Euthyrox) lisinopril 20 mg tablet 20 mg PO DAILY 03/27/21 09/29/24 History omeprazole 40 mg capsule,delayed 40 mg PO DAILY 03/27/21 09/29/24 History release rosuvastatin 20 mg tablet 20 mg PO DAILY 08/10/23 09/29/24 History Allergies Allergy/AdvReac Type Severity Reaction Status Date / Time acetaminophen (From Allergy Other Verified 09/29/24 12:46 Darvocet-N) propoxyphene (From Allergy Other Verified 09/29/24 12:46 Darvocet-N) amoxicillin AdvReac Mild Nausea and Verified 09/29/24 12:46 Vomiting clavulanic acid (From AdvReac Mild Nausea and Verified 09/29/24 12:46 Augmentin) Vomiting Vital Signs Vital Signs - 24 hr 09/29/24 12:53 Temperature 97.4 F L Pulse Rate 96 Respiratory Rate 18 Blood Pressure 134/70 Pulse Oximetry 97 Oxygen Delivery Room Air Exam Const: General: comfortable and no acute distress HENMT: Face/Nose/Sinus: Normal nares present Eyes: General: appearance normal, both eyes and all related structures Neck: Neck: no JVD Resp: Auscultation: clear to auscultation bilaterally Cardio: Rate: regular rate Rhythm: regular rhythm GI: Inspection: non-distended GI Palp: Yes Soft to palpation Skin: General skin exam: normal color Neuro: General: gait normal Speech: normal speech Extrem: General: normal to inspection Psych: Mental Status: mental status grossly normal Assessment and Plan Assessment and plan (1) Colon polyp: Code(s): K63.5 - Polyp of colon Status: Acute Assessment and Plan: colonoscopy
--- NOTE | 2024-09-29 14:02 | S_PTH ---
PATIENT: Mikala Sahu LOC: [facility]#:[id number] AGE/SX: 69/F ROOM: RE09/29/[address]: Stephan Steele MD : [id number] BED: DIS: 09/29/2024 SPEC #: [id number] RECD: 09/29/24 14:16 STATUS: OPAL EASLEY #: [id number] TONIO: 09/29/24 14:[address]: Stephan Steele DEPT: [facility] Surgical RECD BY: Christina Carrera ENTERED: 09/29/24 14:16 SP TYPE: Surgical OTHR DR: Lakeisha Forrest, PA-C Tissues: A - Colon Polypectomy B - Colon Polypectomy Procedures: Hematoxylin and Eosin Stain Gross and Microscopic Level 4
--- NOTE | 2024-09-29 14:06 | SUR.PREOP ---
Addendum entered by Jyothi Short RN 09/29/24 14:12: Late entry: Blood glucose checked in pre operative area read 360. Dr. Sanchez informed of patient blood glucose. No further plan to treat blood glucose at this time per Dr. Sanchez. Original Note: Late entry: Blood glucose checked in pre operative area read 360. Dr. Sanchez informed of patient blood glucose. No further plan to treat at this time per Dr. Sanchez.
[2024-09-29 14:07] VITALS: BP 109/63; PULSE 76; RESP 18; O2SAT 100
[2024-09-29 14:17] VITALS: BP 117/66; PULSE 78; RESP 18; O2SAT 100
[2024-09-29 14:27] VITALS: BP 117/61; PULSE 88; RESP 20; O2SAT 100
== END 2024-09-29 14:46 | disposition home or self-care (01) ==
PROVIDERS: PCP Physician Assistant; Referring Provider Physician Assistant; Visit Provider Internal Medicine Gastroenterology
PROC: 0DJD8ZZ Inspection of Lower Intestinal Tract, Via Natural or Artificial Opening Endoscopic (ICD-10-PCS; CPT 45378; principal; 2024-09-29 13:30)
DX: Z12.11 Encounter for screening for malignant neoplasm of colon (principal); D12.3 Benign neoplasm of transverse colon; D12.5 Benign neoplasm of sigmoid colon; K64.8 Other hemorrhoids; K57.30 Diverticulosis of large intestine without perforation or abscess without bleeding; E03.9 Hypothyroidism, unspecified; E11.9 Type 2 diabetes mellitus without complications; F32.A Depression, unspecified; F12.90 Cannabis use, unspecified, uncomplicated; Z79.85 Long-term (current) use of injectable non-insulin antidiabetic drugs; Z79.1 Long term (current) use of non-steroidal anti-inflammatories (NSAID); Z79.4 Long term (current) use of insulin; Z98.890 Other specified postprocedural states; Z90.49 Acquired absence of other specified parts of digestive tract; Z87.891 Personal history of nicotine dependence
CPT/HCPCS: 45385; 82948; 88305; J2003; J2704; J7120